=== PATIENT | male | born 1955 | race African-American/Black ===

== ENCOUNTER 2016-10-31 08:12 | Inpatient (IN) | payer MEDICARE ==
[~2016-10-31] VITALS: Ht 182.9 cm; Wt 137.9 kg
[~2016-10-31 08:12] MED LIST: ACETAMINOPHEN500 M1 PO; ALLEGRA 60 MG T60 MG PO; ATIVAN2 MG/ML IV; BENADRYL INJ50 MG/ML IV; BOUDREAUXS113 GM TP; CELEBREX200 MG PO; CLARINEX5 MG PO; CLEOCIN PREMIX600 MG IV; COLACE100 MG PO; COUMADIN5 MG PO; CYMBALTA30 MG PO; DEXTROSE 50%/WA50 ML IV; DIFLUCAN100 MG PO; DIOVAN HCT 80/11 TAB PO; DIOVAN80 MG PO; GLUCAGON1 MG/KIT IM; GLUCAGON1 MG/KIT SQ; GLUCOPHAGE1000 MG PO; GLUCOPHAGE500 MG PO; HUMALOG 30100 UNITS/; HUMALOG 30100 UNITS/ SC; HYDROCHLOROTH12.5 M1 PO; INSTA-GLUCOSE31 GM PO; LANTUS INSULIN10 ML SC; LANTUS SOL100 UNIT/1 SC; LANTUS SOL100 UNIT/1 SQ; LASIX20 MG PO; LEVAQUIN PREMI750 MG IV; MICRO-K10 MEQ PO; NARCAN INJ0.4 MG/ML IV; NEURONTIN 300300 MG PO; NEXIUM40 MG PO; NORCO 10/325 TA1 TA1 PO; NORVASC5 MG PO; ONDANSETRON4 MG/2 M3 IV; OXYCONTIN20 MG PO; OXYCONTIN30 MG PO; PERCOCET 10/3251 TA1 PO; PRILOSEC20 MG PO; PROTONIX40 MG PO; ROBAXIN-750750 MG PO; ROCEPHIN IV; SALINE FLUSH10 ML IJ; SODIUM CL 0.41000 ML IV; TUMS500 MG PO; XANAX1 MG PO; XARELTO10 MG PO
[2016-10-31 09:42] LABS: BASOPHILS 0.2 % (0.0-2.0); EOSINOPHILS 2.4 % (0-7); HEMATOCRIT 38.8 % (42.0-54.0); HEMOGLOBIN 13.8 g/dL (13.5-17.5); IMMATURE GRANULOCYTES 0.2 % (0-5); LYMPHOCYTES 19.9 % (15-50); MCH 28.4 pg (26.0-34.0); MCHC 35.6 g/dL (31.0-37.0); MCV 79.8 fL (80.0-100.0); MEAN PLATELET VOLUME 9.2 fL (7.4-10.4); MONOCYTES 8.3 % (2-11); PLATELET COUNT 276 10x3/uL (130-400); RBC 4.86 10x6/uL (4.20-6.10); RDW 13.2 % (11.5-14.5); WBC 12.3 10x3/uL (4.8-10.8)
[2016-10-31 09:53] LABS: ALBUMIN 3.2 g/dL (3.4-5.0); ANION GAP 11.5 mmol/L (8-16); BILIRUBIN - TOTAL 0.77 mg/dL (0.2-1.3); CALCIUM 9.2 mg/dL (8.5-10.1); CARBON DIOXIDE 28.7 mmol/L (21.0-32.0); CREATININE - SERUM 1.3 mg/dL (0.6-1.3); POTASSIUM - SERUM 4.2 mmol/L (3.5-5.1); PROTEIN - SERUM 8.7 g/dL (6.4-8.2)
[2016-10-31 10:19] LABS: C-REACTIVE PROTEIN 25.6 mg/dL (0.0-0.9)
[2016-10-31 10:46] LABS: ERYTHROCYTE SEDIMENTATION RATE 55 mm/hr (0-20)
[2016-10-31] MEDS ORDERED: LANTUS INSULIN10 ML SC (11:24)
[2016-10-31] MEDS ORDERED: LYRICA100 MG PO (11:24)
[2016-10-31] MEDS ORDERED: INVOKANA100 MG PO (11:24)
[2016-10-31] MEDS ORDERED: PRILOSEC10 M1 PO (11:25)
[2016-10-31] MEDS ORDERED: HYDROCODONE-APA1 TAB PO (11:26)
[2016-10-31] MEDS ORDERED: XYZAL5 MG PO (11:26)
[2016-10-31] MEDS ORDERED: MOBIC7.5 MG PO (11:26)
[2016-10-31] MEDS ORDERED: GLUCOPHAGE1000 MG PO (11:27)
[2016-10-31] MEDS ORDERED: DIOVAN HCT 80-11 TAB PO (11:27)
[2016-10-31] MEDS ORDERED: FUROSEMIDE20 MG PO (11:27)
[2016-10-31] MEDS ORDERED: CYMBALTA60 MG PO (11:28)
[2016-10-31] MEDS ORDERED: UROCIT-K10 MEQ PO (11:28)
[2016-10-31] MEDS ORDERED: ROBAXIN-750750 MG PO (11:29)
[2016-10-31 11:56] VITALS: BP 118/61; BMI 41.3
--- NOTE | 2016-10-31 12:10 | NUR ---
RECIEVED PT FROM ER WHEELCHAIR, ALERT AND ORIENTED, AT BEDSIDE, ORIENTED PT TO ROOM, VS STABLE, CALL LIGHT IN REACH, WILL CONTINUE PLAN OF CARE
--- NOTE | 2016-10-31 15:53 | NUR ---
Patient Name: ROSEMARY KEY Admission Status: ER Accout number: [id number] Admission Date: 10-31-2016 : 1955 Admission Diagnosis: Attending: ТАТЬЯНА Current LOS: 1 Anticipated DC Date: 11-05-2016 Planned Disposition: Home with Home Health Primary Insurance: [employer] CHOICE PPO MCR ADVANT Discharge Planning Comments: CM MET WITH PATIENT REGARDING D/C NEEDS AND PLANS. PATIENT STATED HE LIVES WITH HIS (SAMPSON) AND SHE WILL DRIVE HIM HOME AT DISCHARGE. PATIENT STATED HE HAS 3 STEPS W/RAILS TO ENTER HIS HOME AND NO STAIRS INSIDE. PATIENT IS INDEPENDENT AND HAS A CANE, WALKER, AND GLUCOMETER AT HOME. PATIENT STATED HE CHECKS HIS BS 2X DAILY. PATIENTS PCP IS DR. SCHOFIELD AND PHARMACY IS [facility] ON [address]. PATIENT HAS SIGNED THE CECY FORM WITH [facility] IF NEEDED. CM WILL CONTINUE TO FOLLOW PATIENT WITH D/C NEEDS AND PLANS. PCP DR. KANWAL [facility] [phone] [place] () [phone] Rope Maker: Rosalie Andrade Is the patient Alert and Oriented? Yes 0 * How many steps to enter\exit or inside your home? 3 W/RAILS 0 * PCP DR. SCHOFIELD 0 * Pharmacy [facility] [address] * Preadmission Environment Home with Family 0 * ADLs Independent 0 * Equipment Cane Glucometer Walker 0 * List name and contact numbers for known caregivers / representatives who currently or will assist patient after discharge: SAMPSON () [phone] 0 * Community resources currently utilized None 0 * Additional services required to return to the preadmission environment? Yes 0 * Can the patient safely return to the preadmission environment? Yes 0 * Has this patient been hospitalized within the prior 30 days at any hospital? No 0 Grand Total: 0
[2016-10-31 16:13] VITALS: BP 121/60
--- NOTE | 2016-10-31 18:25 | NUR ---
PT UP TO BATHROOM, DENIES NEEDS, WILL CONTINUE TO MONITOR
[2016-10-31 23:00] VITALS: BP 99/55
[2016-11-01 08:44] VITALS: BP 107/57
--- NOTE | 2016-11-01 10:40 | NUR ---
VANCOMYCIN 1GM/250ML INFUSING ON ARRIVAL TO PACU WITH 125 CC LEFT TO COUNT
[2016-11-01 11:04] VITALS: BP 119/63
--- NOTE | 2016-11-01 11:05 | NUR ---
RETURNED TO ROOM POST OP AWAKE NAD ALERT ORIENTED X 3 PAIN LEVEL 3 VS WNL
[2016-11-01 13:37] VITALS: Ht 182.9 cm; Wt 137.9 kg
--- NOTE | 2016-11-01 14:49 | NUR ---
SITTING UP IN BED WITH VISITORS IN ROOM. VERY CONCERNED ABOUT HOME MEDICATIONS. NEW ORDERS ARE IN TO GIVE THESE. DISCUSSED WITH PATIENTS NURSE AND SHE SAID SHE WAS FIXING TO GIVE THESE. DRESSING TO LEFT FOOT DRY AND INTACT.
[2016-11-01 16:50] VITALS: BP 141/67
[2016-11-01 21:00] VITALS: BP 127/57
[2016-11-02 01:00] VITALS: BP 130/66
[2016-11-02 05:00] VITALS: BP 133/68
--- NOTE | 2016-11-02 07:38 | NUR ---
PT SITTING UP ON SIDE OF THE BED DENIES NEEDS WILL CONT TO MONITOR.
[2016-11-02 08:30] VITALS: BP 107/62
--- NOTE | 2016-11-02 10:46 | OP ---
PATIENT NAME: ROSEMARY KEY MEDICAL RECORD: [id number] :55 LOCATION:[id number] ADMISSION DATE:10/31/16 SURGEON: LANDON KELLEY MD DATE OF OPERATION: 11/01/2016 Orthopedic Surgery Operative Note PREOPERATIVE DIAGNOSIS: Gangrenous osteomyelitis, right fourth toe. POSTOPERATIVE DIAGNOSIS: Gangrenous osteomyelitis, right fourth toe. PROCEDURE: Open amputation of right fourth toe. SURGEON: Landon Kelley MD ANESTHESIA: General. INTRAOPERATIVE COMPLICATIONS: None. SUMMARY OF PATHOLOGIC FINDINGS: Unfortunately, this patient had through and through infection at the base of the right fourth toe with obvious osteomyelitis. Cultures were taken at the toe and was set for permanent specimen. This was not amenable to closure as the infection went into the plantar aspect of the foot. It is going to require further surgery. OPERATIVE SUMMARY IN DETAIL: After obtaining the appropriate preoperative orthopedic surgery consent as well as anesthetic consultation, evaluation and clearance, the patient about operating room and placed on the operating table in supine position. After general laryngeal mask was administered, tourniquet was placed on the proximal aspect of the right lower extremity. It was not deployed during the case. Right lower extremity was prepped and draped in routine sterile fashion. An elliptical incision was made around the toe and was taken off proximal to the MTP joint as the patient had severe purulent osteomyelitis as well as infection into the plantar portion of the foot. This was all debrided back to adequate bleeding tissue. Cultures were taken. The wound was then irrigated and packed with half inch iodoform. Sterile dressings were applied. The patient was awakened, taken to recovery in stable condition. All final needle and sponge counts were correct. TRANSINT:[id number] Voice Confirmation ID: [id number] DOCUMENT ID: [id number] LANDON KELLEY MD at 1046 CC: [id number] DICTATION DATE: 11/01/16 1027 ACCOUNTS PAYABLE PROFESSIONAL: 11/01/16 1148 [place] [address]
[2016-11-02 12:03] VITALS: BP 109/50
--- NOTE | 2016-11-02 12:16 | NUR ---
PT SITTING UP IN BED. TALKING VERY LOUDLY ON THE PHONE. JOKING WITH NURSING STAFF. WAS HERE BUT LEFT. PT DENEIS NEEDS AT THIS TIME WILL CONT TO MONITOR.
[2016-11-02 16:13] VITALS: BP 120/67
--- NOTE | 2016-11-02 17:02 | NUR ---
PT SITTING UP ON SIDE OF BED EATING DINNER DENIES NEEDS WILL CONT TO MONITOR.
--- NOTE | 2016-11-02 18:16 | NUR ---
PT SITTING UP IN BED DENIES NEEDS
--- NOTE | 2016-11-02 19:45 | NUR ---
REC'D IN BED AWAKEN AND ALERT. RESP EVEN AND UNLABORED WITH NO DISTRESS NOTED. CAN EXPRESS NEEDS AND WANTS. DENIES ANY PAIN OR DISCOMFORT AT THIS TIME. TURN AND REPOSITION SELF AB KATERINA. REMAIN ON CONTACT ISOLATION PER ORDERS. ASSESSEMT COMPLETED. NO C/O NOTED OR VOICED. C/L IN REACH AT BEDSIDE.
[2016-11-02 21:14] VITALS: BP 155/78
[2016-11-03 00:42] VITALS: BP 116/51
--- NOTE | 2016-11-03 01:20 | NUR ---
RESTING WITH EYES CLOSED, RESP WITH EASE, NO DISTRESS NOTED, CONTACT AND FALL PRECAUTIONS IN PLACE, CL IN REACH
[2016-11-03 06:08] VITALS: BP 121/61
--- NOTE | 2016-11-03 07:00 | NUR ---
REPORT RECEIVED FROM ENTERTAINMENT USHER NURSE. CALL LIGHT IN REACH.
--- NOTE | 2016-11-03 08:20 | NUR ---
PATIENT IV FLUSHED WITH 10 ML SF. INFUSING WITH NO PROBLEMS NOTED AT THIS TIME. NO COMPLAINTS. PATIENT SITTING UP ON SIDE OF BED EATING. CALL LIGHT WITHIN REACH.
[2016-11-03 08:43] VITALS: BP 147/56
--- NOTE | 2016-11-03 09:58 | NUR ---
ASSESSMENT COMPLETED. NORCO PO WITH AM MEDS ADMINISTERED. CALL LIGHT IN REACH. WILL CONTINUE WITH PLAN OF CARE.
--- NOTE | 2016-11-03 11:53 | NUR ---
IN HALLWAYS WITH FAMILY MEMBER. WAITING ON PATIENT TO GET BACK TO HIS ROOM.
--- NOTE | 2016-11-03 12:13 | NUR ---
KATRIN CARMEN. FSBS 139 SO NO COVERAGE REQUIRED.
[2016-11-03 12:30] VITALS: BP 138/75
--- NOTE | 2016-11-03 13:28 | NUR ---
REQUESTING PAIN PILLS BUT TOO SOON. INFORMED PATIENT THAT HE HAS AN ORDER FOR A MORPHINE SOLE STITCHER HAND BUT HE REFUSES AT THIS TIME. WILL BRING PAIN MEDS WHEN DUE.
--- NOTE | 2016-11-03 14:27 | NUR ---
SPOKE WITH PORTER ABOUT PATIENT HAVING PAIN MEDS SOONER D/T PATIENT'S REQUEST.
--- NOTE | 2016-11-03 16:15 | NUR ---
RIDING IN WC IN HALLWAY. NO NEEDS VOICED AT THIS TIME.
[2016-11-03 16:43] VITALS: BP 110/60
--- NOTE | 2016-11-03 17:19 | NUR ---
SAMANTA PATEL. FSBS 193. HUMALOG 4 UNITS SUBQ TO RIGHT ARM.
--- NOTE | 2016-11-03 18:08 | NUR ---
NO CHANGES IN INITIAL ASSESSMENT. STILL REFUSES SCDs. CALL LIGHT IN REACH. WILL CONTINUE WITH PLAN OF CARE.
--- NOTE | 2016-11-03 19:45 | NUR ---
SITTING IN SIDE OF BED AWAKE AND ALERT VISITING WITH FAMILY. RESP EVEN AND UNLABORED WITH NO DISTRESS NOTED OR VOICED. CAN EXPRESS NEEDS AND WANTS. DRESSING CLEAN DRY AND INTACT TO RIGHT FOOT. ASSESSMENT COMPLETED. C/L IN REACH AT BEDSIDE.
[2016-11-03 21:35] VITALS: BP 137/65
[2016-11-04 01:00] VITALS: BP 112/46
--- NOTE | 2016-11-04 02:00 | NUR ---
PT IN BED WITH NO NEEDS. LEFT FOREARM IV PATENT AND SALINE LOC. PT REFUSES SCD'S. DRESSING TO LEFT FOOT C/D/I. ISOLATION PRECAUTIONS IN PLACE. SIDE RAILS ARE UP X 2. BED IS LOW. CALL LIGHT IN REACH.
[2016-11-04 04:00] VITALS: BP 134/71
[2016-11-04 08:29] VITALS: BP 110/58
--- NOTE | 2016-11-04 09:01 | NUR ---
ASSESSMENT COMPLETED. NORCO PO WITH AM MEDS ADMINISTERED. DR. KELLEY PULLED OFF DRSG TO RIGHT FOOT. CHANGED PER ORDER. CANNOT FIND LANTUS AT THAT TIME. REFUSES SCDs. CALL LIGHT IN REACH. WILL CONTINUE WITH PLAN OF CARE.
--- NOTE | 2016-11-04 10:28 | NUR ---
WITHOUT NEEDS AT PRESENT.CALL LIGHT IN REACH
--- NOTE | 2016-11-04 11:11 | NUR ---
LANTUS 40 UNITS AND REGULAR INSULIN SUBQ TO RIGHT ARM D/T BLOOD SUGAR OF 253. IV ZOSYN. GUANAKON PO. CALL LIGHT IN REACH.
--- NOTE | 2016-11-04 12:36 | NUR ---
REQUESTING PAIN MEDS. DEJA 2 PO. CALL LIGHT IN REACH.
--- NOTE | 2016-11-04 14:11 | NUR ---
NEW ORAL ABX ADMINISTERED. SIDE EFFECTS DISCUSSED.
--- NOTE | 2016-11-04 14:13 | NUR ---
NUTRITION MONITORING & EVAL CHART REVIEWED. PT REMAINS IN ISOLATION. 100% INTAKE DIABETIC DIET. WILL CONTINUE TO PROVIDE DIET, MONITOR PT PROGRESS. RD FOLLOWING
[2016-11-04 14:42] LABS: BASOPHILS 0.3 % (0.0-2.0); EOSINOPHILS 4.9 % (0-7); HEMATOCRIT 36.3 % (42.0-54.0); HEMOGLOBIN 12.8 g/dL (13.5-17.5); IMMATURE GRANULOCYTES 0.2 % (0-5); MCHC 35.3 g/dL (31.0-37.0); MCV 79.4 fL (80.0-100.0); MONOCYTES 5.6 % (2-11); PLATELET COUNT 305 10x3/uL (130-400); RBC 4.57 10x6/uL (4.20-6.10); RDW 13.1 % (11.5-14.5); WBC 8.7 10x3/uL (4.8-10.8)
[2016-11-04 14:51] LABS: ANION GAP 13.1 mmol/L (8-16); CALCIUM 8.4 mg/dL (8.5-10.1); CARBON DIOXIDE 25.7 mmol/L (21.0-32.0); CREATININE - SERUM 1.2 mg/dL (0.6-1.3); POTASSIUM - SERUM 4.8 mmol/L (3.5-5.1)
--- NOTE | 2016-11-04 16:20 | NUR ---
OUT IN HALLWAY WITH . NO DISTRESS NOTED.
[2016-11-04 16:57] VITALS: BP 128/65
--- NOTE | 2016-11-04 17:10 | NUR ---
8 UNITS INSULIN D/T FSBS OF 202.
--- NOTE | 2016-11-04 18:11 | NUR ---
NO CHANGES IN INITIAL ASSESSMENT. STILL RFUSES SCDs. CALL LIGHT IN REACH. WILL CONTINUE WITH PLAN OF CARE.
[2016-11-04 19:00] VITALS: BP 108/62
--- NOTE | 2016-11-04 19:55 | NUR ---
PATIENT REFUSED MEDS EXCEPT FOR ANTIBIOTICS. PATIENT STATED HE DOES NOT TAKE HIS MEDS THIS LATE AT HOME. PATIENT'S BED IN LOWEST POSITION AND CALL LIGHT WITHIN REACH.
[2016-11-05 04:00] VITALS: BP 135/75
[2016-11-05 08:05] VITALS: BP 111/59
[2016-11-05] MEDS ORDERED: KEFLEX500 MG PO (08:27)
[2016-11-05] MEDS ORDERED: CLEOCIN HCL150 MG PO (08:28)
[2016-11-05] MEDS ORDERED: DAKIN'S 0.125%480 M1 TOPICAL (08:29)
[2016-11-05] MEDS ORDERED: HYDROCODONE-APA1 TAB PO (08:30)
--- NOTE | 2016-11-05 08:58 | NUR ---
PT ASSESSEMENT COMPLETE ON WALKING ROUNDS PT ALERT ORIENTED X 3 LUNGS CLEAR BILATERALY BSA X 4 DRESSING TO RIGHT FOOT IN TACT. PT TO DISCHARGE TODAY IF OK WITH DR KELLEY. WILL AWAIT ORDERS
--- NOTE | 2016-11-05 10:50 | NUR ---
PATIENT IN CONTACT ISOLATION. ISOLATION PRECAUTIONS MAINTAINED. MARQUEZ NGUYEN IN ROOM WITH PATIENT CHANGING DRESSING ON PATIENT'S FOOT. PATIENT STATED HE IS ABOUT TO BE DISCHARGED. PATIENT SMILING, STATED HE IS EXCITED TO GET TO GO HOME. PATIENT DENIES NEEDS.
--- NOTE | 2016-11-05 10:53 | NUR ---
DRESSING CHANGED PER ORDER TO RIGHT FOOT WAKING SHOE ON AND INSTRUCTIONS GIVEN FOR DRESSING CHANGE WELL DISCAHRGE INSTRUCTIONS GIVEN PT STATED UNDERSTANDING. PIV DISCONTINUED NO DISTRESS NOTED TO TRANSPORT HOME VIA PRIVATE VEHICLE.
== END 2016-11-05 12:34 | disposition home health service (06) | DRG 256 ==
LOC: D.ER 08:12 → D.MS 10:49
PROVIDERS: Emergency Medicine; Orthopaedic Surgery; Student in an Organized Health Care Education/Training Program; ADMIT Legal Medicine
PROC: 0Y6V0Z0 Detachment at Right 4th Toe, Complete, Open Approach (ICD-10-PCS; principal; 2016-11-01 11:30)
DX: E11.52 Type 2 diabetes mellitus with diabetic peripheral angiopathy with gangrene (principal); M86.9 Osteomyelitis, unspecified; Z68.41 Body mass index [BMI] 40.0-44.9, adult; E11.69 Type 2 diabetes mellitus with other specified complication; E11.42 Type 2 diabetes mellitus with diabetic polyneuropathy; B95.62 Methicillin resistant Staphylococcus aureus infection as the cause of diseases classified elsewhere; B95.1 Streptococcus, group B, as the cause of diseases classified elsewhere; B96.4 Proteus (mirabilis) (morganii) as the cause of diseases classified elsewhere; B96.1 Klebsiella pneumoniae [K. pneumoniae] as the cause of diseases classified elsewhere; Z79.4 Long term (current) use of insulin; B19.20 Unspecified viral hepatitis C without hepatic coma; I10 Essential (primary) hypertension; E66.01 Morbid (severe) obesity due to excess calories; E78.5 Hyperlipidemia, unspecified; E03.9 Hypothyroidism, unspecified; M19.90 Unspecified osteoarthritis, unspecified site; F32.9 Major depressive disorder, single episode, unspecified; F17.200 Nicotine dependence, unspecified, uncomplicated

== ENCOUNTER → 2016-12-05 19:49 | Outpatient (CLI) | payer MEDICARE ==
[2016-11-01 13:37] VITALS: BMI 41.2
[~2016-12-05 19:49] MED LIST changes: +CLEOCIN HCL150 MG PO; +CYMBALTA60 MG PO; +DAKIN'S 0.125%480 M1 TOPICAL; +DIOVAN HCT 80-11 TAB PO; +FUROSEMIDE20 MG PO; +HYDROCODONE-APA1 TAB PO; +INVOKANA100 MG PO; +KEFLEX500 MG PO; +LYRICA100 MG PO; +MOBIC7.5 MG PO; +PRILOSEC10 M1 PO; +UROCIT-K10 MEQ PO; +XYZAL5 MG PO
== END | disposition home or self-care (01) ==
LOC: D.LABREF 19:49
DX: M86.9 Osteomyelitis, unspecified (principal); Z89.421 Acquired absence of other right toe(s)

== ENCOUNTER → 2017-03-21 09:11 | Outpatient (CLI) | payer MEDICARE ==
[2016-11-01 13:37] VITALS: BMI 41.2
[2017-03-21 09:40] LABS: BASOPHILS 0.3 % (0-2); EOSINOPHILS 4.4 % (0-7); HEMATOCRIT 41.6 % (42.0-54.0); HEMOGLOBIN 14.9 g/dL (13.5-17.5); IMMATURE GRANULOCYTES 0.1 % (0-5); LYMPHOCYTES 40.2 % (15-50); MCH 28.4 pg (26.0-34.0); MCHC 35.8 g/dL (31.0-37.0); MCV 79.2 fL (80.0-100.0); MEAN PLATELET VOLUME 9.3 fL (7.4-10.4); RBC 5.25 10x6/uL (4.20-6.10); RDW 13.8 % (11.5-14.5); WBC 7.3 10x3/uL (4.8-10.8)
[2017-03-21 09:47] LABS: PLATELET COUNT 193 10x3/uL (130-400)
[2017-03-21 11:28] LABS: ERYTHROCYTE SEDIMENTATION RATE 15 mm/hr (0-20)
== END | disposition home or self-care (01) ==
LOC: D.RAD 09:11
PROVIDERS: Orthopaedic Surgery
DX: M25.552 Pain in left hip (principal)

== ENCOUNTER → 2017-03-26 07:42 | Outpatient (CLI) | payer MEDICARE ==
[2016-11-01 13:37] VITALS: BMI 41.2
== END | disposition home or self-care (01) ==
LOC: D.NM 07:42
DX: M25.552 Pain in left hip (principal)

== ENCOUNTER → 2017-04-02 19:25 | Outpatient (CLI) | payer MEDICARE ==
[2016-11-01 13:37] VITALS: BMI 41.2
== END | disposition home or self-care (01) ==
LOC: D.LABREF 19:25
DX: Z96.642 Presence of left artificial hip joint (principal)

== ENCOUNTER 2017-04-09 10:00 | Inpatient (IN) | payer MEDICARE ==
[~2017-04-09] VITALS: Ht 185.4 cm; Wt 90.7 kg
[2017-04-09 11:57] LABS: APPEARANCE CLEAR (CLEAR); BILIRUBIN NEGATIVE (NEGATIVE); COLOR YELLOW (YELLOW); GLUCOSE 1000 mg/dL (NEGATIVE); KETONE NEGATIVE (NEGATIVE); LEUKOCYTE ESTERASE NEGATIVE (NEGATIVE); NITRITE NEGATIVE (NEGATIVE); PROTEIN NEGATIVE (NEGATIVE); UROBILINOGEN NORMAL (NORMAL)
[2017-04-09 12:21] LABS: APTT 30.9 SECONDS (22.8-39.4); INR 0.93 (0.85-1.17); PROTIME 12.3 SECONDS (11.6-15.0)
[2017-04-09 12:23] LABS: ALBUMIN 3.5 g/dL (3.4-5.0); ANION GAP 12.4 mmol/L (8-16); BILIRUBIN - TOTAL 0.3 mg/dL (0.2-1.3); CALCIUM 8.8 mg/dL (8.5-10.1); CARBON DIOXIDE 27.1 mmol/L (21.0-32.0); CREATININE - SERUM 1.2 mg/dL (0.6-1.3); POTASSIUM - SERUM 4.5 mmol/L (3.5-5.1); PROTEIN - SERUM 7.7 g/dL (6.4-8.2)
[2017-04-09 12:49] LABS: BASOPHILS 0.4 % (0-2); HEMATOCRIT 40.7 % (42.0-54.0); HEMOGLOBIN 14.3 g/dL (13.5-17.5); IMMATURE GRANULOCYTES 0.4 % (0-5); LYMPHOCYTES 47.9 % (15-50); MCH 28.3 pg (26.0-34.0); MCHC 35.1 g/dL (31.0-37.0); MCV 80.4 fL (80.0-100.0); MEAN PLATELET VOLUME 9.6 fL (7.4-10.4); MONOCYTES 7.1 % (2-11); NEUTROPHILS 39.2 % (40-80); PLATELET COUNT 237 10x3/uL (130-400); RBC 5.06 10x6/uL (4.20-6.10); RDW 13.9 % (11.5-14.5); WBC 8.1 10x3/uL (4.8-10.8)
[2017-04-09] MEDS ORDERED: XYZAL5 MG PO (14:30)
[2017-04-14] VITALS (7 sets, daily range): BP systolic 129–188; BP diastolic 66–95; BMI 39.6
[2017-04-15] VITALS (10 sets, daily range): BP systolic 139–210; BP diastolic 55–111; BMI 26.4
--- NOTE | 2017-04-15 05:25 | NUR ---
ABOUT 1/3 OF THE PINK PAD THAT IS UNDER PATIENT IS SATURATED WITH BLOOD FROM THE LEFT HIP. RE-ENFORCED THE DRESSING WITH 2 BOXES OF 4X4 GAUZE AND AN ABD PAD. CHANGED THE PAD. BROUGHT PATIENT A CUP OF ICE WATER. PATIENT STATED HE PAIN IS STILL SEVERE BUT BETTER THEN IT HAS BEEN ALL NIGHT. PATIENT DENIES NEEDS AT THIS TIME.
[2017-04-15 06:36] LABS: HEMATOCRIT 36.7 % (42.0-54.0); HEMOGLOBIN 12.9 g/dL (13.5-17.5); MCH 28.5 pg (26.0-34.0); MCHC 35.1 g/dL (31.0-37.0); MCV 81.2 fL (80.0-100.0); MEAN PLATELET VOLUME 9.4 fL (7.4-10.4); RBC 4.52 10x6/uL (4.20-6.10); WBC 11.5 10x3/uL (4.8-10.8)
--- NOTE | 2017-04-15 08:20 | NUR ---
AWAKE AND ALERT. ORIENTED X3. NO C/O AT THIS TIME. IS HAVING SOME PERIODS OF CONFUSION RE CURRENT CONDITION. LUNGS ARE CLEAR BILATERALLY, NO COUGH NOTED. SKIN IS INTACT WITHOUT REDNESS EXCEPT INCISION TO LEFT HIP WHICH HAS A DRY INTACT DRESSING IN PLACE. IV TO LEFT WRIST IS PATENT WITHOUT REDNESS AT INSERTION SITE. NEURO CHECKS WNL. DENIES NEEDS AT THIS TIME.
--- NOTE | 2017-04-15 10:00 | NUR ---
RESTING QUIETLY VOIDED 600 CC CLEAR YELLOW URINE IN URINAL. DENIES NEEDS.
--- NOTE | 2017-04-15 12:00 | NUR ---
FSBD 295. GIVEN 6 UNITS HUMALOG SUBQ PER SS. LUNCH SERVED IN ROOM. AT BEDSIDE.
--- NOTE | 2017-04-15 13:26 | NUR ---
REQUESTED AND GIVNE ONE PERCOCET PO FOR C/O LEFT HIP PAIN LEVEL 8. WILL MONITOR.
--- NOTE | 2017-04-15 17:00 | NUR ---
FSBS 195. MELANI 6 UNITS HUMALOG SUBQ PER SS. SUPPER SERVED IN ROOM.
--- NOTE | 2017-04-15 18:00 | NUR ---
DRESSING TO LEFT HIP IS SOILED WITH BLOODY DRAINAGE. DRESSING TAKEN DOWN TO ORIGIANL AND REPLACED WITH 4X4 AND ABDOMINAL PADS. INCONTINENT OF URINE. SKIN CARE PER STAFF. LINENS CHANGED. REQUESTED AND GIVNE ONE PERCOCET PO FOR C/O LEFT HIP PAIN LEVEL 9. WILL MONITOR.
--- NOTE | 2017-04-15 21:00 | NUR ---
PATIENT'S DRESSING TO LEFT HIP IS SATURATED. REMOVED THE GAUZE AND ABD PADS, COMPLETELY SATURATED. THE AQUACEL DRESSING SATURATED. REMOVING AND CLEANED WITH STERILE WOUND ELECTRICAL LINE WORKER SPRAY AND PATTED DRY WITH STERILE 4X4 GAUZE. APPLIED A NEW AQUACEL DRESSING. THE INFERIOR PORTION OF THE INCISION, THE LAST 2 GEO, ARE NOT COVERED BY THE AQUACEL DRESSING. APPLIED A MEPILEX DRESSING TO COVER THE LAST 2 GEO OF THE INCISION. INCISION IS NOW FULLY COVERED. APPLIED 2 PACKAGES OF 4X4 GAUZE AND 2 ABD PADS TO THE INCISION AND TAPED IT ALL DOWN. PATIENT LYING ON HIS RIGHT SIDE INDEPENDENTLY THROUGH THE ENTIRE DRESSING CHANGE. CHANGED PINK PAD, PATIENT ROLLED ALMOST COMPLETELY INDEPENDENTLY TO HIS FAR RIGHT SIDE, THEN TO HIS BACK I CHANGED THE PAD. PATIENT TOLERATED WELL, DID HOLLAR OUT IN PAIN WITH THE MOVEMENT OF HIS LEFT LEG. PATIENT'S SON IS AT BEDSIDE. BOTH DENY NEEDS. BROUGHT 2 ICE PACKS AND PUT THEM ON THE LEFT HIP, ON TOP OF THE DRESSING. BED IN LOWEST POSITION, CALL LIGHT IN REACH. BED RAILS UP X'S 2.
[2017-04-16] VITALS: BP 134/70
[2017-04-16 04:00] VITALS: BP 114/55
--- NOTE | 2017-04-16 06:12 | NUR ---
PATIENT RESTLESS, MOVING AROUND IN THE BED OFTEN. WILL GO TO SLEEP FOR A FEW MINUTES, THEN WAKE UP IN PAIN AND HOLLAR OUT. PATIENT MOVING AROUND IN THE BED, MOANING AND HOLLARING UPON MOVEMENT. PATIENT DENIES NEEDS. ASSISTED PATIENT GETTING REPOSITIONED. BED IN LOWEST POSITION, CALL LIGHT IN REACH. BED RAILS UP X'S 2.
[2017-04-16 06:28] LABS: HEMATOCRIT 31.5 % (42.0-54.0); MCH 28.2 pg (26.0-34.0); MCHC 34.9 g/dL (31.0-37.0); MCV 80.8 fL (80.0-100.0); MEAN PLATELET VOLUME 9.2 fL (7.4-10.4); PLATELET COUNT 181 10x3/uL (130-400); RDW 13.9 % (11.5-14.5); WBC 9.8 10x3/uL (4.8-10.8)
--- NOTE | 2017-04-16 07:30 | NUR ---
AWAKE AND ALERT. ORIENTED X3. C/O NEED TO BE OOB. WILL GET PT TO ASSIST. LUNGS ARE CLEAR BILATERALLY, NO COUGH NOTED. SKIN IS INTACT WITHOUT REDNESS EXCEPT INCISION TO LEFT HIP WHICH IS STILL OOZING BLOOD. ICE BAG APPLIED TO AREA. WILL MONITOR. IV TO LEFT WRIST IS PATENT WTIHOUT REDNESS AT INSERTION SITE. DENIES NEEDS AT THIS TIME.
[2017-04-16 07:31] LABS: ERYTHROCYTE SEDIMENTATION RATE 47 mm/hr (0-20)
[2017-04-16 08:18] VITALS: BP 124/65
--- NOTE | 2017-04-16 09:00 | NUR ---
TOOK AM MEDS WITHOUT DIFFICULTY. REFUSED OFFER OF PAIN MED. WILL MONITOR.
--- NOTE | 2017-04-16 09:30 | NUR ---
UP TO SIDE OF BED PER PT. NOT AMBULATING AT THIS TIME.
--- NOTE | 2017-04-16 12:00 | NUR ---
FSBS 148. NO COVERAGE REQUIRED.
[2017-04-16 12:39] VITALS: BP 117/64
--- NOTE | 2017-04-16 13:04 | NUR ---
C/O GENERALIZED ITCHING. GIVEN 25MG BENADRYL SLOW IVP FOR SAME. WILL MONITOR.
[2017-04-16 15:59] VITALS: BP 125/62
--- NOTE | 2017-04-16 16:03 | NUR ---
RESTING QUIETLY AT THIS TIME. DENIES NEEDS. FAMILY AT BEDSIDE.
--- NOTE | 2017-04-16 17:19 | NUR ---
FSBS 152. GIVEN 2 UNITS HUMALOG SUBQ PER SS. ALSO REQUESTED ONE PERCOCET PO FOR C/O LEFT HIP PAIN LEVEL 7. WILL MONITOR.
--- NOTE | 2017-04-16 18:20 | NUR ---
ATE MOST OF SUPPER. REPORTS PAIN IMPROVED AT THIS TIME. AT BEDSIDE. NO CHANGES NOTED. DENIES NEEDS. ICE APPLIED TO LEFT HIP.
--- NOTE | 2017-04-16 19:15 | NUR ---
PATIENT IS AWAKE, ALERT AND ORIENTED X'S 4. RESPIRATINS ARE EVEN AND UNLABORED ON ROOM AIR. PATIENT'S SON AT BEDSIDE. ASSISTED PATIENT SCRATING HIS FOOT. PATIENT DENIES FURTHER NEEDS AT THIS TIME.
[2017-04-16 20:00] VITALS: BP 114/65
--- NOTE | 2017-04-16 23:11 | NUR ---
PATIENT IS RESTING QUIETLY WITH EYES CLOSED. PATIENT WAKES UP OCCASIONALLY AND MOANS IN PAIN, THEN GOES BACK TO SLEEP. HOB 30 DEGREES.
[2017-04-17] VITALS (7 sets, daily range): BP systolic 101–124; BP diastolic 39–60
--- NOTE | 2017-04-17 04:45 | NUR ---
LEFT HIP DRESSING SATURATED WITH BLOOD. REMOVED DRESSING, CLEANED WITH WOUND HOME AGENT AND STERILE 4X4 GAUZE. PATTED DRY USING THE GAUZE. APPLIED A NEW DRESSING USING 2 MEPILEX DRESSINGS TO COVER THE ENTIRE INCISION. THEN APPLIED 2 BOXES OF 4X4 GAUZE AND 2 ABD PADS, TAPED DOWN. CHANGED GOWN AND PAD.
[2017-04-17 06:17] LABS: ANION GAP 10.7 mmol/L (8-16); CALCIUM 8.2 mg/dL (8.5-10.1); CARBON DIOXIDE 27.5 mmol/L (21.0-32.0); CREATININE - SERUM 1.1 mg/dL (0.6-1.3); POTASSIUM - SERUM 4.2 mmol/L (3.5-5.1)
[2017-04-17 07:30] LABS: BASOPHILS 0.2 % (0-2); EOSINOPHILS 4.9 % (0-7); HEMATOCRIT 29.6 % (42.0-54.0); HEMOGLOBIN 10.3 g/dL (13.5-17.5); IMMATURE GRANULOCYTES 0.4 % (0-5); LYMPHOCYTES 12.9 % (15-50); MCH 28.1 pg (26.0-34.0); MCHC 34.8 g/dL (31.0-37.0); MCV 80.9 fL (80.0-100.0); MEAN PLATELET VOLUME 9.3 fL (7.4-10.4); NEUTROPHILS 70.6 % (40-80); PLATELET COUNT 198 10x3/uL (130-400); RBC 3.66 10x6/uL (4.20-6.10); WBC 8.4 10x3/uL (4.8-10.8)
--- NOTE | 2017-04-17 07:45 | NUR ---
AWAKE AND ALERT AT THIS TIME. ASSESSMENT PERFORMED PER FLOWSHEET. GRIZZLY WORKER IN USE FOR PAIN. DRESSING TO LEFT HIP, C/D/I. BED ALARM ON AND CALL LIGHT IN REACH. WILL CONTINUE WITH PLAN OF CARE.
--- NOTE | 2017-04-18 02:19 | NUR ---
ALERT & ORIENTED. DRESSING TO LEFT HIP C/D/I. PT RELIABILITY TECHNICIAN FOR PAIN CONTROL. GAVE PERCOCET FOR BREAKTHROUGH PAIN. NO OTHER NEEDS. WILL CONTINUE OT MONITOR.
[2017-04-18 03:51] VITALS: BP 136/55
[2017-04-18 06:15] LABS: BASOPHILS 0.2 % (0-2); EOSINOPHILS 5.5 % (0-7); HEMATOCRIT 28.6 % (42.0-54.0); IMMATURE GRANULOCYTES 0.3 % (0-5); MCH 27.9 pg (26.0-34.0); MCV 79.9 fL (80.0-100.0); PLATELET COUNT 212 10x3/uL (130-400); RBC 3.58 10x6/uL (4.20-6.10); RDW 13.9 % (11.5-14.5)
[2017-04-18 06:17] LABS: ANION GAP 11.4 mmol/L (8-16); CALCIUM 7.8 mg/dL (8.5-10.1); CARBON DIOXIDE 26.8 mmol/L (21.0-32.0); CREATININE - SERUM 1.2 mg/dL (0.6-1.3); POTASSIUM - SERUM 4.2 mmol/L (3.5-5.1)
[2017-04-18 06:19] LABS: WBC 6.2 10x3/uL (4.8-10.8)
[2017-04-18 08:25] VITALS: BP 125/62
--- NOTE | 2017-04-18 09:26 | NUR ---
SCHEDULED MEDICATIONS ADMINISTERED AT THIS TIME. BS 103, PT REFUSED LANTUS. ASSESSMENT PERFORMED AT THIS TIME. BED ALARM ON. IV TO LEFT WRIST PATENT. GRAPHICS EDIT TECHNICIAN IN USE FOR PAIN. CALL LIGHT IN REACH, WILL CONTINUE WITH PLAN OF CARE.
[2017-04-18 12:21] VITALS: BP 136/62
--- NOTE | 2017-04-18 13:30 | NUR ---
22 GUAGE IV SITED TO R FOREARM. X2 ATTEMPTS. RECONNECTED TO IV TUBING. ALERTED WALESKA POWELL.
--- NOTE | 2017-04-18 14:20 | NUR ---
22G IV SITED TO PT'S RIGHT FOREARM X4 ATTEMPTS. BRISK BLOOD RETURN PRESENT. ASSISTED PT TO SIDE OF BED SO THAT HE COULD USE URINAL AT THIS TIME.
--- NOTE | 2017-04-18 16:15 | NUR ---
Patient Name: ROSEMARY KEY Admission Status: Elective Accout number: [id number] Admission Date: 04-14-2017 : 1955 Admission Diagnosis:INFECT/INFLM REACTION DUE TO INTERNAL LEFT HIP PROSTH, Attending: IBRAHIMA Current LOS: 4 Anticipated DC Date: 04-21-2017 Planned Disposition: Home Primary Insurance: [employer] CHOICE PPO MCR ADVANT Discharge Planning Comments: CM MET WITH PATIENT REGARDING D/C NEEDS AND PLANS. PATIENT STATED HE LIVES WITH HIS AND SHE WILL DRIVE HIM HOME AT DISCHARGE. PATIENT STATED THERE IS ONE STEP TO ENTER HOME AND NO STAIRS INSIDE. PATIENT STATED HE IS INDEPENDENT WITH HIS CARE AND HAS A WALKER AND GLUCOMETER (CHECKS 2X DAILY) AT HOME. PATIENTS PCP IS DR. SCHOFIELD AND PHARMACY IS [facility] ON [address] PATIENT WANTS TO THINK ABOUT WHICH HOME HEALTH. CM WILL CONTINUE TO FOLLOW PATIENT WITH D/C NEEDS AND PLANS. PCP DR. [facility]ANWAL [facility] ON [address] [phone] [place] () [phone] Agriculture Engineer: Rosalie Andrade Is the patient Alert and Oriented? Yes 0 * How many steps to enter\exit or inside your home? 1 0 * PCP DR. SCHOFIELD 0 * Pharmacy [facility] ON [address] 0 * Preadmission Environment Home with Family 0 * ADLs Independent 0 * Equipment Glucometer Walker 0 * List name and contact numbers for known caregivers / representatives who currently or will assist patient after discharge: ELKIN () [phone] * Community resources currently utilized None 0 * Additional services required to return to the preadmission environment? Yes 0 * Can the patient safely return to the preadmission environment? Yes 0 * Has this patient been hospitalized within the prior 30 days at any hospital? No 0 Grand Total: 0
--- NOTE | 2017-04-18 19:50 | NUR ---
REC'D. ASSITING WITH BED BATH DRSG LEFT HIP DRY AND INTACT AT PRESENT TIME. STATES JUST CHGED. IT ABOUT 15MIN. AGO.MINIMAL AMT, SWELLING TO THIGH BUT PALABLE. FOOT WARM GOOD PEDAL PULSE WIGGLES TOES AND DORSIFLEXES C/O SOME NUMBNESS PRIOR TO INITIAL SURGERY.(DIABETIC) WILL CONTINUE TO MONITOR FOR ANY CHGES IN NEUROVASCULAR STATUS AND FOLLOW CURRENT PLAN OF CARE.
[2017-04-18 20:00] VITALS: BP 121/65
[2017-04-19] VITALS: BP 125/60
[2017-04-19 04:00] VITALS: BP 130/72
[2017-04-19 05:27] LABS: HEMATOCRIT 27.8 % (42.0-54.0); HEMOGLOBIN 9.6 g/dL (13.5-17.5); MCH 27.8 pg (26.0-34.0); MCHC 34.5 g/dL (31.0-37.0); MCV 80.6 fL (80.0-100.0); MEAN PLATELET VOLUME 8.7 fL (7.4-10.4); RBC 3.45 10x6/uL (4.20-6.10); WBC 5.8 10x3/uL (4.8-10.8)
[2017-04-19 05:36] LABS: CALC OSMOLALITY 272 mosm/kg (275-300); CALCIUM 8.1 mg/dL (8.5-10.1); CARBON DIOXIDE 27.2 mmol/L (21.0-32.0); CHLORIDE - SERUM 102 mmol/L (98-107); CREATININE - SERUM 0.9 mg/dL (0.6-1.3); POTASSIUM - SERUM 4.4 mmol/L (3.5-5.1); SODIUM 135 mmol/L (136-145); UREA NITROGEN 18 mg/dL (7-18); eGFR NON AFRICAN AMERICAN > 90 mL/min (90-120)
[2017-04-19 05:41] LABS: GLUCOSE 118 mg/dL (74-106)
--- NOTE | 2017-04-19 07:45 | NUR ---
ASSESSMENT COMPLETE. IV TO L HAND PATENT. 1/2NS INFUSING AT 30 CC/HR VIA PUMP. CARD SERVICES SPECIALIST DILAUDID 0.2-10-4 IN USE FOR PAIN CONTROL. DENIES ANY NEEDS AT THIS TIME.
[2017-04-19 08:02] VITALS: BP 107/72
[2017-04-19 11:49] VITALS: BP 132/67
--- NOTE | 2017-04-19 12:00 | NUR ---
SITTING UP ON SIDE OF BED. DENIES ANY NEEDS AT PRESENT.
--- NOTE | 2017-04-19 14:50 | NUR ---
TRANSFERRED TO ROOM 2215 WITH BELONGINGS.
[2017-04-19 16:22] VITALS: BP 129/65
--- NOTE | 2017-04-19 17:19 | NUR ---
DENIES ANY NEEDS AT PRESENT.
[2017-04-19 20:00] VITALS: BP 129/63
--- NOTE | 2017-04-19 20:00 | NUR ---
A&O, DENIES NEEDS, BED LOWEST POSITION, CALL LIGHTIN REACH, DRESSING TO LEFT HIP CHANGED AND CLEANED, WILL CONTINUE TO MONITOR
[2017-04-20] VITALS: BP 142/68
--- NOTE | 2017-04-20 02:02 | NUR ---
ALERT/AWAKE ORIENTED X 4. SITTING ON SIDE OF BED. DENIES ANY NEEDS OR DISCOMFORTS.
[2017-04-20 04:00] VITALS: BP 136/72
[2017-04-20 05:01] LABS: HEMATOCRIT 28.1 % (42.0-54.0); HEMOGLOBIN 9.8 g/dL (13.5-17.5); MCH 28.1 pg (26.0-34.0); MCHC 34.9 g/dL (31.0-37.0); MCV 80.5 fL (80.0-100.0); MEAN PLATELET VOLUME 8.7 fL (7.4-10.4); RBC 3.49 10x6/uL (4.20-6.10); WBC 6.7 10x3/uL (4.8-10.8)
[2017-04-20 05:11] LABS: CALC OSMOLALITY 276 mosm/kg (275-300); CALCIUM 8.4 mg/dL (8.5-10.1); CARBON DIOXIDE 30.2 mmol/L (21.0-32.0); CHLORIDE - SERUM 102 mmol/L (98-107); GLUCOSE 167 mg/dL (74-106); POTASSIUM - SERUM 4.5 mmol/L (3.5-5.1); SODIUM 135 mmol/L (136-145); UREA NITROGEN 21 mg/dL (7-18); eGFR NON AFRICAN AMERICAN 81 mL/min (90-120)
[2017-04-20 07:51] VITALS: BP 153/79
--- NOTE | 2017-04-20 07:52 | NUR ---
PATIENT SITTING UP ON THE SIDE OF HIS BED. PATIENT IS AWAKE, ALERT, AND ORIENTED X4. PATIENT RATES HIS PAIN LEVEL AN "8" ON A 0-10 SCALE. PATIENT REPORTS PAIN IN HIS LEFT HIP AREA. IV SITE PATENT WITHOUT ANY S/S OF INFECTION IN PATIENT'S LEFT HAND. ADMINISTRATIVE LAW JUDGE DILAUDID IN USE FOR PATIENT'S PAIN CONTROL. PATIENT DENIES ANY NEEDS AT PRESENT TIME. CALL LIGHT IN PATIENT'S REACH. WILL MONITOR PATIENT.
[2017-04-20 15:55] VITALS: BP 117/58
--- NOTE | 2017-04-20 16:52 | NUR ---
FSBS 157. 2 UNITS OF HUMALOG SLIDING SCALE INSULIN GIVEN TO PATIENT. PATIENT VISITING WITH HIS SISTER AND DENIES NEEDS AT PRESENT TIME. CALL LIGHT IN PATIENT'S REACH. WILL MONITOR.
[2017-04-20 20:00] VITALS: BP 138/64
--- NOTE | 2017-04-20 20:00 | NUR ---
ASSESSMENT PRE FLOWSHEET. DRESSING TO LEFT HIP OLD DRY BLOOD NOTED. IV PATENT LEFT HAND OF 1/2NS AT 30CC'S/HR SITE CLEAR. REFUSES SCD'S.FAMILY IN ROOM
--- NOTE | 2017-04-20 20:26 | NUR ---
C/O PAIN INCISIONAL AREA RATES #10 ON PAIN LEVEL. PERCOCET 10 TAB ONE PO GIVEN FOR PAIN CONTROL.
--- NOTE | 2017-04-20 21:15 | NUR ---
MEDS GIVEN PER MAR.
--- NOTE | 2017-04-21 | NUR ---
EYES CLOSED RESPIRATIONS WITH EASE AND UNLABORED.
--- NOTE | 2017-04-21 02:31 | NUR ---
C/O INCISIONAL PAIN RATES PAIN LEVEL #8 PERCOCET 10 TAB ONE PO GIVEN FOR PAIN CONTROL.
[2017-04-21 04:00] VITALS: BP 134/71
[2017-04-21 06:06] LABS: HEMATOCRIT 29.5 % (42.0-54.0); HEMOGLOBIN 10.3 g/dL (13.5-17.5); MCH 28.1 pg (26.0-34.0); MCHC 34.9 g/dL (31.0-37.0); MCV 80.6 fL (80.0-100.0); MEAN PLATELET VOLUME 8.8 fL (7.4-10.4); RBC 3.66 10x6/uL (4.20-6.10); RDW 13.8 % (11.5-14.5)
[2017-04-21 06:13] LABS: WBC 9.8 10x3/uL (4.8-10.8)
[2017-04-21 06:35] LABS: CALC OSMOLALITY 276 mosm/kg (275-300); CALCIUM 8.4 mg/dL (8.5-10.1); CARBON DIOXIDE 29.1 mmol/L (21.0-32.0); CHLORIDE - SERUM 101 mmol/L (98-107); POTASSIUM - SERUM 4.2 mmol/L (3.5-5.1); SODIUM 137 mmol/L (136-145); UREA NITROGEN 22 mg/dL (7-18); eGFR NON AFRICAN AMERICAN 81 mL/min (90-120)
[2017-04-21 06:36] LABS: GLUCOSE 97 mg/dL (74-106)
--- NOTE | 2017-04-21 08:05 | NUR ---
ASSESSMENT COMPLETE. IV TO L HAND PATENT. 1/2 NS INFUSING AT 30 CC/HR VIA PUMP. DRESSING TO L HIP C/D/I. SCABBED AREAS SCATTERED OVER BODY. DENIES ANY NEEDS AT PRESENT.
[2017-04-21 08:12] VITALS: BP 141/76
--- NOTE | 2017-04-21 10:00 | NUR ---
SITTING ON SIDE OF BED. DENIES ANY NEEDS AT THIS TIME.
--- NOTE | 2017-04-21 11:00 | NUR ---
CM met with patient and patient stated that he would like to go to in patient rehab. Meghan notified
[2017-04-21 12:06] VITALS: BP 122/67
[2017-04-21 12:59] VITALS: Ht 185.4 cm; Wt 90.7 kg
--- NOTE | 2017-04-21 15:00 | NUR ---
NO CHANGES NOTED AT PRESENT.
--- NOTE | 2017-04-21 15:31 | NUR ---
Rehab Note- Acute Rehab Prescreen order received. The patient has [employer] insurance and will require a PreAuth prior to an acute rehab stay. Awaiting OT eval for PreAuth at this time. Thank you for this referral! Will follow and begin the PreAuth process at this time. Meghan Lopez RN Clinical Liaison, [facility] Rehab
[2017-04-21 16:43] VITALS: BP 141/69
--- NOTE | 2017-04-21 18:18 | NUR ---
RESTING QUIETLY AT THIS TIME.
[2017-04-21 20:00] VITALS: BP 129/57
--- NOTE | 2017-04-21 20:00 | NUR ---
ASSESSMENT PER FLOWSHEET.IV PATENT LEFT HAND SALINE LOCKED. PATIENT SITTING ON SIDE OF BED. DRESSING TO LEFT HIP C/D/I WANTING TO GET IN A W/C AND GO OUTSIDE WITH . ATTEMPT TO GET INTO W/C BUT THEN DECIDED NOT TO BECAUSEAOF THE PAIN. SET BACK DOWN ON BED SR UP X2 CALL LIGHT WITHIN REACH. REPOSITIONED IN HIS BED.
--- NOTE | 2017-04-21 21:00 | NUR ---
MEDS GIVEN PER MAR.
--- NOTE | 2017-04-22 | NUR ---
EYES CLOSED RESPIRATIONS WITH EASE AND UNLABORED.
--- NOTE | 2017-04-22 00:57 | NUR ---
C/O LEFT HIP INCISION. PERCOCET TAB ONE PO GIVEN FOR PAIN CONTROL.
--- NOTE | 2017-04-22 03:23 | NUR ---
RESTING AT THIS TIME VOIDS WELL IN URINAL IV IS SALINE LOCKED.
[2017-04-22 03:38] VITALS: BP 122/74
[2017-04-22 04:17] LABS: HEMATOCRIT 28.7 % (42.0-54.0); MCH 28.1 pg (26.0-34.0); MCHC 34.8 g/dL (31.0-37.0); MCV 80.6 fL (80.0-100.0); MEAN PLATELET VOLUME 8.5 fL (7.4-10.4); RBC 3.56 10x6/uL (4.20-6.10); RDW 13.6 % (11.5-14.5); WBC 10.6 10x3/uL (4.8-10.8)
--- NOTE | 2017-04-22 07:50 | NUR ---
ASSESSMENT PER FLOW SHEET.PT WITHOUT DISTRESS.DRESSING LEFT HIP INATCT WITH SOME DRAINAGE REDISH/BROWN NOTED.PT DENIES NEEDS,BUT WANTS PAIN MEDS WHEN TIME.MONITOR FOR NEEDS.
[2017-04-22 08:22] VITALS: BP 139/65
[2017-04-22 12:02] VITALS: BP 116/74
--- NOTE | 2017-04-22 15:45 | NUR ---
ASSISTED UP TO WHEELCHAIR AND TOOK HIM OUTSIDE.
--- NOTE | 2017-04-22 16:06 | NUR ---
Rehab Note- Faxed clinicals to [facility] for review for possible acute rehab stay. The patient was denied. A peer to peer can be set up within the 5 calendar day period from receiving a denial letter- awaiting denial leeter to be faxed at this time. Thank you for this referral! Meghan Lopez RN Clinical Liaison, [facility] Rehab
[2017-04-22 16:26] VITALS: BP 116/56
--- NOTE | 2017-04-22 16:46 | NUR ---
RECEIVED A PHONE CALL FROM NITHYA ([phone]) EXT: [phone] @ [facility] STATING THAT THE PATIENT WAS DENIED FOR IN PATIENT REHAB AT THIS TIME. DENIAL # [id number]. I CALLED PORTER BARKER APN AND SET UP A PEER TO PEER WITH A DR ALLAN ([phone]). PORTER BARKER STATED THAT SHE WOULD CALL. CM WILL CONTINUE TO ASSIST.
--- NOTE | 2017-04-22 18:56 | NUR ---
IV LEFT FOREARM HAS SOME SWELLING AND TENDERNESS.IV DCD WITH CATH INTACT. IV RESITED TO RIGHT FOREARM X1 STICK USING ASEPTIC TECH.TOLERATED WELL.
[2017-04-22 20:00] VITALS: BP 130/64
--- NOTE | 2017-04-22 20:00 | NUR ---
ASSESSMENT PER FLOWSHEET. IV SALINE LOCKED RT FOREARM . DRESSING TO LEFT HIP C/D/I.
--- NOTE | 2017-04-22 21:00 | NUR ---
MEDS GIVEN PER NOV. QWUQ=046. 6 UNITS INSULIN GIVEN
[2017-04-23] VITALS: BP 140/72
--- NOTE | 2017-04-23 | NUR ---
RESTING QUIETLY DENIES NEEDS.
--- NOTE | 2017-04-23 02:30 | NUR ---
EYES CLOSED RESPIRATIONS WITH EASE AND UNLABORED. VOIDS WELL IN URINAL.
[2017-04-23 04:00] VITALS: BP 133/66
--- NOTE | 2017-04-23 06:00 | NUR ---
GTGB=306. 2 UNITS INSULIN GIVEN PER S/S.
--- NOTE | 2017-04-23 07:25 | NUR ---
ASSESSMENT PER FLOW SHEET.PT WITHOUT DISTRESS.DRESSING LEFT HIP INTACT WITH MINIMAL DRAINAGE NOTED TO INSIDE OF DRESSING.DENIES NEEDS.CALL LIGHT IN REACH
[2017-04-23 07:55] VITALS: BP 127/59
[2017-04-23 12:00] VITALS: BP 109/55
[2017-04-23] MEDS ORDERED: ELIQUIS2.5 MG PO (15:04)
[2017-04-23] MEDS ORDERED: PERCOCET 10/3251 TA1 PO (15:05)
[2017-04-23] MEDS ORDERED: OXYCONTIN10 MG PO (15:05)
[2017-04-23] MEDS ORDERED: MIRALAX17 GM PO (15:06)
[2017-04-23] MEDS ORDERED: COLACE100 MG PO (15:06)
--- NOTE | 2017-04-23 15:09 | NUR ---
RECEIVED A PHONE CALL FROM [facility] STATING THAT THEY HAVE OVER TURNED THE PREVIOUS DENIAL FOR INPATIENT REHAB, SHE SPOKE WITH DR ALLAN. THEY APPROVED THE PATIENT TO GO TO OUR INPATIENT REHAB. YAMILKA NOTIFED AND PATIENT NOTIFED AND WAS VERY HAPPY.
[2017-04-23] MEDS ORDERED: LEVAQUIN750 MG PO (15:20)
[2017-04-23 15:53] VITALS: BP 112/65
--- NOTE | 2017-04-23 15:56 | NUR ---
RECEIVED AUTH # [id number] FOR INPATIENT REHAB [employer] ASKED TO SEND UPDATE ON Apr TO [facility] @ [phone]
--- NOTE | 2017-04-23 17:32 | NUR ---
REPORT TO REHAB,SPOKE WITH MAILE
--- NOTE | 2017-04-23 17:39 | NUR ---
OT NOTE: PT COMPLETED BED MOB WITH MIN A. PT COMPLETED ADLS WITH CGA. THANK YOU, RAJEEV LESLIE/Jong
[2017-04-23] MEDS ORDERED: FLORAJEN3 CAPS460 MG PO (20:06)
[2017-04-23] MEDS ORDERED: HUMALOG 30100 UNITS/ SC (20:09)
[2017-04-23] MEDS ORDERED: BENADRYL25 MG PO (20:10)
[2017-04-23] MEDS ORDERED: ACETAMINOPHEN325 MG PO (20:11)
== END 2017-04-23 18:30 | DRG 464 ==
LOC: D.MS 04-14 08:45 → D.SDCHOLD 04-14 08:45 → D.MS 04-14 20:47
PROVIDERS: Anesthesiology; Student in an Organized Health Care Education/Training Program; ADMIT Orthopaedic Surgery
PROC: 0SHB08Z Insertion of Spacer into Left Hip Joint, Open Approach (ICD-10-PCS; 2017-04-14)
PROC: 0SPB0JZ Removal of Synthetic Substitute from Left Hip Joint, Open Approach (ICD-10-PCS; principal; 2017-04-14 11:15)
DX: T84.52XA Infection and inflammatory reaction due to internal left hip prosthesis, initial encounter (principal); D62 Acute posthemorrhagic anemia; E11.40 Type 2 diabetes mellitus with diabetic neuropathy, unspecified; Z79.4 Long term (current) use of insulin; M19.90 Unspecified osteoarthritis, unspecified site; E78.5 Hyperlipidemia, unspecified; B19.20 Unspecified viral hepatitis C without hepatic coma; I10 Essential (primary) hypertension; F17.200 Nicotine dependence, unspecified, uncomplicated; E03.9 Hypothyroidism, unspecified; R12 Heartburn

== ENCOUNTER 2017-04-23 19:32 | Inpatient (IN) | payer MEDICARE ==
[~2017-04-23] VITALS: Ht 185.4 cm; Wt 138.3 kg
--- NOTE | ~2017-04-23 | RHP ---
PATIENT: ROSEMARY KEY MEDICAL RECORD: [id number] ACCOUNT: [id number] LOCATION:[facility] [id number] : 55 ADMISSION DATE: 04/23/17 REHABILITATION HISTORY AND PHYSICAL EXAMINATION POST ADMISSION PHYSICIAN EXAMINATION HISTORY OF PRESENT ILLNESS: A 61-year-old black male who has presently been admitted to the rehab unit for strengthening and conditioning. The patient is status post infected left hip, status post total hip arthroplasty. He had the hip spacer placed and removed. 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 His present culture shows only Enterobacter that is sensitive to Levaquin. He is presently on a 6-week course following his surgery. The patient has a comorbidity osteomyelitis that occurred in October of earlier this year that required amputation and antibiotics due to multi-bacterial infection and also MRSA. The patient has had loosening of the hardware for Cipro for 3 years, increasing pain and had decreased debility for being able to be active and going. The patient was told he had purulence that was visible at that aspect there and the patient does live at home with his . We will need to have assistance with ADLs and strengthening fullness as well as wound care, occupational, physical and infectious disease therapy to be followed on this. The patient will need a case management social worker to assist on this aspect and further involvement. PAST MEDICAL HISTORY: Significant for status post osteoarthritis and hip infection with antibiotic spacer placement. The patient is also status post prosthetic of the left hip joint. Other past medical history includes diabetes, diabetic neuropathy, chronic hepatitis C, hypertension, hypothyroidism, osteoarthritis, hyperlipidemia, depression and diabetes mellitus. The patient does have some risk of fall, shortness breath, hyperglycemia and hypoglycemia. The patient surgically has had gallbladder surgery, left hip surgery, bilateral shoulder surgery. The patient also has multiple joint pains that are present. MEDICATIONS: As listed in the MAR sheet. ALLERGIES: MORPHINE, CODEINE AND ADHESIVE TAPE. SOCIAL HISTORY: The patient does smoke. Does not drink alcohol at the present time. REVIEW OF SYSTEMS: Indicates no fever or chills. He does have wound care that has been present, some generalized muscle aches have been present and some balance difficulties. PHYSICAL EXAMINATION: VITAL SIGNS: At the time of history and physical as below. GENERAL: He is a well-developed, well-nourished, obese 61-year-old black male, in no acute distress. HEENT: Pupils equal, reactive to light. Extraocular movements are intact. Oral cavity and oropharynx otherwise clear. NECK: No cervical or pharyngeal adenopathy. No nuchal rigidity. LUNGS: Clear to auscultation bilaterally. HEART: Regular rate and rhythm with a I/ systolic ejection murmur. ABDOMEN: Obese, soft, nontender, positive bowel sounds. No hepatosplenomegaly or masses. HISTORY AND PHYSICAL [id number] ROSEMARY KEY NEUROLOGIC: He is able to move all 4 extremities and tracked appropriately. MUSCULOSKELETAL: Shows well-developed, well-nourished, obese black male. He is nonambulatory at the present time, just from waking up. He does have a clean bandage on his left hip, has got some hypertrophic areas on his knees and elbows bilaterally. He has good insurance account representative strength and sensation is intact. ASSESSMENT AND PLAN: Status post left hip surgery for removal of arthroplasty. The patient was admitted to the rehab unit for physical therapy to improve gait and transfer skills, increased mobility, given the occupational therapy to be able to help him with his ADLs including independent living with his . Case management will be assist with medication, discharge planning and placement nutrition. We will follow his nutritional needs, especially with being diabetic. Rehab nursing to assist in monitoring the patient's underlying medical conditions including constipation, bowel habits, pain management and his Accu-Cheks. The patient continues the present current medications. Fall precautions will be followed. Wound management will be obtained. We will finish his 6-week course of Levaquin and the patient will be involved with the staff meeting each week and approximately look stable be anywhere between 7-14 days. TRANSINT:[id number] Voice Confirmation ID: [id number] DOCUMENT ID: [id number] SUE notes whether there has been none or any medical/functional change since admission: - No change since prescreen. SUE attests patient continues to be appropriate for IRF: - Continues to be appropriate. MIKE HUMPHRIES MD CC: [id number] DICTATION DATE: 04/24/17 1529 SURVEY RESEARCH MANAGER: 04/24/17 1646 ADM IN [facility] [address] [place] [address]
--- NOTE | 2017-04-23 19:15 | NUR ---
IN BED, AWAKE. VISITORS AT BEDSIDE. DENIES CURRENT NEEDS.
[~2017-04-23 19:32] MED LIST changes: +ELIQUIS2.5 MG PO; +LEVAQUIN750 MG PO; +MIRALAX17 GM PO; +OXYCONTIN10 MG PO
[2017-04-23] MEDS ORDERED: FLORAJEN3 CAPS460 MG PO (20:06)
[2017-04-23] MEDS ORDERED: HUMALOG 30100 UNITS/ SC (20:09)
[2017-04-23] MEDS ORDERED: BENADRYL25 MG PO (20:10)
[2017-04-23] MEDS ORDERED: ACETAMINOPHEN325 MG PO (20:11)
--- NOTE | 2017-04-23 20:20 | NUR ---
PATIENT AWAKE BUT DROWSY. FAMILY MEMBERS DEPARTING.
[2017-04-23 21:30] VITALS: BP 105/55
--- NOTE | 2017-04-23 21:30 | NUR ---
C/O PAIN LEVEL OF 10/10 IN LEFT HIP. GAVE PATIENT HIS SCHEDULED HS MEDS EXCEPT BENADRYL FOR SLEEP AND URICIT (CURRENTLY NOT IN PYXIS--CALLED PHARMACY). ALSO GAVE PATIENT PERCOCET 10325 X2 TABS PO FOR HIS HIP PAIN. TOLD HIM I WILL RETURN FOR ADMISSION ASSESSMENT AND THE REMAINDER OF HIS MEDS AFTER PASSING MEDS TO MY REMAINING PATIENTS. SAYS HE UNDERSTANDS.
--- NOTE | 2017-04-23 23:51 | NUR ---
FSBS WAS 166. GAVE PATIENT 2 UNITS HUMALOG S/S INSULIN SC IN LUQ ABDOMEN. ALSO GAVE LANTUS INSULIN 40 UNITS SC BY SEPARATE INJECTION IN LUQ ABDOMEN. ADMISSION ASSESSMENT COMPLETE. FORMS SIGNED. CONTINUING WITH ADMISSION HISTORY.
--- NOTE | 2017-04-24 00:05 | NUR ---
ADMISSION HISTORY COMPLETE. HAD EARLIER TURNED PATIENT TO RIGHT SIDE PER HIS REQUEST, BUT HE STATES HE CANNOT TOLERATE THAT POSITION DUE TO PAIN IN HIS LEFT. A RESULT HE RETURNED HIMSELF TO HIS BACK WHERE HE IS MORE COMFORTABLE. PATIENT IS NORMALLY A SIDE SLEEPER AND STAYING ON HIS BACK IS NOT COMPLETELY COMFORTABLE NO MATTER THE HOB AND FOB ANGLES. OBTAINED AN NORDER FROM DR. PEGUERO WHILE ASSESSING THE PATIENT AT 2320 WHILE WAS HERE ON UNIT TO INCREASE PERCOCET TO 1-2 TABS BASED ON PAIN SCALE (1-5, 6-10). WILL IMPLEMENT NEW ORDER STARTING WHEN PERCOCET CAN NEXT BE GIVEN (0130).
--- NOTE | 2017-04-24 02:25 | NUR ---
PATIENT AWAKE. DENIES PAIN. SAYS HE HAS FINALLY FOUND A COMFORTABLE POSITION WITH HEAD AND LEGS ELEVATED AT THE CORRECT ANGLES.
--- NOTE | 2017-04-24 03:40 | NUR ---
C/O PAIN LEVEL OF 9/10 IN LEFT HIP AND THIGH. GVAE HIM PERCOCET X2 TABS PO PER NEW ORDER OF DR. PEGUERO.
[2017-04-24 05:43] LABS: BASOPHILS 0.3 % (0-2); EOSINOPHILS 6.7 % (0-7); HEMATOCRIT 29.1 % (42.0-54.0); HEMOGLOBIN 10.1 g/dL (13.5-17.5); IMMATURE GRANULOCYTES 1.3 % (0-5); LYMPHOCYTES 33.7 % (15-50); MCH 28.1 pg (26.0-34.0); MCHC 34.7 g/dL (31.0-37.0); MCV 80.8 fL (80.0-100.0); MEAN PLATELET VOLUME 8.6 fL (7.4-10.4); MONOCYTES 7.7 % (2-11); NEUTROPHILS 50.3 % (40-80); PLATELET COUNT 355 10x3/uL (130-400); RDW 13.7 % (11.5-14.5); WBC 11.4 10x3/uL (4.8-10.8)
[2017-04-24 05:51] LABS: ANION GAP 10.5 mmol/L (8-16); C-REACTIVE PROTEIN 4.6 mg/dL (0.0-0.9); CALCIUM 8.7 mg/dL (8.5-10.1); CARBON DIOXIDE 31.1 mmol/L (21.0-32.0); CREATININE - SERUM 1.2 mg/dL (0.6-1.3); POTASSIUM - SERUM 4.6 mmol/L (3.5-5.1)
--- NOTE | 2017-04-24 06:05 | NUR ---
GAVE PATIENT SCHEDULED PO MEDS. BLOOD SUGAR PER [facility] IS 141.
[2017-04-24 07:01] LABS: ERYTHROCYTE SEDIMENTATION RATE 78 mm/hr (0-20)
--- NOTE | 2017-04-24 07:50 | NUR ---
SITTING UP IN BED READING NEWSPAPER. ALERT AND ORIENTED X4 WITH PLEASANT AFFECT. C/O PAIN 9/10 IN LEFT HIP AND THIGH, THROBBING. ADMINISTERED 2 PERCOCET PER ORDER. OFFERS NO OTHER COMPLAINTS AT THIS TIME. WILL CONTINUE TO MONITOR
--- NOTE | 2017-04-24 08:00 | NUR ---
SITTING UP IN BED EATING BREAKFAST.CL IN REACH.
--- NOTE | 2017-04-24 09:30 | NUR ---
CHANGED DRESSING TO LEFT HIP DUE TO EXCESSIVE DRAINAGE AND DRESSING COMING OFF. CLEANED AREA WITH WOUND CARE CLEANSER AND PAT DRY WITH 4X4 GAUZE. APPLIED MEPILEX BORDER AG DRESSING TO SITE. INITAL AND DATED DRESSING. PT OFFERS NO COMPLAINTS OR EXPRESSES ANY DISCOMFORT. CALL LIGHT IN REACH. WILL CONTINUE TO MONITOR
[2017-04-24 09:44] VITALS: BP 123/64
--- NOTE | 2017-04-24 11:00 | NUR ---
IN GYM WITH PHYSICAL THERAPIST DELMY
[2017-04-24 11:09] VITALS: Ht 185.4 cm; Wt 138.3 kg
--- NOTE | 2017-04-24 13:38 | NUR ---
C/O PAIN IN LEFT HIP AND THIGH 9/10 THROBBING. ADMINISTERED PERCOCET 10MG X2 PER PT REQUEST. NO OTHER COMPLAINTS VOICED AT THIS TIME. CALL LIGHT IN REACH.
--- NOTE | 2017-04-24 14:29 | NUR ---
LYING IN BED EYES CLOSED RESTING. EASILY AROUSED WITH STIMULI. CALL LIGHT IN REACH. WILL CONTINUE TO MONITOR
--- NOTE | 2017-04-24 16:04 | NUR ---
FAXED LAB RESULTS TO DR. KHAN'S OFFICE [phone]
--- NOTE | 2017-04-24 18:06 | NUR ---
IN SHOWER OCCUPATIONAL THERAPIST IN ROOM WITH PT PERFORMING INITIAL EVAL. PT OFFERS NO COMPLAINTS.
[2017-04-24 19:49] VITALS: BP 110/52
--- NOTE | 2017-04-24 19:49 | NUR ---
PT RECEIVED SITTING UP IN BED AAOX3 WATCHING TV AT THIS TIME. REQUESTS MEDICATION FOR PAIN PT RATES 05/01. ADMINISTERED PERCOCET PO PER ORDERS FOR PAIN. ASSESSMENT COMPLETED PER FLOW SHEET AT THIS TIME. PT DENIES OTHER NEEDS. BED LOW. PHONE AND CALL LIGHT IN REACH. SRX2.
--- NOTE | 2017-04-24 21:54 | NUR ---
PM MEDS GIVEN AT THIS TIME. PT DENIES OTHER NEEDS. BED LOW. PHONE AND CALL LIGHT IN REACH. SRX2.
--- NOTE | 2017-04-24 22:23 | NUR ---
PT RESTING QUIETLY AT THIS TIME WATCHING TV. DENIES NEEDS. BED LOW. PHONE AND CALL LIGHT IN REACH. SRX2.
--- NOTE | 2017-04-25 00:10 | NUR ---
PT BASS SINGER LIGHT. REQUESTS DENTURES BE RINSED AT THIS TIME. DENIES OTHER NEEDS. BED LOW. PHONE AND CALL LIGHT IN REACH. SRX2.
--- NOTE | 2017-04-25 02:03 | NUR ---
PT SITTING UP ON SIDE OF BED AT THIS TIME. DENIES NEEDS. BED LOW. PHONE AND CALL LIGHT IN REACH. SRX2.
--- NOTE | 2017-04-25 04:11 | NUR ---
PT AWAKE RESTING QUIETLY IN BED AT THIS TIME. REQUESTS COFFEE. DENIES OTHER NEEDS. BED LOW. PHONE AND CALL LIGHT IN REACH. SRX2.
--- NOTE | 2017-04-25 05:12 | NUR ---
PT RESTING QUIETLY AT THIS TIME WITH EYES CLOSED. RESPIRATIONS EVEN, NON-LABORED. NO ACUTE DISTRESS NOTED AT THIS TIME. BED LOW. PHONE AND CALL LIGHT IN REACH. SRX2.
--- NOTE | 2017-04-25 05:48 | NUR ---
PT SITTING UP ON SIDE OF BED DRINKING COFFEE AT THIS TIME. DENIES NEEDS. BED LOW. PHONE AND CALL LIGHT IN REACH. SRX2.
--- NOTE | 2017-04-25 07:34 | NUR ---
RESTING QUIETLY IN BED. NO S/S DISTRESS. CALL LIGHT IN REACH
[2017-04-25 07:45] VITALS: BP 116/62
--- NOTE | 2017-04-25 11:50 | NUR ---
cymbalta 30mg late due to waiting on pharmacy to bring down advised Ayan at 10am that slot was empty, Ayan advised he filled. Cymbalta was not filled but pocket would open called and advised Ayan of situation and Ayan advised he would fix problem.
--- NOTE | 2017-04-25 16:00 | NUR ---
PORTER HEDRICK FOR DR. KELLEY CAME BY AND GAVE VERBAL ORDER FOR STAPLE REMOVAL ON Friday04/28/17 LONG THERE WAS NOT EXCESSIVE DRAINAGE OR SWELLING IN INCISIONAL AREA. IF ANY CONCERNS OR QUESTIONS ON INCISION TO LEFT HIP CALL DR. KELLEY OR PORTER HEDRICK. PORTER ALSO ADVISED THAT THE BULKY DRESSING WAS OK AND WE DID NOT HAVE TO PUT THE MEPILEX AG DRESSING BACK ON.
--- NOTE | 2017-04-25 16:16 | NUR ---
SITTING UP IN W/C RESTING. DENIES ANY NEEDS. CALL LIGHT IN REACH. WILL CONTINUE TO MONITOR
--- NOTE | 2017-04-25 17:23 | NUR ---
SITTING UP IN BED EATING DINNER AND WATCHING TV. NO S/SX OF DISTRESS. CALL LIGHT IN REACH. WILL CONTINUE TO MONITOR
[2017-04-25 19:30] VITALS: BP 128/57
--- NOTE | 2017-04-25 19:30 | NUR ---
ASSESSMENT PER FLOW SHEET, VS OBTAINED, DRESSING ON LEFT HIP AND UPPER LEG INTACT WITH NO DRAINAGE NOTED, PT REPORTS FLATUS, NO BM, AND USING URINAL WITH NO DIFFICULTY, PT C/O HIP AND LEG PAIN, WILL ADM PAIN MED IF DUE, PT UP TO WC WITH ASSISTANCE, PT REQUESTS TO SIT IN WC AT THIS TIME, REQUESTED AND SERVED FRESH H20, DENIES FURTHER NEEDS
--- NOTE | 2017-04-25 20:00 | NUR ---
PT OFF UNIT VIA WC WITH SPOUSE
--- NOTE | 2017-04-25 21:08 | NUR ---
ADM 2100 MEDS PO PER MD ORDERS, SEE RADHIKA BLOOD, INFORMED PT THAT I WILL BE BACK IN A FEW MINUTES TO ADM INSULIN, PT VERBALIZES UNDERSTANDING, SPOUSE AT BEDSIDE
--- NOTE | 2017-04-25 21:16 | NUR ---
THIS RN AND DISHA VÁSQUEZ, RN TO ROOM FOR VERIFICATION AND ADMINISTRATION OF INSULIN, PT VAL WELL, REFUSES SNACK, PT STATES "DON'T WORRY, I DON'T SLEEP WELL AT NIGHT, SO I WILL BE SNACKING ON WHAT I HAVE HERE", PT DENIES NEEDS, SPOUSE AT BEDSIDE, BED IN LOW POSITION, SIDE RAILS X 2, CALL LIGHT IN REACH
--- NOTE | 2017-04-25 22:15 | NUR ---
PT RESTING WITH EYES CLOSED, RESP QUIET, NO DISTRESS NOTED, LEFT UNDISTURBED AT THIS TIME
--- NOTE | 2017-04-26 00:20 | NUR ---
PT RESTING WITH EYES CLOSED, RESP QUIET, NO DISTRESS NOTED, LEFT UNDISTURBED AT THIS TIME, BED IN LOW POSITION, SIDE RAILS X 2, CALL LIGHT IN REACH
--- NOTE | 2017-04-26 01:45 | NUR ---
PT LEARNING SUPPORT TEACHER LIGHT, EMPTIED 650 MLS OF DARK YELLOW URINE FROM PREVIOUS VOID, PT THEN VOIDED 625 MLS OF DARK YELLOW URINE, PT C/O LEFT HIP/LEG PAIN, ADM PERCOCET PO PER MD ORDERS, SEE EMAR, PT DENIES FURTHER NEEDS
--- NOTE | 2017-04-26 02:35 | NUR ---
PT RESTING WITH EYES CLOSED, RESP QUIET, NO DISTRESS NOTED, LEFT UNDISTURBED AT THIS TIME
--- NOTE | 2017-04-26 04:07 | NUR ---
PT AWAKE, DRESSING NOTED TO BE A LITTLE LOOSE, SECURED WITH TAPE, PT DENIES NEEDS OR PAIN AT THIS TIME, BED IN LOW POSITION, SIDE RAILS X 2, CALL LIGHT IN REACH
--- NOTE | 2017-04-26 06:33 | NUR ---
PT RESTING WITH EYES CLOSED, AROUSES TO SOFT VERBAL STIMULATION, FSBS, ADM 0600 MEDS PER MD ORDERS, SEE EMAR, EMPTIED URINAL, PT C/O LEFT HIP AND LEG PAIN, ADM PAIN MED PER MD ORDERS, SEE EMAR, FRESH COFFEE SERVED, DENIES FURTHER NEEDS, BED IN LOW POSITION, SIDE RAILS X 2, CALL LIGHT IN REACH
--- NOTE | 2017-04-26 06:44 | NUR ---
SHIFT REPORT TO DAY SHIFT
--- NOTE | 2017-04-26 07:40 | NUR ---
SITTING UP ON SIDE OF BED DRINKING COFFEE. OFFERS NO COMPLAINTS. CALL LIGHT IN REACH. WILL CONTINUE TO MONITOR.
[2017-04-26 08:00] VITALS: BP 103/63
--- NOTE | 2017-04-26 11:30 | NUR ---
OFF FLOOR OUTSIDE WITH .
--- NOTE | 2017-04-26 12:15 | NUR ---
BACK ON FLOOR ACCOMPAINED BY FROM OUTSIDE.
--- NOTE | 2017-04-26 15:00 | NUR ---
SITTING UP IN WC VISITING WITH FAMILY. OFFERS NO COMPLAINTS. CALL LIGHT IN REACH
--- NOTE | 2017-04-26 18:18 | NUR ---
RESTING QUIETLY IN BED. NO S/S DISTRESS. CALL LIGHT IN REACH.
--- NOTE | 2017-04-26 22:45 | NUR ---
assisted pt with tv remote which wasn't working to turn off the tv. pt conversive, respirations regular and unlabored, no s/s of acute distress.
--- NOTE | 2017-04-26 23:44 | NUR ---
SIT UP IN BED AND WATCH TV.
[2017-04-27 01:56] VITALS: BP 116/70
--- NOTE | 2017-04-27 06:57 | NUR ---
RESTING QUIETLY IN BED. NO S/S DISTRESS. CALL LIGHT IN REACH
--- NOTE | 2017-04-27 07:40 | NUR ---
SITTING UP ON SIDE OF BED. OFFERS NO COMPLAINTS. CALL LIGHT IN REACH. WILL CONTINUE TO MONITOR
[2017-04-27 08:00] VITALS: BP 144/77
--- NOTE | 2017-04-27 12:00 | NUR ---
SITTING UP IN WC VISITING WITH . OFFERS NO COMPLAINTS. CALL LIGHT IN REACH. WILL CONTINUE TO MONITOR
--- NOTE | 2017-04-27 17:45 | NUR ---
OFF FLOOR WITH OUTSIDE IN FRONT TO GET FRESH AIR.
--- NOTE | 2017-04-27 18:20 | NUR ---
PT AND BACK ON FLOOR FROM OUTSIDE
--- NOTE | 2017-04-27 19:00 | NUR ---
IN BED, AWAKE. DENIES NEEDS.
--- NOTE | 2017-04-27 19:45 | NUR ---
REST IN BED AND WATCH TV.
[2017-04-27 23:10] VITALS: BP 124/69
--- NOTE | 2017-04-28 00:34 | NUR ---
REST IN BED, EYE CLOSE, CALL LIGHT WITHIN REACH.
[2017-04-28 05:32] LABS: BASOPHILS 0.3 % (0-2); EOSINOPHILS 7.3 % (0-7); HEMATOCRIT 28.1 % (42.0-54.0); HEMOGLOBIN 9.8 g/dL (13.5-17.5); IMMATURE GRANULOCYTES 0.9 % (0-5); LYMPHOCYTES 31.7 % (15-50); MCH 28.1 pg (26.0-34.0); MCHC 34.9 g/dL (31.0-37.0); MCV 80.5 fL (80.0-100.0); MEAN PLATELET VOLUME 8.8 fL (7.4-10.4); MONOCYTES 7.7 % (2-11); NEUTROPHILS 52.1 % (40-80); PLATELET COUNT 355 10x3/uL (130-400); RBC 3.49 10x6/uL (4.20-6.10); RDW 13.9 % (11.5-14.5); WBC 8.6 10x3/uL (4.8-10.8)
[2017-04-28 05:48] LABS: ANION GAP 11.2 mmol/L (8-16); CALCIUM 8.4 mg/dL (8.5-10.1); CARBON DIOXIDE 29.3 mmol/L (21.0-32.0); CREATININE - SERUM 1.1 mg/dL (0.6-1.3); POTASSIUM - SERUM 4.5 mmol/L (3.5-5.1)
--- NOTE | 2017-04-28 07:16 | NUR ---
RESTING QUIETLY IN BED. NO S/S DISTRESS. CALL LIGHT IN REACH
[2017-04-28 08:44] VITALS: BP 121/76
--- NOTE | 2017-04-28 09:40 | NUR ---
PT AM MEDS ADMINISTERED. PT DENIES NEEDS. WCTM.
--- NOTE | 2017-04-28 11:04 | NUR ---
PT IN THERAPY, TOLERATING WELL. WCTM.
--- NOTE | 2017-04-28 15:09 | NUR ---
PT IN THERAPY, DENIES NEEDS. WCTM.
--- NOTE | 2017-04-29 00:24 | NUR ---
IN ROOM TALK TO PT.
--- NOTE | 2017-04-29 00:40 | NUR ---
IN BED, RESTING QUIETLY.
[2017-04-29 01:23] VITALS: BP 134/62
--- NOTE | 2017-04-29 03:01 | NUR ---
REST IN BED, EYE CLOSE, CALL LIGHT WITHIN REACH.
[2017-04-29 08:00] VITALS: BP 108/62
--- NOTE | 2017-04-29 09:00 | NUR ---
PT AM MEDS ADMINISTERED. PT DENIES NEEDS. WCTM.
--- NOTE | 2017-04-29 13:35 | NUR ---
PT REQ AND REC'D PRN PAIN MEDICATION. WCTM.
--- NOTE | 2017-04-29 15:27 | NUR ---
NUTRITION MONITORING & EVAL CHART REVIEWED. PT WITH GOOD PO INTAKE ADA DIET. RECENT BM RECORDED. WILL CONTINUE TO PROVIDE DIET, MONITOR PO INTAKE. RD FOLLOWING
--- NOTE | 2017-04-29 16:30 | NUR ---
PT FSBS 168. PT GIVEN 2 UNITS SS INSULIN. WCTM.
[2017-04-29 19:30] VITALS: BP 101/56
--- NOTE | 2017-04-29 19:45 | NUR ---
IN BED, HOB UP 45 DEGREES. C/O PAIN LEVEL OF 8/10 IN LEFT HIP, AND RIGHT SHOULDER (SORENESS DUE TO USE OF R/W). GAVE HIM PERCOCET 10 X2 TABS PO.
--- NOTE | 2017-04-29 21:25 | NUR ---
ASSESSMENT AND HS MEDS COMPLETE. DENIES NEEDS. EMPTIED 500ML FROM BEDSIDE URINAL. FSBS 162. GAVE PATIENT 2 UNITS HUMALOG S/S INSULIN SC IN LEFT UPPER ARM. GAVE SCHEDULED LANTUS 40 UNITS SC IN LUQ ABDOMEN. DENIES PAIN OR OTHER DISTRESS.
--- NOTE | 2017-04-29 22:15 | NUR ---
IN BED AWAKE. DENIES NEEDS.
--- NOTE | 2017-04-30 00:25 | NUR ---
IN BED, EYES CLOSED. RESTING QUIETLY. EMPTIED 425ML FROM HIS BEDSIDE URINAL.
--- NOTE | 2017-04-30 02:00 | NUR ---
PATIENT AWAKE. GAVE HIM FRESH BOTTLE OF WATER. EMPTIED 450 ML FROM HIS BEDSIDE URINAL.
--- NOTE | 2017-04-30 04:45 | NUR ---
IN BED, SNORING SOFTLY. EMPTIED 650 ML FROM BEDSIDE URINAL.
[2017-04-30 05:56] LABS: BASOPHILS 0.2 % (0-2); EOSINOPHILS 8.2 % (0-7); HEMATOCRIT 28.7 % (42.0-54.0); IMMATURE GRANULOCYTES 0.8 % (0-5); LYMPHOCYTES 36.2 % (15-50); MCHC 34.8 g/dL (31.0-37.0); MCV 80.4 fL (80.0-100.0); MEAN PLATELET VOLUME 8.7 fL (7.4-10.4); MONOCYTES 8.6 % (2-11); PLATELET COUNT 335 10x3/uL (130-400); RBC 3.57 10x6/uL (4.20-6.10); RDW 13.8 % (11.5-14.5); WBC 8.4 10x3/uL (4.8-10.8)
[2017-04-30 06:14] LABS: ANION GAP 10.2 mmol/L (8-16); CALCIUM 8.5 mg/dL (8.5-10.1); CREATININE - SERUM 1.2 mg/dL (0.6-1.3); POTASSIUM - SERUM 4.2 mmol/L (3.5-5.1)
--- NOTE | 2017-04-30 06:30 | NUR ---
BLOOD SUGAR PER LAB BMP IS 116. GAVE PATIENT SCHEDULED MEDS WELL PERCOCET 10/325 X2 TABS PO FOR PAIN LEVEL OF 8/10 IN LEFT HIP AND THIGH.
--- NOTE | 2017-04-30 07:55 | NUR ---
PT UP EATING BREAKFAST, DENIES NEEDS. WCTM.
[2017-04-30 08:13] VITALS: BP 110/62
--- NOTE | 2017-04-30 09:21 | NUR ---
PT AM MEDS ADMINISTERED. PT RESTING IN BED AND DENIES NEEDS. WCTM.
--- NOTE | 2017-04-30 18:00 | NUR ---
PT GEO DC'D. PRN PAIN MED GIVEN PRIOR TO REQUESTED BY PT. PT TOLERATED WELL. STERI STRIPS APPLIED. WCTM.
--- NOTE | 2017-04-30 19:00 | NUR ---
PATIENT IN BED, AWAKE. DENIES CURRENT NEEDS.
[2017-04-30 21:15] VITALS: BP 113/62
--- NOTE | 2017-04-30 21:15 | NUR ---
ASSESSMENT AND HS MEDS COMPLETE. GAVE PATIENT ORAL MEDS. WILL RETURN TO TAKE FSBS WHEN GLUCOMETER IS AVAILABLE. ADVISED PATIENT OF SAME.
--- NOTE | 2017-04-30 22:35 | NUR ---
FSBS 176. GAVE PATIENT 2 UNITS SLIDING SCALE HUMALOG INSULIN SC IN LEFT UPPER ARM. GAVE HIM SCHEDULED DOSE OF LANTUS 40 UNITS SC IN LUQ ABDOMEN.
--- NOTE | 2017-05-01 00:05 | NUR ---
RESTING QUIETLY IN BED, EYES CLOSED, HOB UP 45 DEGREES. APPEARS COMFORTABLE.
--- NOTE | 2017-05-01 02:00 | NUR ---
RESTING QUIETLY, EYES CLOSED. HOB NOW UP ONLY 10 DEGREES. NO DISTRESS EVIDENT.
--- NOTE | 2017-05-01 04:50 | NUR ---
C/O PAIN LEVEL OF 8/10 IN LEFT LEG. GAVE PATIENT PERCOCET 10/325 X2 TABS PO ALONG WITH PROTONIX 40MG PO. WILL AWAIT RESULTS OF BMP GLUCOSE LEVEL BEFORE GIVEING INVOKANA, AND SLIDING SCALE INSULIN IF INDICATED.
[2017-05-01 05:00] LABS: BASOPHILS 0.4 % (0-2); EOSINOPHILS 9.5 % (0-7); IMMATURE GRANULOCYTES 0.6 % (0-5); LYMPHOCYTES 34.6 % (15-50); MCH 27.9 pg (26.0-34.0); MCHC 34.5 g/dL (31.0-37.0); MEAN PLATELET VOLUME 8.6 fL (7.4-10.4); NEUTROPHILS 46.9 % (40-80); PLATELET COUNT 328 10x3/uL (130-400); RBC 3.58 10x6/uL (4.20-6.10); RDW 13.9 % (11.5-14.5)
[2017-05-01 05:12] LABS: ANION GAP 9.2 mmol/L (8-16); C-REACTIVE PROTEIN 2.4 mg/dL (0.0-0.9); CALCIUM 8.3 mg/dL (8.5-10.1); CARBON DIOXIDE 30.9 mmol/L (21.0-32.0); CREATININE - SERUM 1.1 mg/dL (0.6-1.3); POTASSIUM - SERUM 4.1 mmol/L (3.5-5.1)
[2017-05-01 06:06] LABS: ERYTHROCYTE SEDIMENTATION RATE 65 mm/hr (0-20)
--- NOTE | 2017-05-01 06:35 | NUR ---
GAVE PATIENT SCHEDULED INVOKANA PO. EMPTIED 500ML CLEAR LIGHT YELLOW URINE FORM BEDSIDE URINAL.
--- NOTE | 2017-05-01 07:20 | NUR ---
OFF FLOOR GOING OUTSIDE TO SMOKE VIA WHEELCHAIR
--- NOTE | 2017-05-01 07:34 | NUR ---
RESTING QUIETLY IN BED. NO S/S DISTRESS OR NEEDS. CALL LIGHT IN REACH
--- NOTE | 2017-05-01 08:14 | NUR ---
PT BACK ON FLOOR FROM OUTSIDE. OFFERS NO COMPLAINTS. SITTING UP IN WC EATING BREAKFAST. NO S/SX OF DISTRESS. CALL LIGHT IN REACH
[2017-05-01 08:16] VITALS: BP 120/68
--- NOTE | 2017-05-01 12:00 | NUR ---
PT IN GYM WITH OCCUPATIONAL THERAPY.
--- NOTE | 2017-05-01 12:13 | NUR ---
CLINICALS FAXED TO SOBIA MCCANN AT , AUTH # [id number], ID # [id number] WITH [employer]. WITH TENATIVE DISCHARGE DATE BEING 05/06/17. CONFORMATION RECIEVED FOR FAX. WILL CONTINUE TO FOLLOW WITH PATIENT.
--- NOTE | 2017-05-01 12:38 | NUR ---
PT OFF FLOOR VIA WC WITH TO GO OUTSIDE TO SMOKE.
--- NOTE | 2017-05-01 15:36 | NUR ---
IN THERAPY GYM WITH PHYSICAL THERAPY. DENIES ANY NEEDS AT THIS TIME.
--- NOTE | 2017-05-01 17:14 | NUR ---
SITTING UP IN WHEELCHAIR EATING DINNER. OFFERS NO COMPLAINTS. CALL LIGHT IN REACH. WILL CONTINUE TO MONITOR
[2017-05-01 19:30] VITALS: BP 118/57
--- NOTE | 2017-05-01 19:30 | NUR ---
PM ROUNDS MADE, PT SITTING UP IN WC, VS OBTAINED, PT RATES INC PAIN 03/31, REQUESTS PAIN MED WHEN DUE, INFORMED PT THAT I WILL BE BACK SHORTLY TO DO ASSESSMENT, PT VERBALIZES UNDERSTANDING, STATES "I'M GOING TO GO OUTSIDE WITH MY FOR A FEW MINUTES"
--- NOTE | 2017-05-01 20:15 | NUR ---
PT BACK IN ROOM, HAS PT UP IN SHOWER AT THIS TIME, REQUESTED AND PROVIDED LINENS FOR BED
--- NOTE | 2017-05-01 20:35 | NUR ---
PT'S AT LATHING SUPERVISOR, INFORMED ME THAT PT'S STERI STRIPS ARE COMING OFF AND INC IS BLEEDING, THIS RN AND TULIO POOLE, RN TO ROOM FOR EVALUATION, SCANT AMOUNT OF BLEEDING NOTED, LOOSE STERI STRIPS REMOVED, NEW STERI STRIPS AND ISLAND DRESSING PLACED, INFORMED PT THAT I WILL BE BACK SHORTLY TO ADM MEDS, PT VERBALIZES UNDERSTANDING
--- NOTE | 2017-05-01 21:03 | NUR ---
ADM 2100 MEDS PER MD ORDERS, SEE EMAR, FSBS, PT REQUESTED AND SERVED BOTTLED WATER, INFORMED PT THAT I WILL BE BACK SHORTLY TO ADM INSULIN, PT VERBALIZES UNDERSTANDING
--- NOTE | 2017-05-01 22:00 | NUR ---
ADM INSULIN PER MD ORDERS, SEE EMAR, VERIFIED PER THIS RN AND TULIO POOLE, RN, PT REQUESTED AND SERVED GIANA BERMUDEZ PT DENIES FURTHER NEEDS
--- NOTE | 2017-05-02 00:30 | NUR ---
PT RESTING WITH EYES CLOSED, RESP QUIET, NO DISTRESS NOTED, LEFT UNDISTURBED AT THIS TIME
--- NOTE | 2017-05-02 02:02 | NUR ---
PT RESTING WITH EYES CLOSED, RESP QUIET, NO DISTRESS NOTED, LEFT UNDISTURBED AT THIS TIME
--- NOTE | 2017-05-02 04:18 | NUR ---
PT MATTING PRESS TENDER LIGHT, PT REQUESTED URINAL TO BE EMPTIED BECAUSE HE NEEDED TO USE IT AGAIN, PT FINISHED VOIDING, EMPTIED URINAL AGAIN, SEE FLOW SHEET, ADM PAIN MED PER MD ORDERS, SEE EMAR, DIRTY LINENS REMOVED FROM BR AND ROOM, PT DENIES FURTHER NEEDS AT THIS TIME
--- NOTE | 2017-05-02 05:30 | NUR ---
PT MONITOR WORKER LIGHT, REQUESTED AND SERVED COFFEE, DENIES FURTHER NEEDS AT THIS TIME
--- NOTE | 2017-05-02 06:39 | NUR ---
PT OUT FRONT, TULIO POOLE RN OBTAINED FSBS OUT THERE
--- NOTE | 2017-05-02 07:00 | NUR ---
SHIFT REPORT TO DAY SHIFT
--- NOTE | 2017-05-02 07:12 | NUR ---
RESTING QUIETLY IN BED. EYES CLOSED. NO S/S DISTRESS OR NEEDS. CALL LIGHT IN REACH.
--- NOTE | 2017-05-02 07:38 | NUR ---
SITTING UP IN WC. OFFERS NO COMPLAINTS. CALL LIGHT IN REACH.
[2017-05-02 08:02] VITALS: BP 116/62
[2017-05-02 08:04] LABS: BASOPHILS 0.4 % (0-2); HEMATOCRIT 29.5 % (42.0-54.0); HEMOGLOBIN 10.1 g/dL (13.5-17.5); IMMATURE GRANULOCYTES 0.4 % (0-5); LYMPHOCYTES 35.5 % (15-50); MCH 27.6 pg (26.0-34.0); MCHC 34.2 g/dL (31.0-37.0); MCV 80.6 fL (80.0-100.0); MEAN PLATELET VOLUME 8.5 fL (7.4-10.4); MONOCYTES 8.2 % (2-11); NEUTROPHILS 46.5 % (40-80); PLATELET COUNT 320 10x3/uL (130-400); RBC 3.66 10x6/uL (4.20-6.10); RDW 13.9 % (11.5-14.5); WBC 7.5 10x3/uL (4.8-10.8)
[2017-05-02 08:48] LABS: CALCIUM 8.5 mg/dL (8.5-10.1); CARBON DIOXIDE 30.2 mmol/L (21.0-32.0); CREATININE - SERUM 1.2 mg/dL (0.6-1.3); POTASSIUM - SERUM 4.2 mmol/L (3.5-5.1)
[2017-05-02 09:13] LABS: ERYTHROCYTE SEDIMENTATION RATE 59 mm/hr (0-20)
--- NOTE | 2017-05-02 12:05 | NUR ---
IN THERAPY GYM WITH OCCUPATIONAL THERAPY
--- NOTE | 2017-05-02 14:40 | NUR ---
sitting in wc watching tv. offers no complaints. call light in reach. will continue to monitor.
--- NOTE | 2017-05-02 17:38 | NUR ---
SITTING UP IN WHEELCHAIR EATING DINNER. OFFERS NO COMPLAINTS. NO S/SX OF DISTRESS. CALL LIGHT IN REACH. WILL CONTINUE TO MONITOR
--- NOTE | 2017-05-02 19:10 | NUR ---
PT SITTING UP IN WC, INFORMED PT THAT I WILL BE BACK LATER TO DO ASSESSMENT, PT VERBALIZES UNDERSTANDING, DENIES NEEDS AT THIS TIME
--- NOTE | 2017-05-02 20:00 | NUR ---
PT OUT OF ROOM AT THIS TIME WITH
--- NOTE | 2017-05-02 21:29 | NUR ---
OBTAINED FSBS AT THIS TIME
[2017-05-02 21:37] VITALS: BP 108/64
--- NOTE | 2017-05-02 21:37 | NUR ---
ADM 2100 MEDS PER MD ORDERS, SEE EMAR WITH 2 BOTTLES OF WATER
--- NOTE | 2017-05-02 21:44 | NUR ---
ADM INSULIN AT THIS TIME, SEE EMAR, ASSESSMENT PER FLOW SHEET, VS OBTAINED, DRESSING ON LEFT HIP AND THIGH INTACT, WILL REMOVE LATER PER PT'S REQUEST, PT REQUESTED AND SERVED GIANA BERMUDEZ, PT DENIES FURTHER NEEDS
--- NOTE | 2017-05-02 22:30 | NUR ---
PT WATCHING TV, DENIES NEEDS AT THIS TIME
--- NOTE | 2017-05-03 00:21 | NUR ---
PT MANUFACTURING STOREPERSON LIGHT, EMPTIED 650 MLS OF CLEAR YELLOW URINE FROM URINAL, ISLAND DRESSING REMOVED, DRIED DRAINAGE NOTED, LEFT OFF TO AIR, PT REQUESTED THAT I HAND HIM HIS CORN CHIPS, PT DENIES FURTHER NEEDS
--- NOTE | 2017-05-03 06:12 | NUR ---
PT AWAKE, SITTING ON SIDE OF BED, OBTAINED FSBS, BS 124, NO INSULIN PER SLIDING SCALE, ADM 0600 MED AND PAIN MED PER MD ORDERS, SEE EMAR FSBS, ADM 0600 MED AND PAIN MED PER MD ORDERS, SEE EMAR, EMPTIED URINAL, PT DENIES FURTHER NEEDS
--- NOTE | 2017-05-03 06:35 | NUR ---
PT OFF UNIT VIA
--- NOTE | 2017-05-03 06:41 | NUR ---
SHIFT REPORT TO DAY SHIFT
--- NOTE | 2017-05-03 07:09 | NUR ---
SITTING UP IN WC BRUSHING DENTURES. OFFERS NO COMPLAINTS. WILL CONTINUE TO MONITOR
[2017-05-03 08:00] VITALS: BP 136/82
--- NOTE | 2017-05-03 08:49 | NUR ---
administered morning meds without difficulty. c/o left hip incisional pain. offers no other complaints. call light in reach. will continue to monitor
--- NOTE | 2017-05-03 12:19 | NUR ---
SITTING UP IN BED EATING LUNCH. OFFERS NO COMPLAINTS. CALL LIGHT IN REACH. WILL CONTINUE TO MONITOR
--- NOTE | 2017-05-03 14:22 | NUR ---
OFF FLOOR OUT FRONT GETTING FRESH AIR.
--- NOTE | 2017-05-03 15:00 | NUR ---
RESTING QUIETLY IN BED.CL IN REACH.
--- NOTE | 2017-05-03 18:45 | NUR ---
LYING IN BED RESTING. OFFERS NO COMPLAINTS. CALL LIGHT IN REACH. WILL CONTINUE TO MONITOR
--- NOTE | 2017-05-03 19:15 | NUR ---
PT. SITTING UP IN W/C VISITING WITH HIS . NO VOICED NEEDS AT THIS TIME AND HIS CALL LIGHT IS WITHIN REACH.
--- NOTE | 2017-05-03 21:27 | NUR ---
PT IS RESTING IN BED WATCHING TV. ALERT AND ORIENTED X 4. NO ACUTE DISTRESS NOTED. TOLERATED PM MEDS WITHOUT DIFFICULTY. PT DENIES ANY NEEDS. HE REFUSED HIS HS SNACK, DUE TO HAVING A SANDWICH TO EAT INSTEAD OF HIS MILK AND ANDREW CRACKERS. SR'S ARE UP X 2 IN BED. CALL LIGHT AND BEDSIDE TABLE ARE WITHIN EASY REACH.
[2017-05-03 21:55] VITALS: BP 141/83
--- NOTE | 2017-05-04 00:27 | NUR ---
RESTING IN BED WITH EYES OPEN. USING URINAL PRN.
--- NOTE | 2017-05-04 03:02 | NUR ---
RESTING IN BED WITH EYES CLOSED.
[2017-05-04 07:30] VITALS: BP 110/63
--- NOTE | 2017-05-04 07:35 | NUR ---
SITTING UP IN WHEELCHAIR AT SINK BRUSHING TEETH. OFFERS NO COMPLAINTS. NO S/SX OF DISTRESS. CALL LIGHT IN REACH
--- NOTE | 2017-05-04 14:00 | NUR ---
SITTING UP IN BED RESTING. OFFERS NO COMPLAINTS. CALL LIGHT IN REACH. WILL CONTINUE TO MONITOR
--- NOTE | 2017-05-04 16:17 | NUR ---
LYING IN BED RESTING. OFFERS NO COMPLAINTS. CALL LIGHT IN REACH. WILL CONTINUE TO MONITOR
--- NOTE | 2017-05-04 16:30 | NUR ---
RESTING QUIETLY.CL IN REACH.
--- NOTE | 2017-05-04 18:08 | NUR ---
SITTING UP IN BED WATCHING TV. OFFERS NO COMPLAINTS. CALL LIGHT IN REACH. WILL CONTINUE TO MONTIOR
--- NOTE | 2017-05-04 19:15 | NUR ---
PT. SITTING ON THE SIDE OF HIS BED AND WATCHING TV. NO VOICED NEEDS AND HIS CALL LIGHT IS WITHIN REACH.
--- NOTE | 2017-05-04 22:33 | NUR ---
PT IS RESTING IN BED TALKING ON THE PHONE. ALERT AND ORIENTED X 4. DENIES ACUTE DISCOMFORT AT THIS TIME. NO NEEDS VOICED. VSS. FSBS WNL. SR'S ARE UP X 2 IN BED. CALL LIGHT AND BEDSIDE TABLE ARE WITHIN EASY REACH.
--- NOTE | 2017-05-05 00:21 | NUR ---
RESTING IN BED WITH EYES CLOSED.
--- NOTE | 2017-05-05 03:00 | NUR ---
RESTING IN BED WITH EYES CLOSED. USING URINAL PRN.
[2017-05-05 05:49] LABS: BASOPHILS 0.4 % (0-2); EOSINOPHILS 8.1 % (0-7); HEMATOCRIT 30.2 % (42.0-54.0); HEMOGLOBIN 10.4 g/dL (13.5-17.5); IMMATURE GRANULOCYTES 0.3 % (0-5); LYMPHOCYTES 45.9 % (15-50); MCH 27.5 pg (26.0-34.0); MCHC 34.4 g/dL (31.0-37.0); MCV 79.9 fL (80.0-100.0); MEAN PLATELET VOLUME 8.7 fL (7.4-10.4); MONOCYTES 7.4 % (2-11); NEUTROPHILS 37.9 % (40-80); PLATELET COUNT 285 10x3/uL (130-400); RBC 3.78 10x6/uL (4.20-6.10); RDW 13.9 % (11.5-14.5); WBC 7.5 10x3/uL (4.8-10.8)
[2017-05-05 06:04] LABS: ANION GAP 10.2 mmol/L (8-16); CALCIUM 8.8 mg/dL (8.5-10.1); CARBON DIOXIDE 30.9 mmol/L (21.0-32.0); CREATININE - SERUM 1.1 mg/dL (0.6-1.3); POTASSIUM - SERUM 4.1 mmol/L (3.5-5.1)
--- NOTE | 2017-05-05 06:08 | NUR ---
PT RESTING IN BED DRINKING A CUP OF COFFEE. NO COMPLAINT VOICED.
--- NOTE | 2017-05-05 08:27 | NUR ---
PT RESTING IN BED WITH EYES OPEN CALL LIGHT IN REACH NO PROBLEMS WILL MONITER
[2017-05-05] MEDS ORDERED: PERCOCET 10/3251 TA1 PO (08:38)
[2017-05-05] MEDS ORDERED: OXYCONTIN10 MG PO (08:38)
[2017-05-05 09:30] VITALS: BP 121/63
--- NOTE | 2017-05-05 15:44 | NUR ---
PT GIVEN PERCOCET 2 10MG TAB FOR 8 PAIN TO LEFT HIP WILL MONITER
--- NOTE | 2017-05-05 17:55 | NUR ---
EATING SUPPER IN ROOM. DENIES NEEDS OR C/O. CALL LIGHT IN REACH
--- NOTE | 2017-05-05 19:30 | NUR ---
PM ROUNDS MADE, PT OUT OF ROOM AT THIS TIME
--- NOTE | 2017-05-05 20:15 | NUR ---
PT UP IN SHOWER AT THIS TIME, IS IN ROOM
[2017-05-05 21:51] VITALS: BP 110/57
--- NOTE | 2017-05-05 21:51 | NUR ---
PT AWAKE, FSBS, OBTAINED VS, ASSESSMENT PER FLOW SHEET, ADM 2100 MEDS PER MD ORDERS, SEE EMAR, PT REQUESTED AND SERVED BOTTLED WATER AND ICE CREAM, PT DENIES FURTHER NEEDS
--- NOTE | 2017-05-05 22:03 | NUR ---
ADM INSULIN PER MD ORDERS, SEE EMAR, VERIFIED PER THIS RN AND DISHA VÁSQUEZ, RN, CHARGE NURSE
--- NOTE | 2017-05-05 22:30 | NUR ---
PT RESTING WITH EYES CLOSED, RESP QUIET, NO DISTRESS NOTED, LEFT UNDISTURBED AT THIS TIME
--- NOTE | 2017-05-06 00:20 | NUR ---
PT RESTING WITH EYES CLOSED, RESP QUIET, NO DISTRESS NOTED, LEFT UNDISTURBED AT THIS TIME
--- NOTE | 2017-05-06 01:04 | NUR ---
PT COPING MACHINE OPERATOR LIGHT, EMPTIED URINAL REQUESTED, PT DENIES FURTHER NEEDS OR PAIN AT THIS TIME
--- NOTE | 2017-05-06 03:35 | NUR ---
PT RESTING WITH EYES CLOSED, RESP QUIET, NO DISTRESS NOTED, LEFT UNDISTURBED AT THIS TIME
--- NOTE | 2017-05-06 07:00 | NUR ---
SHIFT REPORT TO DAY SHIFT
--- NOTE | 2017-05-06 07:44 | NUR ---
PT RESTING IN BED WITH EYES OPEN CALL LIGHT IN REACH WILL MONITER
--- NOTE | 2017-05-06 10:53 | NUR ---
PATIENT DISCHARGING HOME WITH FAMILY TODAY. [facility] WILL FOLLOW WITH PATIENT AT HOME FOR THERAPY NEEDS. [facility] WILL DELIVER A WHEELCHAIR AND BSC. DR. SCHOFIELD 05/14/17 @ 9:45, DR. KELLEY 05/20/17 @ 8:30, DR. KHAN 05/21/17 @ 1:20. ORDERS SENT TO HOME HEALTH BY FAY WITH [facility]. PATIENT CHOICE FORM FOR HOME HEALTH AND [facility] FORM SIGNED, EXPLAINED AND FILED IN CHART.
--- NOTE | 2017-05-06 13:30 | NUR ---
PT DISCHARGED TO HOME VIA WHEELCHAIR WITH DISCHARGE SUMMARY AND MEDS REVIEWED WITH PT ALL MEDS CALLED TO [facility] PT HAD NO QUESTIONS
== END 2017-05-06 15:03 | disposition home health service (06) | DRG 561 ==
LOC: D.REHAB 19:32
PROVIDERS: Family Medicine; ADMIT Emergency Medicine
DX: Z47.1 Aftercare following joint replacement surgery (principal); Z96.642 Presence of left artificial hip joint; E11.9 Type 2 diabetes mellitus without complications; B18.2 Chronic viral hepatitis C; I10 Essential (primary) hypertension; E03.9 Hypothyroidism, unspecified; M19.90 Unspecified osteoarthritis, unspecified site; F17.200 Nicotine dependence, unspecified, uncomplicated; R06.02 Shortness of breath; R53.81 Other malaise

== ENCOUNTER → 2017-05-21 15:49 | Outpatient (CLI) | payer MEDICARE ==
[2017-04-24 11:09] VITALS: BMI 26.2
[~2017-05-21 15:49] MED LIST changes: +ACETAMINOPHEN325 MG PO; +BENADRYL25 MG PO; +FLORAJEN3 CAPS460 MG PO
[2017-05-21 16:07] LABS: BASOPHILS 0.3 % (0-2); EOSINOPHILS 7.4 % (0-7); HEMATOCRIT 31.9 % (42.0-54.0); HEMOGLOBIN 11.1 g/dL (13.5-17.5); IMMATURE GRANULOCYTES 0.2 % (0-5); LYMPHOCYTES 43.4 % (15-50); MCH 27.4 pg (26.0-34.0); MCHC 34.8 g/dL (31.0-37.0); MCV 78.8 fL (80.0-100.0); MEAN PLATELET VOLUME 9.1 fL (7.4-10.4); MONOCYTES 5.6 % (2-11); NEUTROPHILS 43.1 % (40-80); PLATELET COUNT 247 10x3/uL (130-400); RBC 4.05 10x6/uL (4.20-6.10); RDW 13.6 % (11.5-14.5); WBC 6.6 10x3/uL (4.8-10.8)
[2017-05-21 16:17] LABS: ANION GAP 11.9 mmol/L (8-16); C-REACTIVE PROTEIN 0.6 mg/dL (0.0-0.9); CALCIUM 8.6 mg/dL (8.5-10.1); CARBON DIOXIDE 27.3 mmol/L (21.0-32.0); CREATININE - SERUM 1.1 mg/dL (0.6-1.3); POTASSIUM - SERUM 4.2 mmol/L (3.5-5.1)
[2017-05-21 17:16] LABS: ERYTHROCYTE SEDIMENTATION RATE 43 mm/hr (0-20)
== END | disposition home or self-care (01) ==
LOC: D.US 15:49
PROVIDERS: Student in an Organized Health Care Education/Training Program
DX: T84.51XA Infection and inflammatory reaction due to internal right hip prosthesis, initial encounter (principal); Z51.81 Encounter for therapeutic drug level monitoring; Z79.2 Long term (current) use of antibiotics

== ENCOUNTER 2017-06-06 12:00 | Inpatient (IN) | payer MEDICARE ==
[2017-06-05 11:35] LABS: BASOPHILS 0.2 % (0-2); EOSINOPHILS 4.8 % (0-7); HEMATOCRIT 35.7 % (42.0-54.0); IMMATURE GRANULOCYTES 0.1 % (0-5); LYMPHOCYTES 42.2 % (15-50); MCH 26.2 pg (26.0-34.0); MCHC 33.6 g/dL (31.0-37.0); MCV 77.9 fL (80.0-100.0); MONOCYTES 4.9 % (2-11); NEUTROPHILS 47.8 % (40-80); PLATELET COUNT 263 10x3/uL (130-400); RBC 4.58 10x6/uL (4.20-6.10); RDW 13.8 % (11.5-14.5); WBC 8.1 10x3/uL (4.8-10.8)
[2017-06-05 11:44] LABS: ANION GAP 9.5 mmol/L (8-16); C-REACTIVE PROTEIN 1.2 mg/dL (0.0-0.9); CALCIUM 8.7 mg/dL (8.5-10.1); CARBON DIOXIDE 29.1 mmol/L (21.0-32.0); CREATININE - SERUM 1.1 mg/dL (0.6-1.3); POTASSIUM - SERUM 4.6 mmol/L (3.5-5.1)
[2017-06-05 11:51] LABS: APPEARANCE CLEAR (CLEAR); BILIRUBIN NEGATIVE (NEGATIVE); COLOR YELLOW (YELLOW); GLUCOSE 500 mg/dL (NEGATIVE); KETONE NEGATIVE (NEGATIVE); LEUKOCYTE ESTERASE NEGATIVE (NEGATIVE); NITRITE NEGATIVE (NEGATIVE); PROTEIN NEGATIVE (NEGATIVE); UROBILINOGEN NORMAL (NORMAL)
[2017-06-05 12:56] LABS: ERYTHROCYTE SEDIMENTATION RATE 30 mm/hr (0-20)
[~2017-06-06] VITALS: Ht 185.4 cm; Wt 136.5 kg
--- NOTE | ~2017-06-06 | OP ---
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 PROCEDURE: Removal of cement spacer and revision left total hip arthroplasty. SURGEON: Landon Kelley MD. ANESTHESIA: General. INTRAOPERATIVE COMPLICATIONS: None. SUMMARY OF PATHOLOGIC FINDINGS: The wound bed looked pristine. OPERATIVE SUMMARY IN DETAIL: After obtaining the appropriate preoperative orthopedic surgery consent as well as anesthetic consultation, evaluation and clearance, the patient was brought to the operating room and placed on the operating table in supine position. After adequate general laryngeal mask airway was administered, the patient was placed in a right lateral decubitus position. Right lower extremity was prepped and draped in routine sterile fashion. Previously utilized incision was utilized again, taken along the IT band which was split in line with the fibers of IT band to reveal gluteus medius and minimus attachment to the greater trochanter. This was reflected anteriorly. Previously placed spacer was removed as was the ole from the shaft of the femur. The acetabulum was exposed. All scar tissue was removed. Serial and sequential reaming was done to a 65 and a size 66 multi-hole Tritanium cup was put into place using screws in the posterior superior aspect for excellent compression. The +6 polyethylene spacer was put into place with a good tight snap fit. Attention was then turned to the proximal femur. Serial and sequential reaming were done for a Rest-Mod stem which was put into place. Proximal reaming was done for a size 21 standard proximal body. After trialing 21 standard proximal body, it was put into place to the appropriate version and the -5 ceramic head was tamped into place with the Chan taper and the hip was reduced, taken through range of motion and found to be stable in all planes. Copious pulsatile lavage irrigation was followed by closure of the wound with residual capsule followed by reapproximation of the gluteus medius and minimus back to the greater trochanter using transosseous sutures of #5 Ethibond. This was then followed by #5 Ethibond reapproximation of the IT band, with #1 Vicryl, 2-0 Vicryl and skin noe for final closure. Sterile dressings were applied. The patient was awakened and taken to the recovery room in stable condition. All final needle and sponge counts were correct. TRANSINT:[id number] Voice Confirmation ID: [id number] DOCUMENT ID: [id number] OPERATIVE REPORT [id number] ROSEMARY KEY MD, LANDON REIS CC: [id number] DICTATION DATE: 06/14/17953 POT ROOM TAPPER: 06/14/17 1132 DIS IN 06/13/17 [id number] [place] [address]
[2017-06-09 14:18] VITALS: BP 120/64; BMI 39.8
--- NOTE | 2017-06-09 20:00 | NUR ---
REC'D TO ROOM 2212 PER BED FROM PACU POST OP REVISION OF LEFT HIP PER SERVICES DR. KELLEY. DRESSING TO LEFT HIP C/D/I.
--- NOTE | 2017-06-09 20:37 | NUR ---
PATIENT COMPLAINED OF ITCHING ON BOTH FEET. HE STATED HE COULD NOT TOLERATE THIS. CONSULTED ANESTHESIA. DR RASHID AT BEDSIDE. DR RASHID ORDERED 25MG BENADRYL IV X1 DOSE. AFTER 20 MINUTES HAD PASSED HE STILL CONTINUED TO COMPLAIN OF ITCHING. PLACED SOME COLD WET WASH CLOTHS ON BOTH OF HIS FEET WITH NO RELIEF. CONSULTED DR RASHID AND AT THIS TIME DR. RASHID ORDERED HYDROXYZINE 50MG IM TO BE GIVEN X1 DOSE IN PACU. CALLED PHARMACY AND SEND THE ORDER. THIS WAS BROUGHT TO PACU BY KEN BROCK TECH. WILL CONTINUE TO MONITOR.
[2017-06-10 04:00] VITALS: BP 118/60
[2017-06-10 07:04] LABS: HEMATOCRIT 32.7 % (42.0-54.0); HEMOGLOBIN 10.8 g/dL (13.5-17.5); MCH 26.1 pg (26.0-34.0); RBC 4.14 10x6/uL (4.20-6.10); RDW 14.1 % (11.5-14.5); WBC 5.6 10x3/uL (4.8-10.8)
--- NOTE | 2017-06-10 07:30 | NUR ---
AWAKE AND ALERT. ORIENTED X3. NO C/O AT THIS TIME. LUNGS ARE CLEAR BILATERALLY,NO COUGH NOTED. SKIN IS INTACT WITHOUT REDNESS EXCEPT INCISION TO LEFT HIP WHICH HAS A DRY INTACT DRESSING IN PLACE. IV TO RIGHT FOREARM PATNET WITHOUT REDNESS AT INSERTION SITE. DENIES NEEDS.
[2017-06-10 08:31] VITALS: BP 127/66
[2017-06-10 08:43] VITALS: BP 124/64; BMI 39.8
--- NOTE | 2017-06-10 10:00 | NUR ---
UP IN CHIAR AT BEDSIDE PER PT. DENIES NEEDS.
--- NOTE | 2017-06-10 10:22 | NUR ---
REHAB PRESCREENING Rehab referral received and chart reviewed. This patient is well known to rehab. He does have [employer] insurance and will require a pre-authorization. He will need both PT and OT evaluations in place prior to submission for pre-auth. Thank you for this referral! Roseann Tesfaye, FINANCE TEACHER Rehab Tester Equipment
--- NOTE | 2017-06-10 12:00 | NUR ---
FSBS 158. GIVEN 2 UNITS HUMALOG SUB Q PER SS.
--- NOTE | 2017-06-10 12:15 | NUR ---
REQUESTED AND GIVEN 15MG TORADOL SLOW IVP FOR C/O PAIN LEVEL 7. WILL MONITOR.
--- NOTE | 2017-06-10 13:00 | NUR ---
IV TO RIGHT FOREARM LEAKING. D/C WITH CATHETER INTACT. RESITED TO LEFT FOREARM AFTER ONE ATTEMPT WITH 22G.
[2017-06-10 13:03] VITALS: BP 109/55
--- NOTE | 2017-06-10 15:25 | NUR ---
REQUESTED AND GIVEN ONE PERCOCET PO FOR C/O LEFT HIP PAIN LEVEL 10. WILL MONITOR.
[2017-06-10 16:26] VITALS: BP 128/54
--- NOTE | 2017-06-10 17:00 | NUR ---
FSBS 113. NO COVERAGE NEEDED. JULIETA SERVED IN ROOM.
--- NOTE | 2017-06-10 18:16 | NUR ---
NO CHANGES NOTED. DENIES NEEDS.
[2017-06-10 19:00] VITALS: BP 123/60
--- NOTE | 2017-06-10 19:38 | NUR ---
OT NOTE: PT REQUIRES SBA/CGA FOR SITTING BALANCE AT EOB. PT REQUIRES MIN/MOD A WITH BED MOB. PT REQUIRES VERBAL CUES FOR INCREASED SAFETY AWARENESS. THANK YOU, RAJEEV LESLIE/Jong
--- NOTE | 2017-06-10 20:23 | NUR ---
AWAKE AND ALERT. ORIENTED X3. NO C/O AT THIS TIME. LUNGS ARE CLEAR BILATERALLY, NO COUGH NOTED. SKIN IS INTACT WITHOUT REDNESS EXCEPT INCISION TO LEFT HIP, WHICH HAS A DRY INTACT DRESSING IN PLACE. SL TO LEFT FOREARM IS PATENT WITHOUT REDNESS AT INSERTION SITE. DENIES NEEDS.
--- NOTE | 2017-06-10 22:04 | NUR ---
FSBS 165. GIVEN 2 UNITS HUMALOG SUBQ PER SS.
[2017-06-11] VITALS: BP 116/47
--- NOTE | 2017-06-11 00:41 | NUR ---
PT RESTING QUIETLY WITH NO DISTRESS NOTED AROUSED TO VERBAL SITIMULI CALL LIGHT INREACH SIDE RAILS UP X 2
[2017-06-11 04:00] VITALS: BP 159/57
--- NOTE | 2017-06-11 05:02 | NUR ---
KATIE MAT ALARM APPLIED TO PT HE IS AT RISK FOR FALLS AND EXISTING BED ALARM DOES NOT FUNCTION PROPERLY.
--- NOTE | 2017-06-11 05:05 | NUR ---
PROVIDED PT WITH INCENTIVE SPIROMETER AT THIS TIME TEMPERATURE IS 100.1. NO INCENTIVE SPIROMETER AT BEDSIDE. INSTRUCTED PT ON USE AND HE DEMONSTRATED PROPER USAGE.
[2017-06-11 06:24] LABS: HEMOGLOBIN 8.9 g/dL (13.5-17.5); MCH 26.3 pg (26.0-34.0); MCHC 34.6 g/dL (31.0-37.0); MEAN PLATELET VOLUME 8.7 fL (7.4-10.4); RBC 3.38 10x6/uL (4.20-6.10); RDW 14.2 % (11.5-14.5)
[2017-06-11 06:36] LABS: HEMATOCRIT 25.7 % (42.0-54.0); WBC 7.2 10x3/uL (4.8-10.8)
--- NOTE | 2017-06-11 07:30 | NUR ---
PATIENT RECEIVED ALERT IN HIGH MCCAIN POSITION. NO SIGNS OF DISTRESS NOTED. C/O PAIN 05/01. SIDE RAILS UP X2. BED IN LOW POSITION. CALL LIGHT IN REACH.
--- NOTE | 2017-06-11 08:00 | NUR ---
ALERT IN BED. NO SIGNS OF DISTRESS NOTED. SCHEDULED MEDICATION ADMINISTERED. DENIES NEEDS. SIDE RAILS UP X2. BED IN LOW POSITION. CALL LIGHT IN REACH.
[2017-06-11 08:26] VITALS: BP 118/62
--- NOTE | 2017-06-11 11:05 | NUR ---
ALERT IN BED. ACCU CHECK 79. PROVIDED WITH JUICE AND CRACKERS. C/O PAIN 05/01. PERCOCET PER PRN ORDER. NO FURTHER NEEDS VOICED. SIDE RAILS UP X2. BED IN LOW POSITION. CALL LIGHT IN REACH.
[2017-06-11 13:08] VITALS: BP 115/53
--- NOTE | 2017-06-11 13:30 | NUR ---
PATIENT UP AT BEDSIDE WITH PT. NO SIGNS OF DISTRESS NOTED.
--- NOTE | 2017-06-11 13:51 | NUR ---
Patient Name: ROSEMARY KEY Admission Status: Elective Accout number: [id number] Admission Date: 06-09-2017 : 1955 Admission Diagnosis:AFTERCARE FOLLOWING EXPLANTATION OF HIP JOINT PROSTHESI Attending: LANDON KELLEY Current LOS: 2 Anticipated DC Date: Planned Disposition: Inpatient Rehab Primary Insurance: [employer] CHOICE [facility] Discharge Planning Comments: CM met with patient to assess discharge planning needs. Patient plans to discharge to our in patient rehab at [facility], he has been there before and would like to do his rehab there. Patient has a walker, wheelchair, cane, bedside commode at home. He has a ramp to enter his home and states that he is independent with his care. CM will continue to follow and assist with discharge planning needs. PCP: Jakob [facility] [address] [place] () [phone] Wallpaper Installer: Katherine Garcia * Is the patient Alert and Oriented? Yes 0 * How many steps to enter\exit or inside your home? ramp 0 * PCP Jakob 0 * Pharmacy [facility] 0 * Preadmission Environment Home with Family 0 * ADLs Independent 0 * Equipment Bedside Commode Cane Rolling Walker Walker Wheelchair 0 * List name and contact numbers for known caregivers / representatives who currently or will assist patient after discharge: Katherine () [phone] 0 * Community resources currently utilized None 0 * Additional services required to return to the preadmission environment? Yes 0 * Can the patient safely return to the preadmission environment? Yes 0 * Has this patient been hospitalized within the prior 30 days at any hospital? No 0 Grand Total: 0
[2017-06-11 15:11] VITALS: Ht 185.4 cm; Wt 136.5 kg
--- NOTE | 2017-06-11 16:19 | NUR ---
Rehab Note- Have started the process with the PreAuth for an acute rehab stay with [facility]. Will continue to follow. Thank you for this referral! Meghan Lopez RN Clinical Liaison, [facility] Rehab
--- NOTE | 2017-06-11 16:38 | NUR ---
ACCU CHECK 177. INSULIN PER SLIDING SCALE. SCHEDULED MEDICATION ADMINISTERED. BED IN LOW POSITION. SIDE RAILS UP X2. CALL LIGHT IN REACH. WILL CONTINUE TO MONITOR.
[2017-06-11 17:40] VITALS: BP 113/56
[2017-06-11 19:00] VITALS: BP 140/58
[2017-06-12 04:00] VITALS: BP 136/60
--- NOTE | 2017-06-12 07:40 | NUR ---
AWAKE AND ALERT SITTING UP AT THIS SIDE OF THE BED. COMPLAINS OF TENDER MUCOUS MEMBRANES. RELAYED INFORMATION TO DR KELLEY AND NINI BUENROSTRO. KATIE MAT ALARM ON AND IN USE AT THIS TIME. CALL CELIA ZAMORA, WILL CONTINUE WITH PLAN OF CARE.
[2017-06-12 08:22] LABS: HEMOGLOBIN 9.3 g/dL (13.5-17.5)
--- NOTE | 2017-06-12 09:11 | NUR ---
SCHEDULED MEDICATIONS ADMINISTERED AT THIS TIME. SITTING UP AT BEDSIDE. CALL LIGHT IN REACH AND BED ALARM ON. WILL CONTINUE WITH PLAN OF CARE.
[2017-06-12 09:46] VITALS: BP 103/54
--- NOTE | 2017-06-12 10:35 | NUR ---
PRN PERCOCET ADMINISTERED FOR PAIN 7/10 AT THIS TIME. PROVIDED PT WITH PUDDING TO EAT AT THIS TIME. CALL LIGHT IN REACH, WILL CONTINUE WITH PLAN OF CARE.
--- NOTE | 2017-06-12 11:30 | NUR ---
UP IN WHEELCHAIR WITH SPOUSE. WILL MONITOR PT WHEN HE RETURNS TO ROOM 2212.
--- NOTE | 2017-06-12 12:11 | NUR ---
BACK TO ROOM AT THIS TIME. ASSISTED BACK INTO BED AND BED ALARM ON.
--- NOTE | 2017-06-12 14:57 | NUR ---
IV D/C TO LEFT FOREARM WITH CATH TIP INTACT PER PT'S REQUEST.
--- NOTE | 2017-06-12 16:38 | NUR ---
PRN PERCOCET ADMINISTERED AT THIS TIME FOR PAIN.
[2017-06-12 16:42] VITALS: BP 100/54
--- NOTE | 2017-06-12 16:51 | NUR ---
Rehab Note- Received call and fax from [facility] that an acute rehab stay was denied for the patient. Copy of denial letter given to ELISA Wiggins with a copy for the patient. A peer to peer can be set up within 5 days of the denial letter by calling Osiris Castillo at [phone] [phone]. Thank you for this referral! Meghan Lopez RN Clinical Liaison, [facility] Rehab
[2017-06-12 20:20] VITALS: BP 109/76
[2017-06-13 00:40] VITALS: BP 114/54
[2017-06-13 04:56] VITALS: BP 102/53
--- NOTE | 2017-06-13 07:25 | NUR ---
AWAKE AND ALERT SITTING UP AT THE BEDSIDE. KATIE MAT ALARM ON. PROVIDED PT WITH COFFEE. CALL LIGHT IN REACH, WILL CONTINUE WITH PLAN OF CARE.
--- NOTE | 2017-06-13 09:04 | NUR ---
SCHEDULED MEDICATIONS ADMINISTERED AT THIS TIME. IN BED WITH KATIE MAT ALARM ON AND IN USE. CALL LIGHT IN REACH, DENIES FURTHER NEEDS AT THIS TIME. WILL CONTINUE WITH PLAN OF CARE.
[2017-06-13] MEDS ORDERED: NYSTATIN ORAL SU5 ML PO (09:20)
[2017-06-13] MEDS ORDERED: ROXICODONE15 MG PO (09:21)
[2017-06-13 09:39] VITALS: BP 133/88
--- NOTE | 2017-06-13 10:32 | NUR ---
Patient being discharged home today with family to drive home with home health [facility] signed with [facility] for nursing and PT. Family with drive patient home and referral sent to [facility].
--- NOTE | 2017-06-13 11:09 | NUR ---
DISCHARGE PAPERWORK REVIEWED WITH PT. DENIES QUESTIONS OR CONCERNS. WILL D/C HOME WITH FAMILY MEMBER.
== END 2017-06-13 11:12 | disposition home health service (06) | DRG 467 ==
LOC: D.SDCHOLD 12:25 → D.MS 06-09 07:02 → D.SDCHOLD 06-09 12:30 → D.MS 06-09 20:11
PROVIDERS: Anesthesiology; ADMIT Orthopaedic Surgery
PROC: 0SRB04Z Replacement of Left Hip Joint with Ceramic on Polyethylene Synthetic Substitute, Open Approach (ICD-10-PCS; principal; 2017-06-09 13:45)
PROC: 0SPB08Z Removal of Spacer from Left Hip Joint, Open Approach (ICD-10-PCS; 2017-06-09 13:45)
DX: Z47.32 Aftercare following explantation of hip joint prosthesis (principal); D62 Acute posthemorrhagic anemia; E11.40 Type 2 diabetes mellitus with diabetic neuropathy, unspecified; I10 Essential (primary) hypertension; F17.200 Nicotine dependence, unspecified, uncomplicated; B18.2 Chronic viral hepatitis C; E78.5 Hyperlipidemia, unspecified; M19.90 Unspecified osteoarthritis, unspecified site; F32.9 Major depressive disorder, single episode, unspecified

== ENCOUNTER 2017-06-23 14:29 | Inpatient (IN) | payer MEDICARE ==
[~2017-06-23 14:29] MED LIST changes: +NYSTATIN ORAL SU5 ML PO; +ROXICODONE15 MG PO
--- NOTE | 2017-06-23 15:25 | NUR ---
RECEIVED TO ROOM 2222 FROM ADMISSIONS VIA . ORIENTED TO ROOM AND CALL LIGHT SYSTEM. CALL LIGHT IN REACH. WILL CONITNUE WITH PLAN OF CARE.
[2017-06-23 15:29] LABS: BASOPHILS 0.1 % (0-2); EOSINOPHILS 4.8 % (0-7); HEMATOCRIT 30.8 % (42.0-54.0); HEMOGLOBIN 10.4 g/dL (13.5-17.5); IMMATURE GRANULOCYTES 0.4 % (0-5); LYMPHOCYTES 40.5 % (15-50); MCH 25.2 pg (26.0-34.0); MCHC 33.8 g/dL (31.0-37.0); MCV 74.6 fL (80.0-100.0); MEAN PLATELET VOLUME 8.4 fL (7.4-10.4); MONOCYTES 5.7 % (2-11); NEUTROPHILS 48.5 % (40-80); RBC 4.13 10x6/uL (4.20-6.10); RDW 14.3 % (11.5-14.5); WBC 8.1 10x3/uL (4.8-10.8)
[2017-06-23 15:37] LABS: APTT 33.2 SECONDS (22.8-39.4); INR 1.05 (0.85-1.17); PROTIME 13.5 SECONDS (11.6-15.0)
[2017-06-23 15:38] LABS: PLATELET COUNT 372 10x3/uL (130-400)
[2017-06-23 15:43] VITALS: BP 119/63; BMI 40.8
[2017-06-23 15:43] LABS: ALBUMIN 3.2 g/dL (3.4-5.0); ALKALINE PHOSPHATASE 85 U/L (46-116); ALT (SGPT) 13 U/L (10-68); BILIRUBIN - TOTAL 0.21 mg/dL (0.2-1.3); CALC OSMOLALITY 273 mosm/kg (275-300); CALCIUM 9.1 mg/dL (8.5-10.1); CARBON DIOXIDE 26.5 mmol/L (21.0-32.0); CHLORIDE - SERUM 102 mmol/L (98-107); GLUCOSE 121 mg/dL (74-106); POTASSIUM - SERUM 4.2 mmol/L (3.5-5.1); SODIUM 136 mmol/L (136-145); UREA NITROGEN 15 mg/dL (7-18); eGFR NON AFRICAN AMERICAN 81 mL/min (90-120)
[2017-06-23 15:56] VITALS: BP 104/66
--- NOTE | 2017-06-23 18:41 | NUR ---
DINNER TRAY ORDERED. NO CHANGES IN INITIAL ASSESSMENT. CALL LIGHT IN REACH. WILL CONTINUE WITH PLAN OF CARE.
[2017-06-23 22:27] VITALS: BP 131/66
--- NOTE | 2017-06-23 23:36 | NUR ---
PATIENT IS AWAKE, ALERT AND ORIENTED X'S 4. PATIENT IS SMILING, CONVERSATIONAL, TALKING ABOUT HIS HIP BEING DISLOCATED. PATIENT DENIES NEEDS. BED IN LOWEST POSITION, CALL LIGHT IN REACH. BED RIALS UP X'S 2.
[2017-06-24] VITALS: BP 115/61
--- NOTE | 2017-06-24 07:30 | NUR ---
RECIEVED PT DURING WALKING ROUNDS. PT RESTING IN BED WITH COMPLAINTS OF PAIN OF A 5 ON A SCALE OF 1-10. DIGITAL SALES DIRECTOR IN USE. ASSESSMENT DONE PER FLOWSHEET. BED IN LOW POSITION AND CALL LIGHT WITHIN REACH. WILL CONTINUE TO MONITOR.
[2017-06-24 08:05] VITALS: BP 106/60
--- NOTE | 2017-06-24 08:10 | NUR ---
DRESSING CHANGED TO LEFT HIP DUE TO DRESSING LEAKING. PT SITTING UP IN BED. WILL CONTINUE TO MONITOR.
--- NOTE | 2017-06-24 12:25 | NUR ---
RECEIVED PATIENT FROM WALESKA MYERS. DENIES NEEDS AT THIS TIME. CALL LIGHT IN REACH.
[2017-06-24 12:28] VITALS: BP 114/60
[2017-06-24 14:09] VITALS: BMI 40.7
--- NOTE | 2017-06-24 14:20 | NUR ---
DENIES NEEDS AT THIS TIME. CALL LIGHT IN REACH.
[2017-06-24 15:46] VITALS: BP 105/53
--- NOTE | 2017-06-24 16:55 | NUR ---
REQUESTING TUMS AND PAIN MEDS AT THIS TIME. CALL LIGHT IN REACH.
--- NOTE | 2017-06-24 17:11 | NUR ---
PERCOCET AND TUMS PO WITH METFORMIN PO. BLOOD SUGAR 94.
--- NOTE | 2017-06-24 19:33 | NUR ---
BENADRYL 25 MG PO PER C/O ITCHING. NO OTHER CHANGES IN INITIAL ASSESSMENT. CALL LIGHT IN REACH. WILL CONTINUE WITH PLAN OF CARE. STILL REFUSES SCDs.
[2017-06-24 20:00] VITALS: BP 120/67
--- NOTE | 2017-06-24 20:00 | NUR ---
ASSESSMENT PER FLOWSHEET. IV PATENT RT FOREARM OF 1/2NS INFUSING AT 50CC'S/HR SITE CLEAR HEAVY TRUCK DRIVER OF DILAUDID IN USE WITH SETTINGS AT 0.2MG Q10MIN W/4MG Q4H L/O. SR UP X2 CALL LIGHT WITHIN REACH.
--- NOTE | 2017-06-24 21:30 | NUR ---
MEDS GIVEN PER MAR. MASYQ=[id number] NO COVERAGE NEEDED.
--- NOTE | 2017-06-24 22:00 | NUR ---
AWAKE ALERT WATCHING TV
--- NOTE | 2017-06-25 00:35 | NUR ---
C/O BREAKTHROUGH PAIN HIP AREA. RATES PAIN LEVEL #6 PERCOCET 10 TAB ONE PO GIVEN FOR PAIN CONTROL.
--- NOTE | 2017-06-25 02:21 | NUR ---
EYES CLOSED RESPIRATIONS WITH EASE AND UNLABORED.
[2017-06-25 04:00] VITALS: BP 112/61
--- NOTE | 2017-06-25 04:00 | NUR ---
EYES CLOSED RESPIRATIONS WITH EASE AND UNLABORED.
--- NOTE | 2017-06-25 06:00 | NUR ---
MEDS GIVEN PER MAR. KAGD=[id number] NO COVERAGE NEEDED. MEDS GIVEN PER MAR.
--- NOTE | 2017-06-25 07:30 | NUR ---
RECIEVED PT DURING WALKING ROUNDS. PT RESTING IN BED WITH COMPLAINTS OF PAIN OF A 6 ON A SCALE OF 1-10. BROADCAST TECHNICIAN IN USE. ASSESSMENT DONE PER FLOWSHEET. BED IN LOW POSITION AND CALL LIGHT WITHIN REACH. WILL CONTINUE TO MONITOR.
[2017-06-25 07:50] VITALS: BP 118/70
--- NOTE | 2017-06-25 09:04 | NUR ---
Patient Name: ROSEMARY KEY Admission Status: Urgent Accout number: [id number] Admission Date: 06-23-2017 : 1955 Admission Diagnosis: Attending: LANDON KELLEY Current LOS: 2 Anticipated DC Date: 06-30-2017 Planned Disposition: Home with Home Health Primary Insurance: [employer] CHOICE PPO [facility] Discharge Planning Comments: CM MET WITH PATIENT REGARDING D/C NEEDS AND PLANS. PATIENT STATED HE LIVES WITH HIS (SAMPSON) AND SHE OR FAMILY WILL DRIVE HIM HOME AT DISCHARGE. PATIENT STATED HE HAS 1 STEP W/O RAILS TO ENTER HOME AND NO STAIRS INSIDE. PATIENT IS PARTIAL DEPENDENT OF HIS CARE. PATIENTS HELPS WITH BATH AND DRESSING AT TIMES. PATIENT HAS A WALKER, WHEELCHAIR, CANE, GLUCOMETER, AND BS COMMODE AT HOME. PATIENT CHECKS HIS SUGAR 2X DAILY. PATIENTS PCP IS DR. SCHOFIELD AND [facility]ARMAC[facility] [address] [facility]. PATIENT IS CURRENT WITH [facility]. CM WILL CONTINUE TO FOLLOW PATIENT WITH D/C NEEDS AND PLANS. [facility]CP DR[facility]WAL [facility] [address] [phone] [place] [phone] [email or web address] [facility] [phone] Per Diem: Rosalie Andrade Is the patient Alert and Oriented? Yes 0 * How many steps to enter\exit or inside your home? 1 0 * PCP DR. SCHOFIELD 0 * Pharmacy [facility] [address] * Preadmission Environment Home with Family 0 * ADLs Partial Dependent 0 * Partial ADLs (Assistance needed) Ambulation Bathing Dressing 0 * Equipment Bedside Commode Cane Walker Wheelchair 0 * List name and contact numbers for known caregivers / representatives who currently or will assist patient after discharge: SAMPSON () [phone] 0 * Community resources currently utilized Home Health 0 * Please name any agencies selected above. [facility] 0 * Additional services required to return to the preadmission environment? Yes 0 * Can the patient safely return to the preadmission environment? Yes 0 * Has this patient been hospitalized within the prior 30 days at any hospital? Yes 0 Grand Total: 0
[2017-06-25 12:11] VITALS: BP 123/80
--- NOTE | 2017-06-25 12:20 | NUR ---
URINE SPECIMEN SENT TO LAB PER ORDER AT THIS TIME. PT RESTING IN BED WITH NO COMPLAINTS OF PAIN OR DISCOMFORT. BED IN LOW POSITION AND CALL LIGHT WITHIN REACH. WILL CONTINUE TO MONITOR.
[2017-06-25 12:57] LABS: APPEARANCE CLEAR (CLEAR); BILIRUBIN NEGATIVE (NEGATIVE); COLOR YELLOW (YELLOW); GLUCOSE 1000 mg/dL (NEGATIVE); KETONE NEGATIVE (NEGATIVE); NITRITE NEGATIVE (NEGATIVE); PROTEIN NEGATIVE (NEGATIVE); SPECIFIC GRAVITY 1.015 (1.005-1.020); UROBILINOGEN NORMAL (NORMAL)
[2017-06-25 15:48] VITALS: BP 107/66
[2017-06-25 20:00] VITALS: BP 105/54
--- NOTE | 2017-06-25 20:00 | NUR ---
ASSESSMENT PER FLOWSHEET. IV PATENT RT ARM OF 1/2NS AT 50CC'S/HR SITE CLEAR STATION GATEMAN OF DILAUDID IN USE FOR PAIN CONTROL. SETTINGS AT 0.2MG Q10 MIN W/4MG Q4HR L/O. GOOD PAIN CONTROL NOTED DRSG TO LEFT HIP C/D/I WITH STERI STRIPS IN PLACE. SR UP X2 CALL LIGHT WITHINREACH.
--- NOTE | 2017-06-25 21:15 | NUR ---
MEDS GIVEN PER MAR. AADQ=[id number] NO COVERAGE NEEDED.
[2017-06-26] VITALS (12 sets, daily range): BP systolic 116–141; BP diastolic 55–85
--- NOTE | 2017-06-26 | NUR ---
NPO FOR SURGERY IN AM.
--- NOTE | 2017-06-26 02:00 | NUR ---
EYES CLOSED RESPIRATIONS WITH EASE AND UNLABORED.
--- NOTE | 2017-06-26 04:45 | NUR ---
LAB DRAWN AWAKE PERMITS FOR SURGERY SIGNED/WITNESSED AND ON CHART.
[2017-06-26 05:16] LABS: BASOPHILS 0.4 % (0-2); EOSINOPHILS 6.6 % (0-7); HEMATOCRIT 28.5 % (42.0-54.0); HEMOGLOBIN 9.5 g/dL (13.5-17.5); LYMPHOCYTES 44.6 % (15-50); MCH 24.7 pg (26.0-34.0); MCHC 33.3 g/dL (31.0-37.0); MCV 74.2 fL (80.0-100.0); MEAN PLATELET VOLUME 8.5 fL (7.4-10.4); NEUTROPHILS 42.4 % (40-80); PLATELET COUNT 359 10x3/uL (130-400); RBC 3.84 10x6/uL (4.20-6.10); RDW 14.5 % (11.5-14.5); WBC 4.8 10x3/uL (4.8-10.8)
[2017-06-26 05:31] LABS: INR 0.96 (0.85-1.17); PROTIME 12.6 SECONDS (11.6-15.0)
[2017-06-26 05:38] LABS: ALKALINE PHOSPHATASE 72 U/L (46-116); ALT (SGPT) 14 U/L (10-68); CALC OSMOLALITY 282 mosm/kg (275-300); CALCIUM 8.7 mg/dL (8.5-10.1); CHLORIDE - SERUM 107 mmol/L (98-107); CREATININE - SERUM 0.9 mg/dL (0.6-1.3); SODIUM 143 mmol/L (136-145); UREA NITROGEN 12 mg/dL (7-18); eGFR NON AFRICAN AMERICAN > 90 mL/min (90-120)
[2017-06-26 05:42] LABS: GLUCOSE 61 mg/dL (74-106)
--- NOTE | 2017-06-26 05:43 | NUR ---
RESTING QUIETLY NO CHANGES IN ASSESSMENT.
--- NOTE | 2017-06-26 07:09 | NUR ---
REPORT RECEIVED FROM DIE PRESSER NURSE. CALL LIGHT IN REACH.
--- NOTE | 2017-06-26 09:25 | NUR ---
ASSESSMENT COMPLETED. BP MEDS AND CYMBALTA WITH SIP OF WATER. REFUSES SCDs. CALL LIGHT IN REACH. WILL CONTINUE WITH PLAN OF CARE.
--- NOTE | 2017-06-26 11:30 | NUR ---
PATIENT IN LOW MCCAIN POSITION RESTING WITH EYES CLOSED. RESPIRATIONS EVEN AND UNLABORED. SIDE RAILS UP X2. BED IN LOW POSITION. CALL LIGHT IN REACH.
--- NOTE | 2017-06-26 12:31 | NUR ---
PREOP MEDS ADMINISTERD. BLOOD SUGAR 65. 1/2AMP OF D50 IV.
--- NOTE | 2017-06-26 13:35 | NUR ---
TAKEN TO OR HOLDING AREA AT THIS TIME.
--- NOTE | 2017-06-26 14:56 | NUR ---
STILL IN OR AT THIS TIME
--- NOTE | 2017-06-26 15:57 | NUR ---
IV TUBING CHANGED PER HOSPITAL POLICY.
--- NOTE | 2017-06-26 16:43 | NUR ---
PATIENT STATES THAT HIS FEET ITCH. NO RASH NOTED. CONSULTED ANESTHESIA. VERBAL ORDERS RECEIVED FOR BENADRYL 25MG TO BE GIVEN X1 IN PACU.
--- NOTE | 2017-06-26 17:05 | NUR ---
RECEIVED TO ROOM FROM RECOVERY ROOM VIA BED. HIDE GRADER BACK IN USE. VOIDED 300 CC URINE. AT BEDSIDE. CALL LIGHT IN REACH.
--- NOTE | 2017-06-26 17:34 | NUR ---
TORADOL 30 MG SIVP. METFORMIN 500 MG PO. EATING SUPPER AT THIS TIME. CALL LIGHT IN REACH.
--- NOTE | 2017-06-26 18:25 | NUR ---
STATES PAIN HAS INCREASED TO A 10. PERCOCET PO. NO OTHER CHANGES IN INITIAL ASSESSMENT. CALL LIGHT IN REACH. IN ROOM. STILL REFUSES SCDs. WILL CONTINUE WITH PLAN OF CARE.
--- NOTE | 2017-06-26 20:00 | NUR ---
ASSESSMENT PER FLOWSHEET. SR UP X2 CALL LIGHT WITHIN REACH. WOUND VAC TO LEFT HIP INCISION PATENT C/D/I. IV PATENT RT FOREARM OF 1/2NS AT 50CC'S/HR SITE CLEAR AERIAL APPLICATOR PILOT OF DILAUDID IN USE WITH SETTINGS AT 0.2MG Q10MIN W/4MG Q4HR L/O. SCD TO RT LE.
--- NOTE | 2017-06-26 21:15 | NUR ---
COZX=160 HUMALOG INSULIN 2 UNITS GIVEN SUBC PER S/S.
--- NOTE | 2017-06-26 23:00 | NUR ---
EATING SANDWICH TRAY AND DRINKING APPLE JUICE.
--- NOTE | 2017-06-27 00:04 | NUR ---
C/O BACK PAIN REPOSITIONED IN BED. PERCOCET TAB ONE PO GIVEN FOR RELIEF OF BACK PAIN. INCISION IS NOT HURTING BUT HIS CHRONIC BACK ACHE IS HURTING.
[2017-06-27 01:23] VITALS: BP 123/60
--- NOTE | 2017-06-27 04:03 | NUR ---
C/O PAIN IN LOWER BACK TORADOL 30MG IVP GIVEN FOR PAIN CONTROL. C/O BEING COLD BLANKETS APPLIED TO PATIENT.
[2017-06-27 06:05] LABS: HEMATOCRIT 28.3 % (42.0-54.0); HEMOGLOBIN 9.4 g/dL (13.5-17.5); MCH 24.5 pg (26.0-34.0); MCHC 33.2 g/dL (31.0-37.0); MCV 73.7 fL (80.0-100.0); MEAN PLATELET VOLUME 8.7 fL (7.4-10.4); RBC 3.84 10x6/uL (4.20-6.10); RDW 14.6 % (11.5-14.5); WBC 5.1 10x3/uL (4.8-10.8)
[2017-06-27 06:42] VITALS: BP 111/58
--- NOTE | 2017-06-27 08:18 | NUR ---
AWAKE AND ALERT. ORIENTED X3. LUNGS ARE CLEAR BILATERALLY, NO COUGH NOTED. SKIN IS INTACT WITHOUT REDNESS EXCEPT INCISION TO LEFT HIP WHICH HAS A WOUND VAC IN PLACE WITH SEROUS SANGUINESS DRAINAGE NOTED. IV TO RIGHT FOREARM IS PATNET IWTHOUT REDNESS AT INSERTION SITE. DENIES NEEDS.
[2017-06-27 08:20] VITALS: BP 93/60
--- NOTE | 2017-06-27 10:15 | OP ---
PATIENT NAME: ROSEMARY KEY MEDICAL RECORD: [id number] :55 LOCATION:[facility] ADMISSION DATE:06/23/17 SURGEON: LANDON KELLEY MD DATE OF OPERATION: 06/26/2017 PREOPERATIVE DIAGNOSIS: Left hip dislocation. POSTOPERATIVE DIAGNOSIS: Left hip dislocation. PROCEDURE: Revision left total hip arthroplasty. SURGEON: Landon Kelley MD ANESTHESIA: General. INTRAOPERATIVE COMPLICATIONS: None. SUMMARY OF PATHOLOGIC FINDINGS: Whether from moving, spinning, or from placement, the patient's hip was in too much anteversion and required rotation of approximately 15 degrees of retroversion to be stabilized. This required disarticulating the religion modular system and revising the proximal aspect. ESTIMATED BLOOD LOSS: 300 cc. OPERATIVE SUMMARY IN DETAIL: After obtaining the appropriate preoperative orthopedic surgery consent as well as anesthetic consultation, evaluation and clearance, the patient was brought to the operating room and placed on the operating table in supine position. After general laryngeal mask was administered, the patient was placed in right lateral decubitus position. All pressure points were well padded to include down leg peroneal pad as well as axillary roll. The patient was held firmly to the operating table using the vacuum pack suction system. Left lower extremity and hip were then prepped and draped in routine sterile fashion. Previously utilized incision was taken down to the level of the IT band, which was then further taken down. The gluteus minimus and medius were identified. These were reflected. The hip prosthesis with it was identified. It was dislocated at this time. It was relocated, taken through range of motion and found to dislocate while taking the femur and external rotation at approximately 25 degrees. The proximal body of the religion modular system was removed and trial was undertaken with multiple degrees of version. It was found that the best version was slightly retroverted, although the cup is not inverted. Once it was determined, the appropriate degree of version, a new 25 mm proximal body stem was tamped into place on the Chan taper, tightened, and then a standard 36 head was put into place. The hip was reduced. It was taken through range of motion several times and found to be stable. I will, however, put him in an abduction pillow fracture precaution. At this point, the wound was copiously irrigated. The gluteus medius and minimus were reapproximated back to the greater trochanter. The IT band was closed. All of this was done with #5 Ethibond followed by a deep fat layer closure with #2 Ethibond followed by #1 Vicryl, 2-0 Vicryl and skin noe. Please note intraoperative radiographs were taken and showed good position and placement of components without dislocation. The patient was awakened, taken to recovery room in stable condition. All final needle and sponge counts were correct. TRANSINT:[id number] Voice Confirmation ID: [id number] DOCUMENT ID: [id number] OPERATIVE REPORT [id number] ROSEMARY KEY MD, LANDON REIS at 1015 CC: [id number] DICTATION DATE: 06/26/17 155 GROUP SOCIAL WORKER: 06/26/17 2159 ADM IN [facility] [address] [place] [address]
--- NOTE | 2017-06-27 12:00 | NUR ---
FSBS 103. NO COVERAGE REQUIRED. LUNCH SERVED IN ROOM BUT REFUSED TO EAT AT THIS TIME.
--- NOTE | 2017-06-27 12:00 | NUR ---
TEMP UP TO 102.9. GIVEN 650MG TYLENOL PO FOR SAME. WILL MONITOR.
[2017-06-27 12:12] VITALS: BP 123/65
--- NOTE | 2017-06-27 12:15 | NUR ---
TEMP 101.2. DR KELLEY AND PROTER HERE. NEW ORERS RECEIVED.
--- NOTE | 2017-06-27 13:04 | NUR ---
TEMP 102.8 ORAL. PORTER BARKER NOTIFIED OF SAME. NO NEW ORDERS AT THIS TIME. WILL CONTINUE TO MONITOR.
[2017-06-27 16:01] VITALS: BP 118/58
--- NOTE | 2017-06-27 17:00 | NUR ---
FSBS 69. C/O NOT FEELING HIMSELF. GIVEN JUICE AND PB WITH CRACKERS. ENCOURAGED TO EAT. WILL MONITOR..
--- NOTE | 2017-06-27 18:00 | NUR ---
ATE ABOUT HALF OF SUPPER REPORTS FEELING MUCH BETTER NOW. METFORMIN HELD FOR LOW BLOOD SUGAR.
--- NOTE | 2017-06-27 19:00 | NUR ---
REPORT RECEIVED AND CARE OF PT ASSUMED. PT LYING IN SEMI MCCAIN'S POSITION WITH EYES CLSOED. ABD BRACE IN PLACE ON LEFT HIP. IV IN RIGHT FA PATENT WITH 1/2 NS INFUSING AT 30 ML / HR. TRASH COLLECTOR / DILAUDID IN USE FOR PAIN CONTROL. WILL MONITOR CLOSLEY FOR NEEDS.
--- NOTE | 2017-06-27 19:20 | NUR ---
FAMILY MEMBERS HERE WITH FAST FOOD FOR PT...AWAKENED HIM AND HE IS NOW SITTING UP ON THE SIDE OF THE BED EATING.
[2017-06-27 20:00] VITALS: BP 116/55; BP 135/82
--- NOTE | 2017-06-27 20:50 | NUR ---
HS MEDICATIONS GIVEN. FSBS 168 THIS CHECK REQUIRING COVERAGE WITH 2 UNITS OF INSULIN PER SLIDING SCALE. PERCOCET PO GIVEN PER REQUEST FOR PAIN. WILL CONTINUE TO MONITOR FOR NEEDS.
[2017-06-28] VITALS: BP 106/53
--- NOTE | 2017-06-28 00:29 | NUR ---
PT RESTING IN SEMI MCCAIN'S POSITION, PROPPED ONTO LEFT SIDE WITH PILLOWS. EUYES CLOSED AND UNLABORED BREATING. WILL CONTINUE TO MONITOR FOR NEEDS.
[2017-06-28 04:00] VITALS: BP 106/46
[2017-06-28 06:14] LABS: HEMATOCRIT 24.3 % (42.0-54.0); HEMOGLOBIN 8.2 g/dL (13.5-17.5); MCH 24.6 pg (26.0-34.0); MCHC 33.7 g/dL (31.0-37.0); MEAN PLATELET VOLUME 8.4 fL (7.4-10.4); RBC 3.33 10x6/uL (4.20-6.10); RDW 14.9 % (11.5-14.5)
[2017-06-28 06:19] LABS: WBC 6.6 10x3/uL (4.8-10.8)
[2017-06-28 07:02] VITALS: BP 114/58
--- NOTE | 2017-06-28 07:15 | NUR ---
REPORT RECEIVED FROM REGISTRATION OFFICER NURSE. CALL LIGHT IN REACH.
--- NOTE | 2017-06-28 08:20 | NUR ---
SITTING ON SIDE OF BED AT THIS TIME. NO DISTRESS NOTED. CALL LIGHT IN REACH.
--- NOTE | 2017-06-28 10:51 | NUR ---
ASSESSMENT COMPLETED. PERCOCET PO WITH AM MEDS ADMINISTERED. REFUSES SCDs. IV TO RIGHT FOREARM DC'D WITH TIP INTACT D/T SWELLING, PAIN, AND KNOT. AT BEDSIDE. CALL LIGHT IN REACH. WILL CONTINUE WITH PLAN OF CARE.
[2017-06-28 11:07] VITALS: BP 165/92
--- NOTE | 2017-06-28 12:07 | NUR ---
HUMALOG 2 UNITS SUBQ FOR BS OF 197 PER MARQUEZ PAPPAS.
--- NOTE | 2017-06-28 13:02 | NUR ---
HUMALOG 2 UNITS SUBQ FOR BS OF 197 PER WALESKA PAPPAS.
--- NOTE | 2017-06-28 13:40 | NUR ---
PATIENT SITTING UP IN BED EATING SHERBERT AT THIS TIME. NO COMPLAINTS OR SIGNS OF DISTRESS. CALL LIGHT WITHIN REACH.
--- NOTE | 2017-06-28 15:00 | NUR ---
FAMILY AT BEDSIDE. DENIES NEEDS. CALL LIGHT IN REACH.
[2017-06-28 16:15] VITALS: BP 126/80
--- NOTE | 2017-06-28 16:15 | NUR ---
PRBC INITIATED @ 125 CC/HR VIA PUMP. VSS. CALL LIGHT IN REACH. PERCOCET PO.
[2017-06-28 20:00] VITALS: BP 108/71; BP 117/51
[2017-06-29] VITALS: BP 116/64
[2017-06-29 04:00] VITALS: BP 121/64
[2017-06-29 06:45] LABS: HEMATOCRIT 28.1 % (42.0-54.0); HEMOGLOBIN 9.5 g/dL (13.5-17.5); MCH 25.1 pg (26.0-34.0); MCHC 33.8 g/dL (31.0-37.0); MCV 74.3 fL (80.0-100.0); MEAN PLATELET VOLUME 8.5 fL (7.4-10.4); RBC 3.78 10x6/uL (4.20-6.10); WBC 5.9 10x3/uL (4.8-10.8)
[2017-06-29 07:08] LABS: CALC OSMOLALITY 274 mosm/kg (275-300); CALCIUM 8.6 mg/dL (8.5-10.1); CHLORIDE - SERUM 104 mmol/L (98-107); CREATININE - SERUM 0.9 mg/dL (0.6-1.3); POTASSIUM - SERUM 3.7 mmol/L (3.5-5.1); SODIUM 139 mmol/L (136-145); UREA NITROGEN 10 mg/dL (7-18); eGFR NON AFRICAN AMERICAN > 90 mL/min (90-120)
[2017-06-29 07:12] LABS: GLUCOSE 64 mg/dL (74-106)
--- NOTE | 2017-06-29 07:15 | NUR ---
REPORT RECEIVED FROM SENIOR STAFF CONSULTANT NURSE. CALL LIGHT IN REACH.
--- NOTE | 2017-06-29 09:20 | NUR ---
ASSESSMENT COMPLETED. CALL LIGHT IN REACH. REFUSES SCDs. WILL CONTINUE WITH PLAN OF CARE.
[2017-06-29 09:48] VITALS: BP 120/64
--- NOTE | 2017-06-29 11:27 | NUR ---
PERCOCET PO WITH AM MES ADMINISTERED. FSBS 88. NO COVERAGE REQUIRED. CALL LIGHT IN REACH.
--- NOTE | 2017-06-29 11:37 | NUR ---
REHAB PRESCREENING Rehab referral received and chart reviewed. Mr. Partida is well known to our rehab as he was a patient there mid April. He has [employer] as his insurance provider which requires pre-authorization. OT Evaluation has been ordered. Rehab will begin authorization process as soon as OT Evaluation is completed. Thank you for this referral! Roseann Tesfaye, CYLINDER INSPECTOR AND TESTER Rehab Cementer Machine Applicator
[2017-06-29 12:05] VITALS: BP 140/68
--- NOTE | 2017-06-29 13:10 | NUR ---
NO NEEDS VOICED AT THIS TIME. CALL LIGHT IN REACH.
--- NOTE | 2017-06-29 13:20 | NUR ---
NO NEEDS VOICED AT THIS TIME. IN ROOM. CALL LIGHT IN REACH.
--- NOTE | 2017-06-29 14:21 | NUR ---
NYSTATIN PO. CALL LIGHT IN REACH.
--- NOTE | 2017-06-29 14:50 | NUR ---
WATCHING TV AT THIS TIME. NO NEEDS VOICED. CALL LIGHT IN REACH.
--- NOTE | 2017-06-29 15:50 | NUR ---
DENIES NEEDS. CALL LIGHT IN REACH.
--- NOTE | 2017-06-29 17:28 | NUR ---
METFORMIN, NYSTATIN, AND PERCOCET PO. IV TUBING CHANGED PER HOSPITAL POLICY, BLOOD SUGAR 122.
--- NOTE | 2017-06-29 18:45 | NUR ---
NO CHANGES IN INITIAL ASSESSMENT. CALL LIGHT IN REACH. WILL CONTINUE WITH PLAN OF CARE.
[2017-06-29 20:00] VITALS: BP 113/45
--- NOTE | 2017-06-29 21:00 | NUR ---
ROTOR BALANCER REPORTED BP113/45. PATIENT STATED HE WAS SITTING ON THE BEDSIDE. RETOOKED AT 2045 BP132/64 WHILE LAYING DOWN.
[2017-06-30] VITALS: BP 138/63
--- NOTE | 2017-06-30 02:56 | NUR ---
PATIENT WOKE UP CONFUSED AND DISORIENTATED. PIV WAS SEEN LAYING ON THE FLOOR. 22G CATH WAS INTACT ON INSPECTION. NEW 22G PIV PLACED IN LEFT FOREARM. IV FLUIDS RESTARTED. NO NEEDS NOTED AT REORIENTATED.
[2017-06-30 04:00] VITALS: BP 136/59
--- NOTE | 2017-06-30 04:34 | NUR ---
RN NOTE: PT RESTING QUIETLY IN SEMI MCCAIN'S POSITION WITH EYES CLOSED. IV PATENT. BRACE IN PLACE. CALL LIGHT WITHIN [facility].
--- NOTE | 2017-06-30 06:20 | NUR ---
240mL OJ GIVEN FOR FSBG AT 62
[2017-06-30 06:41] LABS: HEMATOCRIT 27.3 % (42.0-54.0); HEMOGLOBIN 9.2 g/dL (13.5-17.5); MCH 24.8 pg (26.0-34.0); MCHC 33.7 g/dL (31.0-37.0); MCV 73.6 fL (80.0-100.0); MEAN PLATELET VOLUME 8.7 fL (7.4-10.4); RBC 3.71 10x6/uL (4.20-6.10); RDW 15.2 % (11.5-14.5); WBC 5.1 10x3/uL (4.8-10.8)
[2017-06-30 06:56] LABS: CALC OSMOLALITY 274 mosm/kg (275-300); CALCIUM 8.3 mg/dL (8.5-10.1); CARBON DIOXIDE 27.2 mmol/L (21.0-32.0); CHLORIDE - SERUM 102 mmol/L (98-107); GLUCOSE 70 mg/dL (74-106); POTASSIUM - SERUM 3.8 mmol/L (3.5-5.1); SODIUM 139 mmol/L (136-145); UREA NITROGEN 11 mg/dL (7-18); eGFR NON AFRICAN AMERICAN 81 mL/min (90-120)
[2017-06-30 08:21] VITALS: BP 108/53
--- NOTE | 2017-06-30 08:52 | NUR ---
SCHEDULED MEDICATIONS ADMINISTERED AT THIS TIME. TAKEN WITHOUT DIFFICULTY. PT REFUSES LANTUS. DENIES NEEDS AT THIS TIME. CALL LIGHT IN REACH, WILL CONTINUE WITH PLAN OF CARE.
--- NOTE | 2017-06-30 10:55 | NUR ---
ASSISTED TO WHEELCHAIR SO THAT CAN PUSH PATIENT AROUND TO GET SOME FRESH AIR.
--- NOTE | 2017-06-30 12:25 | NUR ---
RE-CONNECTED TO SHIFT COMMANDER AT THIS TIME. PAIN 03/31. PT'S ASSISTED HIM WITH A BED BATH.
--- NOTE | 2017-06-30 17:35 | NUR ---
OT NOTE: PT COMPLETED BUE AROM AXS FOR INCREASED AX TOLERANCE. PT COMPLETED BED MOB AND SIT TO STANDS WITH CGA. THANK YOU, RAJEEV LESLIE/Jong
[2017-06-30 20:00] VITALS: BP 102/60
--- NOTE | 2017-06-30 20:00 | NUR ---
ASSESSMENT PER FLOWSHEET. IV PATENT LEFT FOREARM OF 1/2NS AT 30CC'S/HR SITE CLEAR SUGAR SAMPLER OF DILAUDID IN USE WITH SETTINGS AT 0.2MG Q10MIN W/4MG Q4HR L/O. WOUND VAC PATENT TO LEFT HIP. HIP BRACE IN PLACE.
--- NOTE | 2017-06-30 21:15 | NUR ---
UP TO BSC WITH HIP. HAD LARGE SOFT FORMED BROWN STOOL. CLEANDED AND ASSISTED BACK TO BED SR UPX2 CALL LIGHT WITHIN REACH.
--- NOTE | 2017-06-30 21:51 | NUR ---
C/O INCISIONAL PAIN PERCOCET TAB ONE PO GIVEN FOR PAIN CONTROL.UIFU=872 NO COVERAGE NEEDED LANTUS ALSO HELD.
--- NOTE | 2017-07-01 00:42 | NUR ---
EYES CLOSED RESPIRATIONS WITH EASE AND UNLABORED.
--- NOTE | 2017-07-01 03:00 | NUR ---
EYES CLOSED RESPIRATIONS WITH EASE AND UNLABORED.
[2017-07-01 04:00] VITALS: BP 110/66
--- NOTE | 2017-07-01 04:55 | NUR ---
VOIDS IN URINAL. DENIES NEEDS.
[2017-07-01 05:40] LABS: HEMATOCRIT 26.9 % (42.0-54.0); HEMOGLOBIN 9.1 g/dL (13.5-17.5); MCH 25.1 pg (26.0-34.0); MCHC 33.8 g/dL (31.0-37.0); MCV 74.1 fL (80.0-100.0); MEAN PLATELET VOLUME 8.4 fL (7.4-10.4); RBC 3.63 10x6/uL (4.20-6.10); RDW 15.3 % (11.5-14.5); WBC 5.1 10x3/uL (4.8-10.8)
--- NOTE | 2017-07-01 07:15 | NUR ---
REPORT RECEIVED FROM NONPROFIT FINANCIAL CONTROLLER NURSE. CALL LIGHT IN REACH.
[2017-07-01 08:30] VITALS: BP 148/69
--- NOTE | 2017-07-01 09:05 | NUR ---
ASSESSMENT. TO BSC AND BACK TO BED. LARGE BM NOTED. CALL LIGHT IN REACH. WILL CONTINUE WITH PLAN OF CARE.
--- NOTE | 2017-07-01 10:00 | NUR ---
PATIENT SITTING UP ON SIDE OF BED ALERT. NO SIGNS OF DISTRESS NOTED. BED IN LOW POSITION. CALL LIGHT IN REACH.
--- NOTE | 2017-07-01 10:21 | NUR ---
AM MEDS ADMINISTERED. PERCOCET PO. CALL LIGHT IN REACH. STILL REFUSES SCDs. CALL LIGHT IN REACH. WILL CONTINUE WITH PLAN OF CARE.
--- NOTE | 2017-07-01 12:12 | NUR ---
RIDING IN WC WITH . NOW BACK IN ROOM. FSBS 177 BUT REFUSES INSULIN. NYSTATIN PO. NO OTHER NEEDS VOICED AT THIS TIME. CALL LIGHT IN REACH.
--- NOTE | 2017-07-01 14:14 | NUR ---
OT NOTE: PT REPORTED FEELING BETTER TODAY. PT ABLE TO USE RW TO GET TO BS COMMODE. PT REPORTS THAT HE WOULD STILL LIKE TO GO TO IN PATIENT REHAB TO RECEIVE MUCH THERAPY POSSIBLE IN ATTEMPTS TO PREVENT ANY DAMAGE TO NEW HIP PROSTHESIS. I AGREE WITH PT. HE IS ABLE TO USE WALKER WITHIN ROOM FOR VERY SHORT DISTANCES, BUT STILL HAS DIFFICULTY MANEUVERING AROUND ROOM. ALSO REQUIRES EXT ASSIST FOR LE DRESSING AND GEN WEAKNESS IN UEs AND LE'S.
--- NOTE | 2017-07-01 14:24 | NUR ---
NO NEEDS VOICED AT THIS TIME. CALL LIGHT IN REACH.
[2017-07-01 15:07] VITALS: BP 102/52
--- NOTE | 2017-07-01 15:50 | NUR ---
AT BEDSIDE. DENIES NEEDS AT THIS TIME. CALL LIGHT IN REACH.
--- NOTE | 2017-07-01 17:23 | NUR ---
PERCOCET AND METFORMIN PO. FSBS 140. NO COVERAGE REQUIRED. CALL LIGHT IN REACH.
--- NOTE | 2017-07-01 17:27 | NUR ---
OT NOTE: PT COMPLETED DYNAMIC SITTING BALANCE WITH SBA. PT COMPLETED SIT TO STAND WITH CGA. PT COMPLETED TRICEP EXS FOR INCREASED I WITH SIT TO STANDS. THANK YOU, RAJEEV LESLIE/Jong
--- NOTE | 2017-07-01 18:05 | NUR ---
NO CHANGES IN INITIAL ASSESSMENT COMPLETED. STILL REFUSES SCDs. CALL LIGHT IN REACH. WILL CONTINUE WITH PLAN OF CARE.
[2017-07-01 20:00] VITALS: BP 122/63
[2017-07-02 04:00] VITALS: BP 112/60
--- NOTE | 2017-07-02 07:15 | NUR ---
REPORT RECEIVED FROM WHOLESALE AND RETAIL MERCHANT NURSE. CALL LIGHT IN REACH.
[2017-07-02 08:11] VITALS: BP 105/56
--- NOTE | 2017-07-02 09:20 | NUR ---
ASSESSMENT COMPLETED. REFUSES SCDs. CALL LIGHT IN REACH. WILL CONTINUE WITH PLAN OF CARE.
--- NOTE | 2017-07-02 09:34 | NUR ---
CM REASSESSMENT NOTE; IP REHAB WAITING ON INSURANCE FOR APPROVAL SINCE FRIDAY
--- NOTE | 2017-07-02 09:58 | NUR ---
PATIENT SITTING UP ON SIDE OF BED ALERT. NO SIGNS OF DISTRESS NOTED. BED IN LOW POSITION. CALL LIGHT IN REACH.
--- NOTE | 2017-07-02 11:11 | NUR ---
PERCOCET PO WITH AM MEDS ADMINISTERED. CALL LIGHT IN REACH.
--- NOTE | 2017-07-02 12:29 | NUR ---
FSBS 145 SO NO COVERAGE REQUIRED.
--- NOTE | 2017-07-02 12:32 | NUR ---
NUTRITION F/U CHART REVIEWED. PT TOLERATING REG DIET WITH 100% INTAKE RECENT MEALS. CONTINUES TO BE ASSESSED AT LOW NUTRITIONAL RISK. RD FOLLOWING
[2017-07-02 12:35] VITALS: BP 109/62
--- NOTE | 2017-07-02 14:20 | NUR ---
IN CHAIR AT THIS TIME. CALL LIGHT IN REACH.
--- NOTE | 2017-07-02 15:44 | NUR ---
CM REASSESSMENT NOTE: PATIENT WAS DENIED IP REHAB AND POTRER TERRAZAS WITH DR. KELLEY WAS NOTIFIED AND WAS ASKED TO CALL FOR A PEER TO PEER WITH [facility] FOR PATIENT. PATIENT CALLED [facility] HIMSELF AND THEY STATED FOR HIS DOCTOR TO CALL WITH PEER TO PEER.
--- NOTE | 2017-07-02 16:35 | NUR ---
BLOOD SUGAR 72. PERCOCET AND METFORMIN PO. MAT TESTER DC'D. IV SL'D.
--- NOTE | 2017-07-02 16:44 | NUR ---
CM REASSESSMENT NOTE: CM REC. CALL FROM PORTER TERRAZAS AND SHE WILL DO THE PEER TO PEER FOR PATIENT.
[2017-07-02 17:27] VITALS: BP 158/62
--- NOTE | 2017-07-02 18:50 | NUR ---
NO CHANGES IN INITIAL ASSESSMENT. CALL LIGHT IN REACH. WILL CONTINUE WITH PLAN OF CARE.
--- NOTE | 2017-07-02 20:00 | NUR ---
ASSESSMENT PER FLOWSHEET. WOUND VAC TO LEFT HIP PATENT AND INTACT. IV PATENT LEFT ARM SALINE LOCKED. LEFT HIP BRACE ON. TRANSFERED OUT OF BED INTO W/C. TOOK HIM OUTSIDE.
--- NOTE | 2017-07-02 22:00 | NUR ---
RETURNS TO ROOM BACK IN BED VOIDED IN URINAL. REQUESTING PAIN PILL. PERCOCET 10 TAB ONE PO GIVEN FOR PAIN CONTROL.
--- NOTE | 2017-07-02 22:00 | NUR ---
SNNJ=[id number]. NO COVERAGE NEEDED. PT DOES WANT HIS LANTUS ROUTINE DOSE GIVEN.
--- NOTE | 2017-07-02 23:41 | NUR ---
REQUESTING PILL FOR ITCHING. BENADRYL 25MG PO GIVEN FOR ITCHING.
[2017-07-03] VITALS: BP 106/60; BP 111/62
--- NOTE | 2017-07-03 01:00 | NUR ---
EYES CLOSED RESPIRATIONS WITH EASE.
[2017-07-03 04:00] VITALS: BP 111/62
--- NOTE | 2017-07-03 04:30 | NUR ---
AWAKE SITTING ON SIDE OF BED VOIDS WELL.
--- NOTE | 2017-07-03 06:00 | NUR ---
DRINKING COFFEE MEDS GIVEN PER NOV QBUL=[id number]. NO COVERAGE
--- NOTE | 2017-07-03 07:15 | NUR ---
REPORT RECEIVED. CALL LIGHT IN REACH.
--- NOTE | 2017-07-03 08:21 | NUR ---
ASSESSMENT COMPLETED. PERCOCET PO WITH AM MEDS ADMINISTERED. REFUSES INVOKANA. REFUSES SCDs. EATING BREAKFAST. CALL LIGHT IN REACH. WILL CONTINUE WITH PLAN OF CARE.
[2017-07-03] MEDS ORDERED: ELIQUIS2.5 MG PO (08:23)
[2017-07-03] MEDS ORDERED: PERCOCET 10/3251 TA1 PO (08:24)
[2017-07-03 08:55] VITALS: BP 142/84
[2017-07-03 09:01] VITALS: BP 103/50
--- NOTE | 2017-07-03 10:20 | NUR ---
RESTING WITH EYES CLOSED. RESP EVEN AND UNLABORED. CALL LIGHT IN REACH.
[2017-07-03 11:29] VITALS: BP 110/56
--- NOTE | 2017-07-03 12:55 | NUR ---
NYSTATIN. HAS ALREADY EATEN SO WILL DO BS NEXT TIME.
--- NOTE | 2017-07-03 13:50 | NUR ---
DENIES NEEDS AT THIS TIME. CALL LIGHT IN REACH
--- NOTE | 2017-07-03 14:21 | NUR ---
CM REASSESSMENT NOTE: PATIENT IS DISCHARGING HOME TODAY. PATIENT CURRENT WITH [employer]. PATIENTS IS DRIVING HIM HOME AND HE HAS NO OTHER NEEDS FOR DISCHARGE. IMM SERVED
--- NOTE | 2017-07-03 14:35 | NUR ---
Rehab Note- The patient was denied an acute inpatient rehab stay from [facility]. The patient called [facility] for an appeal for a peer to peer and the peer to peer was also denied because the patient's needs can be met at a lower level of care at a SNF facility. Will notify ELISA Wiggins. Thank you for this referral! Meghan Lopez RN Clinical Liaison, [facility] Rehab
--- NOTE | 2017-07-03 15:50 | NUR ---
IV DC'D WITH TIP INTACT.
--- NOTE | 2017-07-03 16:15 | NUR ---
WILL DC HOME TODAY. DENIES ANY NEEDS AT THIS TIME.
--- NOTE | 2017-07-03 16:29 | NUR ---
DC INSTRUCTIONS EXPLAINED TO PATIENT AND . RXs FR ELIQUIS AND PERCOCET GIVEN TO PATIENT. DC'D TO VEHICLE VIA WC WITH .
== END 2017-07-03 16:29 | disposition home health service (06) | DRG 467 ==
LOC: D.MS 14:29
PROVIDERS: ADMIT Orthopaedic Surgery
PROC: 0SPS0JZ Removal of Synthetic Substitute from Left Hip Joint, Femoral Surface, Open Approach (ICD-10-PCS; 2017-06-26)
PROC: 0SRS0JZ Replacement of Left Hip Joint, Femoral Surface with Synthetic Substitute, Open Approach (ICD-10-PCS; principal; 2017-06-26 13:00)
DX: T84.021A Dislocation of internal left hip prosthesis, initial encounter (principal); D62 Acute posthemorrhagic anemia; E11.40 Type 2 diabetes mellitus with diabetic neuropathy, unspecified; B19.20 Unspecified viral hepatitis C without hepatic coma; E03.9 Hypothyroidism, unspecified; E78.5 Hyperlipidemia, unspecified; K59.00 Constipation, unspecified

== ENCOUNTER 2017-08-22 08:56 | Inpatient (IN) | payer MEDICARE ==
[~2017-08-22] VITALS: Ht 185.4 cm; Wt 135.9 kg
[2017-08-22 09:38] LABS: HEMATOCRIT 31.5 % (42.0-54.0); HEMOGLOBIN 10.1 g/dL (13.5-17.5); LYMPHOCYTES 40.8 % (15-50); MCH 21.8 pg (26.0-34.0); MCHC 32.1 g/dL (31.0-37.0); MEAN PLATELET VOLUME 7.8 fL (7.4-10.4); NEUTROPHILS 49.5 % (40-80); PLATELET COUNT 314 10x3/uL (130-400); RBC 4.63 10x6/uL (4.20-6.10); RDW 17.4 % (11.5-14.5); WBC 5.5 10x3/uL (4.8-10.8)
[2017-08-22 09:46] LABS: INR 1.05 (0.85-1.17); PROTIME 13.3 SECONDS (11.6-15.0)
[2017-08-22 09:47] LABS: APTT 33.6 SECONDS (22.8-39.4)
[2017-08-22 10:00] LABS: ALBUMIN 3.1 g/dL (3.4-5.0); ALKALINE PHOSPHATASE 84 U/L (46-116); ALT (SGPT) 8 U/L (10-68); BILIRUBIN - TOTAL 0.28 mg/dL (0.2-1.3); CALC OSMOLALITY 279 mosm/kg (275-300); CALCIUM 8.7 mg/dL (8.5-10.1); CARBON DIOXIDE 25.7 mmol/L (21.0-32.0); CHLORIDE - SERUM 106 mmol/L (98-107); CREATININE - SERUM 0.9 mg/dL (0.6-1.3); GLUCOSE 95 mg/dL (74-106); PROTEIN - SERUM 7.8 g/dL (6.4-8.2); SODIUM 140 mmol/L (136-145); UREA NITROGEN 15 mg/dL (7-18); eGFR NON AFRICAN AMERICAN > 90 mL/min (90-120)
--- NOTE | 2017-08-22 17:15 | NUR ---
TO ROOM 2223 FROM ER VIA WHEELCHAIR,PT WITHOUT DISTRESS.ORIENTATION TO ROOM.CALL LIGHT IN REACH
--- NOTE | 2017-08-22 18:30 | NUR ---
ASSESSMENT PER FLOW SHEET.PT WITHOUT DISTRESS.CALL LIGHT IN REACH
[2017-08-22] MEDS ORDERED: ELIQUIS2.5 MG PO (18:36)
[2017-08-22] MEDS ORDERED: MOBIC7.5 MG PO (18:37)
[2017-08-22] MEDS ORDERED: PERCOCET 10/3251 TA1 PO (18:39)
[2017-08-22 18:50] VITALS: BP 117/59; BMI 39.5
--- NOTE | 2017-08-22 19:49 | NUR ---
PATIENT STATED HIS EYES, ROOF OF HIS MOUTH AND TONGUE ARE BURNING, HE STATED IT STARTED RIGHT AFTER THE VANCOMYCIN STARTING. VANCOMYCIN TURNED OFF. CALLED , HE SAID TO GIVE BENADRYL AND D/C THE VANCOMYCIN.
[2017-08-22 21:28] VITALS: BP 136/85
[2017-08-22 21:35] VITALS: BP 119/76
[2017-08-22 23:15] VITALS: BP 121/67
[2017-08-23] VITALS (8 sets, daily range): BP systolic 109–159; BP diastolic 42–79
[2017-08-23 05:32] LABS: HEMATOCRIT 28.8 % (42.0-54.0); HEMOGLOBIN 9.5 g/dL (13.5-17.5); MCH 22.2 pg (26.0-34.0); MCV 67.4 fL (80.0-100.0); MEAN PLATELET VOLUME 8.9 fL (7.4-10.4); PLATELET COUNT 276 10x3/uL (130-400); RBC 4.27 10x6/uL (4.20-6.10); RDW 16.8 % (11.5-14.5); WBC 5.9 10x3/uL (4.8-10.8)
[2017-08-23 05:49] LABS: ALBUMIN 2.8 g/dL (3.4-5.0); ALKALINE PHOSPHATASE 92 U/L (46-116); ALT (SGPT) 9 U/L (10-68); BILIRUBIN - TOTAL 0.19 mg/dL (0.2-1.3); C-REACTIVE PROTEIN 1.7 mg/dL (0.0-0.9); CALC OSMOLALITY 288 mosm/kg (275-300); CALCIUM 8.4 mg/dL (8.5-10.1); CARBON DIOXIDE 27.2 mmol/L (21.0-32.0); CHLORIDE - SERUM 106 mmol/L (98-107); POTASSIUM - SERUM 3.6 mmol/L (3.5-5.1); PROTEIN - SERUM 7.1 g/dL (6.4-8.2); SODIUM 141 mmol/L (136-145); UREA NITROGEN 17 mg/dL (7-18); eGFR NON AFRICAN AMERICAN 81 mL/min (90-120)
[2017-08-23 05:50] LABS: EOSINOPHILS 7 % (0-7); LYMPHOCYTES 26 % (15-50); MONOCYTES 6 % (2-11); NEUTROPHILS 61 % (40-80); PLATELET ESTIMATE NORMAL
[2017-08-23 05:56] LABS: GLUCOSE 207 mg/dL (74-106)
[2017-08-23 06:41] LABS: ERYTHROCYTE SEDIMENTATION RATE 38 mm/hr (0-20)
--- NOTE | 2017-08-23 10:35 | NUR ---
RESTING QUIETLY IN BED. COMPANY AT BEDSIDE. DENIES ANY NEEDS AT THIS TIME.
--- NOTE | 2017-08-23 11:16 | NUR ---
REC'D LYING IN BED ALERT AND ORIENTED X4. DENIED PAIN AT THIS TIME. IS COMPLAINING OF ITCHING. WILL ADMIN MEDS PRESCRIBED. DENIED FURTHER NEEDS AT THIS TIME. INSTRUCTED TO ALL IF NEEDED ANYTHING, VERBALIZED UNDERSTANDING. BED LOW, LOCKED CALL LIGHT IN REACH. WILL CONT TO MONITOR.
[2017-08-24 01:42] VITALS: BP 128/68
--- NOTE | 2017-08-24 04:29 | NUR ---
NO CHANGES WITH PATIENT SINCE ASSESSMENT. 2 PAIN MEDICATIONS GIVEN DURING SHIFT. DRESSING CHANGED AROUND 9PM PER REQUEST. HE REPORTED THAT IT HASN'T BEEN CHANGED IN A FEW DAYS. STERILE 4x4 AND ABD PAD USED FOR BANDAGE. YELLOW DRAINAGE NOTED WITH MODERATE AMOUNT OF DRAINAGE.
--- NOTE | 2017-08-24 04:45 | NUR ---
PT RESTING QUIETLY, EYES CLOSED. RESP EVEN, UNLABORED. NO DISTRESS NOTED. CONTINUE WET AND DRY SUGAR BIN OPERATOR'S PLAN OF CARE.
[2017-08-24 05:22] VITALS: BP 109/67
--- NOTE | 2017-08-24 07:48 | NUR ---
REC'D LYING IN BED. ALERT AND ORIENTED X4. DENIED PAIN AT THIS TIME. DENIED NEEDS AT THIS TIME. INSTRUCTED TO CALL IF NEEDED ANYTHING, VERBLAIZED UNDERSTANDING. NO DISTRESS NOTED. BED LOW, LOCKED, CALL LIGHT IN REACH. WILL CONT TO MONITOR.
[2017-08-24 09:03] VITALS: BP 120/72
[2017-08-24 21:07] VITALS: BP 122/66
[2017-08-24 23:49] VITALS: BP 113/59
--- NOTE | 2017-08-25 03:56 | NUR ---
PATIENT RESTING IN BED WITH EYES CLOSED AND NO VISIBLE SIGNS OF DISTRESS. BED IN LOWEST POSITION AND CALL LIGHT WITHIN REACH.
[2017-08-25 03:59] VITALS: BP 110/50
--- NOTE | 2017-08-25 07:40 | NUR ---
PT HERE FOR LEFT HIP SEROMA IV TO LEFT HAND PATENT AND INTACT AT THIS TIME SRX2 BED AT LOWEST SETTING CALL LIGHT WITHIN REACH WILL CONTINUE TO MONITOR
--- NOTE | 2017-08-25 07:45 | NUR ---
PT SITTING UP ON SIDE FO BED YELLING AT STAFF STATS IM LEAVING THIS PLACE IF SOMEONE DONT TELL ME WITH IN AN HOUR WHEN IM GOING TO SURGERY. SPOKE WITH BLAS CLEMONS APN SHE STATES THAT SHE WOULD COME SPEAK WITH PT DRESIING INTACT TO LEFT HIP
[2017-08-25 08:02] VITALS: BP 113/46
--- NOTE | 2017-08-25 10:15 | NUR ---
Patient Name: ROSEMARY KEY Admission Status: ER Accout number: [id number] Admission Date: 08-22-2017 : 1955 Admission Diagnosis: Attending: MIKE SOSA Current LOS: 3 Anticipated DC Date: 08-30-2017 Planned Disposition: Home Primary Insurance: [employer] CHOICE PPO MCR ADVANT Discharge Planning Comments: CM MET WITH PATIENT REGARDING D/C NEEDS AND PLANS. PATIENT STATED HE LIVES WITH HIS (SAMPSON) AND SHE WILL DRIVE HIM HOME AT DISCHARGE. PATIENT STATED THERE ARE NO STEPS OR STAIRS AT HIS HOME. PATIENT IS INDEPENDENT WITH HIS CARE AND HAS A WALKER, CANE, WHEELCHAIR, SHOWER CHAIR, AND GLUCOMETER AT HOME. PATIENTS PCP IS DR. SCHOFIELD AND PHARMACY IS [facility] ON [address] PATIENT IS REFUSING HOME HEALTH AT THIS TIME. CM WILL CONTINUE TO FOLLOW PATIENT WITH D/C NEEDS AND PLANS. PCP DR. [facility]ANWAL [facility] [address] [phone] SAMPSON () [phone] Head Of Visual Merchandising: Rosalie Andrade Is the patient Alert and Oriented? Yes 0 * How many steps to enter\exit or inside your home? 0 0 * PCP DR. SCHOFIELD 0 * Pharmacy [facility] ON [address] 0 * Preadmission Environment Home with Family 0 * ADLs Independent 0 * Equipment Cane Glucometer Shower Chair Walker Wheelchair 0 * List name and contact numbers for known caregivers / representatives who currently or will assist patient after discharge: SAMPSON () [phone] * Community resources currently utilized None 0 * Additional services required to return to the preadmission environment? Yes 0 * Can the patient safely return to the preadmission environment? Yes 0 * Has this patient been hospitalized within the prior 30 days at any hospital? No 0 Grand Total: 0
[2017-08-25 12:20] VITALS: BP 117/45
--- NOTE | 2017-08-25 14:00 | NUR ---
PT TO OR AT THIS TIME PER TRANSPORT TEAM
--- NOTE | 2017-08-25 18:00 | NUR ---
PT CAME INTO RECOVERY VOICING THE NEED TO "i NEED TO POOP". I VOICED THAT WE COULD PUT THE PATIENT ON A BEDPAN BECASUE WE DO NOT HAVE A BATHROOM IN RECOVERY. PT VOICED"NO I CAN HOLD IT TILL I GET TO MY ROOM.
--- NOTE | 2017-08-25 18:30 | NUR ---
PT RETURNED TO ROOM FROM RECOVERY ROOM AWAKE AND ALERT WOUND VAC TO LEFT HIP VS WNL
[2017-08-25 20:00] VITALS: BP 129/71
--- NOTE | 2017-08-25 20:01 | NUR ---
PT LYING IN BED AWAKE, ALERT, ASKING FOR FOOD. PT STATES HE WANTS 3 CHOCOLATE PUDDINGS AND 2 APPLE JUICE. WE ARE OUT OF CHOCOLATE PUDDING AT THIS TIME. PT DID ACCEPT VANILLA PUDDING X 3, A TURKEY SANDWICH WITH GRAPES AND 2 APPLE JUICES. PT DENIES ANY OTHER NEEDS. WILL CONTINUE TO MONITOR CLOSELY. BED LOW, CALL LIGHT IN REACH, SIDE RAILS X 2, HOB 35-40 DEGREES.
--- NOTE | 2017-08-26 00:14 | NUR ---
PT HAS CALLED SEVERAL TIMES ASKING ME TO CALL DR. KELLEY FOR AN ORDER FOR A HEAD OF STOCK PUMP, STATING HIS PAIN IS POORLY CONTROLLED WITH PO PERCOCET. PT IS ALSO ASKING IF HE CAN AMBULATE AND WANTING TO GO OUTSIDE TO SMOKE. PT HAS BEEN NOTIFIED THAT HE CANNOT LEAVE THE FLOOR AT THIS TIME R/T THE NEWLY PLACED WOUND VAC TO HIS LEFT HIP. PT DENIES ANY OTHER NEEDS. PT STATES HE WILL ALSO WAIT UNTIL THE PHYSICIANS ROUND IN THE A.M. TO ASK ABOUT THE HEAD OF STOCK PUMP.
--- NOTE | 2017-08-26 03:49 | NUR ---
PT CALLING AGAIN FOR PAIN MEDICATION, STATES THE PRN OXYCODONE IS NOT HELPING WITH HIS PAIN. I EXPLAINED THAT IT WAS EARLY, BUT THAT I WOULD BRING IT TO HIM @ THE NEXT EARLIEST TIME OF 04:15. PT IS ALSO COUGHING, STATES HIS CHEST IS BURNING, BUT THE COUGH IS UNPRODUCTIVE. PT IS ASKING FOR COUGH MEDICINE. I EXPLAINED TO PT THAT I NEED TO CALL THE PHYSICIAN FOR AN ORDER, IN WHICH PT STATES NOT TO CALL, THAT HE WILL TALK WITH THEM WHEN THEY ROUND. PT IS ASKING WHEN HE WILL BE DISCHARGED. I EXPLAINED THERE ARE NO DEFINITE ORDERS YET. I DID GET PT COFFEE, IN HOPES THE HEAT WILL HELP WITH THE COUGH AND CHEST DISCOMFORT. NO OTHER NEEDS. CONTINUE TO MONITOR CLOSELY.
[2017-08-26 04:00] VITALS: BP 132/66
--- NOTE | 2017-08-26 08:35 | NUR ---
PT IS SITTING ON SIDE OF BED, STATED UP ALL NIGHT DUE TO PAIN. WANTED TO HAVE PAIN MEDICATION INCREASED, ADVISED PT TO SPEAK WITH DR WHEN THEY MAKE THEIR ROUNDS. PT WANTED TO GO OUTSIDE, ADVISED PT TO WAIT UNTIL AFTER BREAKFAST AND MEDS TO MAKE SURE HE FEELS ALRIGHT, BED IN LOW POSITION, CL IN REACH
[2017-08-26 08:41] VITALS: BP 121/61
[2017-08-26 09:16] LABS: BASOPHILS 0.3 % (0-2); EOSINOPHILS 5.7 % (0-7); HEMATOCRIT 30.4 % (42.0-54.0); HEMOGLOBIN 9.7 g/dL (13.5-17.5); IMMATURE GRANULOCYTES 0.2 % (0-5); LYMPHOCYTES 41.3 % (15-50); MCH 21.7 pg (26.0-34.0); MCHC 31.9 g/dL (31.0-37.0); MCV 68.2 fL (80.0-100.0); MEAN PLATELET VOLUME 8.5 fL (7.4-10.4); MONOCYTES 7.2 % (2-11); NEUTROPHILS 45.3 % (40-80); PLATELET COUNT 265 10x3/uL (130-400); RBC 4.46 10x6/uL (4.20-6.10); RDW 16.9 % (11.5-14.5)
[2017-08-26 09:35] LABS: CALC OSMOLALITY 275 mosm/kg (275-300); CALCIUM 8.2 mg/dL (8.5-10.1); CHLORIDE - SERUM 105 mmol/L (98-107); CREATININE - SERUM 0.9 mg/dL (0.6-1.3); SODIUM 138 mmol/L (136-145); UREA NITROGEN 9 mg/dL (7-18); eGFR NON AFRICAN AMERICAN > 90 mL/min (90-120)
[2017-08-26 09:52] LABS: GLUCOSE 108 mg/dL (74-106)
--- NOTE | 2017-08-26 10:29 | NUR ---
TO VISIT.PT WITHOUT DISTRESS.
[2017-08-26 11:55] VITALS: BP 113/67
[2017-08-26 15:34] VITALS: BP 132/69
[2017-08-26 19:43] VITALS: Ht 185.4 cm; Wt 135.9 kg
[2017-08-26 20:00] VITALS: BP 131/69
--- NOTE | 2017-08-26 20:00 | NUR ---
ASSESSMENT PER FLOWSHEET. IV SALINE LOCK TO LEFT FOREARM. WOUND VAC TO LEFT HIP INCISION INTACT WITH GOOD SUCTION. DENIES NEEDS. SR UP X2 CALL LIGHT WITHIN REACH.
--- NOTE | 2017-08-26 21:00 | NUR ---
MEDS GIVEN PER MAR.
--- NOTE | 2017-08-26 22:00 | NUR ---
OUT OF BED INTO W/C AND PT WENT OUTSIDE.
--- NOTE | 2017-08-26 23:00 | NUR ---
RETURNS TO ROOM TO BED VOIDS WELL IN URINAL.
[2017-08-27] VITALS: BP 144/77
--- NOTE | 2017-08-27 | NUR ---
RESTING QUIETLY IN BED DENIES NEEDS.
--- NOTE | 2017-08-27 01:56 | NUR ---
C/O BREAKTHROUGH PAIN IN LEFT HIP INCISION/WOUND VAC SITE. PERCOCET 10 TAB ONE PO GIVEN FOR PAIN CONTROL.
[2017-08-27 04:00] VITALS: BP 131/74
--- NOTE | 2017-08-27 04:30 | NUR ---
EYES CLOSED RESPIRATIONS WITH EASE AND UNLAOBRED.
--- NOTE | 2017-08-27 05:45 | NUR ---
OUT OF BED INTO W/C MEDS GIVEN PER NOV. PATIENT FIXING HIS COFFEE AND HEADED OUTSIDE PER W/C.
--- NOTE | 2017-08-27 07:24 | NUR ---
PT LYING IN BED, STATED WOKE UP AT 5 AND HAS BEEN UP SINCE, TAPE AROUND WOUND VAC IS IRRITATING SKIN, REQUESTED BENEDRYL THIS MORNING WITH MORNING MEDS. BED IN LOW POSITION, CALL LIGHT IN REACH, PT STATED NO BM IN 3 DAYS. HYPOACTIVE BOWEL SOUNDS, ABD SOFT, NOT TENDER. CONTINUE WITH PLAN OF CARE
[2017-08-27 07:31] LABS: ALBUMIN 2.8 g/dL (3.4-5.0); ALKALINE PHOSPHATASE 87 U/L (46-116); ALT (SGPT) 9 U/L (10-68); CALC OSMOLALITY 279 mosm/kg (275-300); CALCIUM 8.3 mg/dL (8.5-10.1); CARBON DIOXIDE 27.6 mmol/L (21.0-32.0); CHLORIDE - SERUM 106 mmol/L (98-107); CREATININE - SERUM 0.9 mg/dL (0.6-1.3); GLUCOSE 97 mg/dL (74-106); POTASSIUM - SERUM 4.1 mmol/L (3.5-5.1); PROTEIN - SERUM 6.6 g/dL (6.4-8.2); SODIUM 141 mmol/L (136-145); UREA NITROGEN 9 mg/dL (7-18); eGFR NON AFRICAN AMERICAN > 90 mL/min (90-120)
--- NOTE | 2017-08-27 09:01 | NUR ---
PATIENT IN BED WITH NO COMPLAINTS AT THIS TIME. IV INTACT. CALL LIGHT WITHIN REACH.
[2017-08-27 09:31] VITALS: BP 119/63
[2017-08-27 11:33] VITALS: BP 136/64
--- NOTE | 2017-08-27 13:28 | NUR ---
CM REASSESSMENT NOTE: CM ORDERED A WOUND VAC FROM [facility]- [facility], [facility] DOES NOT ACCEPT [employer]. [place] WITH [facility] IS HANDLING THE ORDER FOR THE WOUND VAC. PATIENT SIGNED THE CECY FORM WITH [employer] [facility].
--- NOTE | 2017-08-27 16:27 | NUR ---
Wound vac dressing change to surgical incision on left hip. Wound measures 7cm x 2.5cm x 3cm x 3.5cm tunnel at 12 oclock. The wound bed is red with granulation noted. Small Serosanguinous drainage noted with no odor. Wound is very tender to touch. No muscle, tendon or bone noted. 2 pieces of black foam used for dressing. Settings: -125mmhg low continuous. Pt tolerated well.
[2017-08-27 16:34] VITALS: BP 109/56
[2017-08-27 20:00] VITALS: BP 143/81
--- NOTE | 2017-08-27 20:00 | NUR ---
ASSESSMENT PER FLOWSHEET. SALINE LOCK PATENT LEFT FOREARM. WOUND VAC IN PLACE LEFT HIP. PT SITTING ON SIDE OF BED SR UP X2 CALL LIGHT WITHIN REACH. USES URINAL TO VOID INTO.
--- NOTE | 2017-08-27 21:15 | NUR ---
MEDS GIVEN PER NOV. XIDO=[id number]. LANTUS DOSE GIVEN SUBC TO RT DELTOID.
--- NOTE | 2017-08-27 23:51 | NUR ---
RESTING QUIETLY DENIES NEEDS
[2017-08-28] VITALS: BP 126/87
--- NOTE | 2017-08-28 03:21 | NUR ---
AWAKE C/O PAIN LEFT HIP WOUND VAC SITE. RATES PAIN LEVEL #6. PERCOCET 10 TAB ONE PO GIVEN FOR PAIN CONTROL.
[2017-08-28 04:00] VITALS: BP 140/90
[2017-08-28 07:58] VITALS: BP 124/71
--- NOTE | 2017-08-28 08:36 | NUR ---
SCHEDULED MEDICATIONS ADMINISTERED AT THIS TIME WITHOUT DIFFICULTIES. DENIES NEEDS AT THIS TIME. CALL LIGHT IN REACH, WILL CONTINUE WITH PLAN OF CARE.
--- NOTE | 2017-08-28 11:00 | NUR ---
PRN NORCO ADMINISTERED AT THIS TIME FOR PAIN.
[2017-08-28 12:11] VITALS: BP 122/70
[2017-08-28 15:42] VITALS: BP 128/67
--- NOTE | 2017-08-28 19:00 | NUR ---
REPORT RECEIVED AND CARE OF PT ASSUMED. PT LYING IN SUPINE POSITION WATCHING TV. IV IN LEFT FA SALINE LOCKED. WOUND VAC ON LEFT HIP WELL COMPRESSED WITH NO LEAKAGE ALARMS. WILL MONITOR CLOSELY FOR NEEDS.
--- NOTE | 2017-08-28 20:25 | NUR ---
HS SNACK OF CHOCOLATE PUDDING X2, ANDREW CRACKERS, AND CHOCOLATE MILK PER REQUEST. WILL CONTINUE TO MONITOR FOR NEEDS.
--- NOTE | 2017-08-28 20:30 | NUR ---
HS MEDICATIONS GIVEN. FSBS 184 THIS CHECK. GAVE SCHEDULED LANTUS 40 UNITS PER ORDER. WILL CONTINUE TO MONTIOR FOR NEEDS.
[2017-08-28 21:49] VITALS: BP 143/80
[2017-08-29 01:03] VITALS: BP 150/61
--- NOTE | 2017-08-29 01:56 | NUR ---
GAVE PT PERCOCET 10 FOR PAIN AT LEVEL 7/10 PER REQUEST. WILL MONITOR FOR EFFECTIVENESS.
[2017-08-29 05:24] VITALS: BP 134/75
[2017-08-29 05:42] LABS: BASOPHILS 0.2 % (0-2); EOSINOPHILS 6.2 % (0-7); HEMATOCRIT 29.9 % (42.0-54.0); HEMOGLOBIN 9.6 g/dL (13.5-17.5); MCH 21.9 pg (26.0-34.0); MCHC 32.1 g/dL (31.0-37.0); MCV 68.3 fL (80.0-100.0); MEAN PLATELET VOLUME 8.7 fL (7.4-10.4); MONOCYTES 7.3 % (2-11); NEUTROPHILS 42.3 % (40-80); PLATELET COUNT 290 10x3/uL (130-400); RBC 4.38 10x6/uL (4.20-6.10); RDW 16.9 % (11.5-14.5); WBC 5.8 10x3/uL (4.8-10.8)
[2017-08-29 06:07] LABS: C-REACTIVE PROTEIN 2.2 mg/dL (0.0-0.9); CALC OSMOLALITY 280 mosm/kg (275-300); CALCIUM 8.5 mg/dL (8.5-10.1); CARBON DIOXIDE 29.7 mmol/L (21.0-32.0); CHLORIDE - SERUM 105 mmol/L (98-107); CREATININE - SERUM 0.9 mg/dL (0.6-1.3); GLUCOSE 82 mg/dL (74-106); POTASSIUM - SERUM 3.8 mmol/L (3.5-5.1); SODIUM 142 mmol/L (136-145); UREA NITROGEN 9 mg/dL (7-18); eGFR NON AFRICAN AMERICAN > 90 mL/min (90-120)
[2017-08-29 06:57] LABS: ERYTHROCYTE SEDIMENTATION RATE 43 mm/hr (0-20)
--- NOTE | 2017-08-29 08:00 | NUR ---
ASSESSMENT PER FLOW SHEET.PT WITHOUT DISTRESS. STATES WILL GET TO GO HOME TODAY.UP AT BEDSIDE.MONITOR
[2017-08-29 08:26] VITALS: BP 128/70
[2017-08-29] MEDS ORDERED: VIBRAMYCIN 100100 MG PO (09:15)
[2017-08-29] MEDS ORDERED: PERCOCET 10/3251 TA1 PO (09:19)
[2017-08-29] MEDS ORDERED: HYSINGLA ER20 MG PO (09:19)
--- NOTE | 2017-08-29 09:52 | NUR ---
CM REASSESSMENT NOTE: PATIENT IS DISCHARGING HOME TODAY WITH [facility]/FAMILY OR FRIEND DRIVING PATIENT HOME. IMM SERVED TODAY
--- NOTE | 2017-08-29 11:15 | NUR ---
PT OUT IN WHEELCHAIR,GOING OUT WITH FAMILY
--- NOTE | 2017-08-29 11:58 | NUR ---
BACK ON UNIT AND TO ROOM.
--- NOTE | 2017-08-29 13:58 | NUR ---
PAGE TO [facility]ARA WITH WOUND CARE FOR WOUND VAC CHANGE BEFORE DC HOME.
--- NOTE | 2017-08-29 14:45 | NUR ---
WOUND VAC DRESSING CHANGE USING BUSINESS SYSTEMS CONSULTANT.PT TOLERATED WELL.
--- NOTE | 2017-08-29 15:30 | NUR ---
IV DCD WITH CATH TIP INTACT.DISCHARGE INSTRUCTIONS,STATES UNDERSTANDING.
--- NOTE | 2017-08-29 15:34 | NUR ---
LEFT UNIT VIA WHEELCHAIR,FAMILY AT SIDE.
[2017-08-30 17:09] LABS: AEROBE ID Final report (())
--- NOTE | 2017-10-16 19:08 | OP ---
PATIENT NAME: ROSEMARY KEY MEDICAL RECORD: [id number] :55 LOCATION:D.MS [id number] ADMISSION DATE:08/22/17 SURGEON: LANDON KELLEY MD DATE OF OPERATION: 08/25/2017 PREOPERATIVE DIAGNOSIS: Wound to the left hip status post complex revision total hip arthroplasty. PREOPERATIVE DIAGNOSIS: Wound to the left hip status post complex revision total hip arthroplasty. PROCEDURES: 1. Excisional debridement of the wound to include skin, subcutaneous tissue, and portions of fat, fascia, muscle and bone. 2. Placement of a wound VAC. SURGEON: Landon Kelley MD ANESTHESIA: General. INTRAOPERATIVE COMPLICATIONS: None. SUMMARY OF PATHOLOGIC FINDINGS: The patient had an extensile wound that required excisional debridement. Measurements recorded intraoperatively approximately 17 x 8 x 6 with no undermining. The infection did not appear to involve the joint capsule and the area down to bone was minimal at best. This was curettaged and found to be relatively in good condition with bleeding periosteum. OPERATIVE SUMMARY IN DETAIL: After obtaining the appropriate preoperative orthopedic surgery consent as well as anesthetic consultation, evaluation and clearance, the patient was brought to the operating room and placed on the operating room table in the supine position. After adequate general laryngeal mask was administered, the patient was placed in a right lateral decubitus position. All pressure points were well padded to include down leg peroneal pad as well as axillary roll. The patient was held firmly to the operating table using the vacuum pack suction system along with the strap and belt system. The hip was prepped and draped in a routine sterile fashion. Excisional debridement was carried out along the bulbous area. Cultures were taken. The wound was also curettaged to the depths. Gentle probing did reveal that there was an area that did appear to go the lateral aspect of the femur, but with intense examination, there was no tracking to the hip joint itself. Having completed the curettage to bleeding soft tissues that is after excising portions of fat, fascia, muscle and bone, further pulsatile lavage irrigation was followed by complete drying and placement of a wound VAC system. Good seal was achieved at 125 mmHg on medium intensity. At this point, the patient was awakened and taken to the recovery room in stable condition. All final needle and sponge counts were correct. TRANSINT:[id number] Voice Confirmation ID: [id number] DOCUMENT ID: [id number] OPERATIVE REPORT [id number] ROSEMARY KEY MD, LANDON REIS at 1908 CC: [id number] DICTATION DATE: 10/16/17 1326 ORDER PROCESSING MANAGER: 10/16/17 1410 DIS IN 08/29/17 [place] [id number] [place] [id number]
== END 2017-08-29 15:34 | disposition home health service (06) | DRG 920 ==
LOC: D.ER 08:56 → D.MS 16:14 → D.SDCHOLD 08-25 15:56 → D.MS 08-25 16:04
PROVIDERS: Emergency Medicine; Orthopaedic Surgery; ADMIT Orthopaedic Surgery
PROC: 0Y9D0ZZ Drainage of Left Upper Leg, Open Approach (ICD-10-PCS; principal; 2017-08-22)
PROC: 0JCM0ZZ Extirpation of Matter from Left Upper Leg Subcutaneous Tissue and Fascia, Open Approach (ICD-10-PCS; 2017-08-25 15:30)
DX: L76.34 Postprocedural seroma of skin and subcutaneous tissue following other procedure (principal); M96.840 Postprocedural hematoma of a musculoskeletal structure following a musculoskeletal system procedure; Y83.8 Other surgical procedures as the cause of abnormal reaction of the patient, or of later complication, without mention of misadventure at the time of the procedure; Y82.8 Other medical devices associated with adverse incidents; E11.40 Type 2 diabetes mellitus with diabetic neuropathy, unspecified; B19.20 Unspecified viral hepatitis C without hepatic coma; E78.5 Hyperlipidemia, unspecified; E64.9 Sequelae of unspecified nutritional deficiency; M19.90 Unspecified osteoarthritis, unspecified site

== ENCOUNTER 2017-10-09 04:15 | Emergency (ER) | payer MEDICARE ==
[2017-08-26 19:43] VITALS: BMI 39.5
[~2017-10-09 04:15] MED LIST changes: +HYSINGLA ER20 MG PO; +VIBRAMYCIN 100100 MG PO
[2017-10-09 04:57] LABS: BASOPHILS 0.2 % (0-2); EOSINOPHILS 4.8 % (0-7); HEMATOCRIT 30.8 % (42.0-54.0); LYMPHOCYTES 35.2 % (15-50); MCH 21.6 pg (26.0-34.0); MCHC 32.5 g/dL (31.0-37.0); MCV 66.5 fL (80.0-100.0); MEAN PLATELET VOLUME 8.4 fL (7.4-10.4); MONOCYTES 10.1 % (2-11); NEUTROPHILS 49.7 % (40-80); PLATELET COUNT 306 10x3/uL (130-400); RBC 4.63 10x6/uL (4.20-6.10); RDW 17.4 % (11.5-14.5); WBC 4.8 10x3/uL (4.8-10.8)
[2017-10-09 05:14] LABS: ALBUMIN 3.3 g/dL (3.4-5.0); ALKALINE PHOSPHATASE 77 U/L (46-116); ALT (SGPT) 12 U/L (10-68); BILIRUBIN - TOTAL 0.21 mg/dL (0.2-1.3); CALC OSMOLALITY 275 mosm/kg (275-300); CARBON DIOXIDE 24.8 mmol/L (21.0-32.0); CHLORIDE - SERUM 101 mmol/L (98-107); POTASSIUM - SERUM 4.3 mmol/L (3.5-5.1); PROTEIN - SERUM 8.1 g/dL (6.4-8.2); SODIUM 136 mmol/L (136-145); UREA NITROGEN 16 mg/dL (7-18); eGFR NON AFRICAN AMERICAN 81 mL/min (90-120)
[2017-10-09 05:31] LABS: GLUCOSE 154 mg/dL (74-106)
== END 2017-10-09 07:50 | disposition left against medical advice (07) ==
LOC: D.ER 04:15
PROVIDERS: Family Medicine
DX: M79.604 Pain in right leg (principal)

== ENCOUNTER → 2017-10-13 10:06 | Outpatient (CLI) | payer MEDICARE ==
[2017-08-26 19:43] VITALS: BMI 39.5
[~2017-10-13 10:06] MED LIST changes: +BACTRIM 400-801 TAB PO; +DOXYCYCLINE HY100 M2 PO
== END | disposition home or self-care (01) ==
LOC: D.MRI 10:06
DX: R20.9 Unspecified disturbances of skin sensation (principal)

== ENCOUNTER → 2017-10-27 15:25 | Outpatient (CLI) | payer MEDICARE ==
[2017-10-24 14:02] LABS: BASOPHILS 0.3 % (0-2); EOSINOPHILS 3.7 % (0-7); HEMATOCRIT 31.1 % (42.0-54.0); HEMOGLOBIN 10.2 g/dL (13.5-17.5); IMMATURE GRANULOCYTES 0.3 % (0-5); LYMPHOCYTES 39.8 % (15-50); MCH 21.8 pg (26.0-34.0); MCHC 32.8 g/dL (31.0-37.0); MCV 66.6 fL (80.0-100.0); MEAN PLATELET VOLUME 8.3 fL (7.4-10.4); MONOCYTES 7.7 % (2-11); NEUTROPHILS 48.2 % (40-80); PLATELET COUNT 311 10x3/uL (130-400); RBC 4.67 10x6/uL (4.20-6.10); WBC 5.9 10x3/uL (4.8-10.8)
[2017-10-24 14:30] LABS: ANION GAP 13.8 mmol/L (8-16); CALCIUM 8.5 mg/dL (8.5-10.1); CARBON DIOXIDE 25.5 mmol/L (21.0-32.0); CREATININE - SERUM 1.1 mg/dL (0.6-1.3); POTASSIUM - SERUM 4.3 mmol/L (3.5-5.1)
[~2017-10-27] VITALS: Ht 185.4 cm; Wt 135.6 kg
[2017-10-27 11:16] VITALS: BP 132/72; Ht 185.4 cm; Wt 135.6 kg
== END | disposition home or self-care (01) ==
LOC: D.PAN 13:00 → EDSTATUS 13:00 → D.OPS 13:00
PROVIDERS: Anesthesiology
DX: T84.031A Mechanical loosening of internal left hip prosthetic joint, initial encounter (principal); S71.002A Unspecified open wound, left hip, initial encounter; M25.552 Pain in left hip; Z01.810 Encounter for preprocedural cardiovascular examination; Z01.811 Encounter for preprocedural respiratory examination; Z01.812 Encounter for preprocedural laboratory examination; Z53.9 Procedure and treatment not carried out, unspecified reason

== ENCOUNTER 2017-10-30 05:04 | Day surgery (SDC) | payer MEDICARE ==
[~2017-10-30] VITALS: Ht 185.4 cm; Wt 136.4 kg
--- NOTE | ~2017-10-30 | OP ---
PATIENT NAME: ROSEMARY KEY MEDICAL RECORD: [id number] :55 LOCATION:D.OPS ADMISSION DATE: SURGEON: LANDON KELLEY MD DATE OF OPERATION: 10/30/2017 PREOPERATIVE DIAGNOSES: Nonhealing wound of the left hip status post revision, left total hip arthroplasty. PREOPERATIVE DIAGNOSES: Nonhealing wound of the left hip status post revision, left total hip arthroplasty. PROCEDURES: 1. I&D of the nonhealing wound to include skin, subcutaneous tissue, portions of fat, fascia, muscle and bone, 20 cm in aggregate. 2. Application of wound VAC. SURGEON: Landon Kelley MD ANESTHESIA: General. INTRAOPERATIVE COMPLICATIONS: None. SUMMARY OF PATHOLOGIC FINDINGS: The sinus tract was opened up and it did go down to the greater trochanter, which had some granulation tissue over it; however, it was scraped to try and enhance healing. OPERATIVE SUMMARY IN DETAIL: After obtaining the appropriate preoperative orthopedic surgery consent as well as anesthetic consultation, evaluation and clearance, the patient was brought to the operating room and placed on the operating table in supine position. After general laryngeal mask was administered, the patient placed in a right lateral decubitus position. All pressure points were well padded to include down leg peroneal pad as well as axillary roll. The patient was held firmly to the operating table using the vacuum pack suction system. Left hip was prepped and draped in a routine sterile fashion. The packing had previously removed. The sinus tract was opened up and went down to the greater trochanter. At this point, incisional debridement was used with both the knife curettage as well as a rongeur to remove Ethibonds as well as any nonviable-appearing tissue or infectious tissue. Taken down to the lateral aspect of the trochanter and curettage was used to scrape into it and sight bleeding at this area. Copious bulb lavage was run through the wound. Cultures were then taken. Wound VAC was applied with appropriate pressure and sealed. The patient was then awakened and taken to recovery room in stable condition. All final needle and sponge counts were correct. TRANSINT:[id number] Voice Confirmation ID: [id number] DOCUMENT ID: [id number] OPERATIVE REPORT [id number] ROSEMARY KEY MD, LANDON REIS at 9891 CC: [id number] DICTATION DATE: 10/30/17 0754 CLINICAL DATA ABSTRACTOR: 10/30/[address] [facility] 10/30/17 [place] [id number] [place] [id number]
[~2017-10-30 05:04] MED LIST changes: -BACTRIM 400-801 TAB PO; -DOXYCYCLINE HY100 M2 PO
[2017-10-30 05:55] VITALS: BP 128/67; Ht 185.4 cm; Wt 136.4 kg
[2017-10-30 06:32] LABS: HEMATOCRIT 28.6 % (42.0-54.0); HEMOGLOBIN 9.2 g/dL (13.5-17.5); MCH 21.5 pg (26.0-34.0); MCHC 32.2 g/dL (31.0-37.0); MEAN PLATELET VOLUME 8.5 fL (7.4-10.4); RBC 4.27 10x6/uL (4.20-6.10); RDW 17.1 % (11.5-14.5); WBC 4.8 10x3/uL (4.8-10.8)
[2017-10-30] MEDS ORDERED: DOXYCYCLINE HY100 M2 PO (07:54)
[2017-10-30] MEDS ORDERED: BACTRIM 400-801 TAB PO (07:54)
[2017-11-04 16:16] LABS: AEROBE ID Preliminary report (()); RESULT 1 Gram positive rods (())
== END 2017-10-30 09:50 | disposition home or self-care (01) ==
LOC: D.OPS 05:04 → D.PAN 08:30 → D.OPS 08:30 → D.PAN 14:15 → D.OPS 14:15
PROVIDERS: Anesthesiology; Orthopaedic Surgery
DX: S71.002A Unspecified open wound, left hip, initial encounter (principal); T84.031A Mechanical loosening of internal left hip prosthetic joint, initial encounter; Z96.649 Presence of unspecified artificial hip joint; M25.552 Pain in left hip; F17.200 Nicotine dependence, unspecified, uncomplicated; I10 Essential (primary) hypertension; E11.9 Type 2 diabetes mellitus without complications; K21.9 Gastro-esophageal reflux disease without esophagitis; Z01.812 Encounter for preprocedural laboratory examination

== ENCOUNTER → 2017-12-15 16:21 | Outpatient (CLI) | payer MEDICARE ==
[2017-10-30 05:55] VITALS: BMI 39.6
[~2017-12-15 16:21] MED LIST changes: +BACTRIM 400-801 TAB PO; +DOXYCYCLINE HY100 M2 PO
== END | disposition home or self-care (01) ==
LOC: D.LABREF 16:21
DX: M25.552 Pain in left hip (principal)

== ENCOUNTER → 2017-12-30 11:03 | Outpatient (CLI) | payer MEDICARE ==
[2017-10-30 05:55] VITALS: BMI 39.6
== END | disposition home or self-care (01) ==
LOC: D.LABREF 11:03
DX: S71.002A Unspecified open wound, left hip, initial encounter (principal)

== ENCOUNTER → 2018-01-05 07:51 | Outpatient (CLI) | payer MEDICARE ==
[2017-10-30 05:55] VITALS: BMI 39.6
== END | disposition home or self-care (01) ==
LOC: D.NM 07:51
DX: M25.552 Pain in left hip (principal)

== ENCOUNTER → 2018-01-13 13:33 | Outpatient (CLI) | payer MEDICARE ==
[2017-10-30 05:55] VITALS: BMI 39.6
[2018-01-14 12:38] LABS: ERYTHROCYTE SEDIMENTATION RATE 43 mm/hr (0-20); HEMATOCRIT 29.9 % (42.0-54.0); HEMOGLOBIN 9.6 g/dL (13.5-17.5); MCH 21.9 pg (26.0-34.0); MCHC 32.1 g/dL (31.0-37.0); MCV 68.3 fL (80.0-100.0); MEAN PLATELET VOLUME 8.3 fL (7.4-10.4); NEUTROPHILS 48.4 % (40-80); PLATELET COUNT 235 10x3/uL (130-400); RBC 4.38 10x6/uL (4.20-6.10); RDW 17.5 % (11.5-14.5); WBC 5.9 10x3/uL (4.8-10.8)
[2018-01-14 12:39] LABS: BASOPHILS 0.5 % (0-2); EOSINOPHILS 4.7 % (0-7); LYMPHOCYTES 37.4 % (15-50); MONOCYTES 8.8 % (2-11)
[2018-01-14 12:40] LABS: IMMATURE GRANULOCYTES 0.2 % (0-5)
== END | disposition home or self-care (01) ==
LOC: D.LAB 13:33
PROVIDERS: Orthopaedic Surgery
DX: S71.002A Unspecified open wound, left hip, initial encounter (principal); X58.XXXA Exposure to other specified factors, initial encounter; Y93.89 Activity, other specified; Y92.89 Other specified places as the place of occurrence of the external cause

== ENCOUNTER → 2018-02-02 08:07 | Outpatient (CLI) | payer MEDICARE ==
[2017-10-30 05:55] VITALS: BMI 39.6
--- NOTE | ~2018-02-02 | HEMODYNAMI ---
PATIENT:ROSEMARY KEY MEDICAL RECORD: [id number] : 55 [id number] ADMISSION DATE: 02/02/18 Generatedon:02/02/20189:39 Patient name: ROSEMARY KEY Patient #: [id number] SSN: : 1955 Date of study: 02/02/2018 Page: Of Hemodynamic Procedure Report Patient Data Patient Demographics Procedure consent was obtained First Name: ROSEMARY Gender: Male Last Name: YESI : 1955 Middle Initial: SHREE Age: 62 year(s) Patient #: [id number] Race: Black Additional ID: [id number] Contact details [address]: [address] [place] [address] State: [place] City: [place] Zip code: [address] Admission Admission Data Admission Date: 02/02/2018 Admission Time: 8:07 Procedure Procedure Types Cath Procedure Peripheral Cath Diagnostic Procedure Miscellaneous Fistula Sinus Tract Procedure Description Procedure Date Procedure Date: 02/02/2018 Procedure Start Time: 9:29 Procedure Staff Name Function Jayme Wilks RT Monitor Geoff Castanon MD Performing Physician Mily Yost RT Scrub Blanquita Sim RN Nurse Procedure Data Cath Procedure Fluoroscopy Diagnostic fluoroscopy Total fluoroscopy Time: 1 time: 1 min min Diagnostic fluoroscopy Total fluoroscopy dose: 69 dose: 69 mGy mGy Contrast Material Contrast Material Type Amount (ml) Isovue 300 20 Hemodynamics Rest Pre Cath Intra NCS Post Cath Procedure Log Time Note 9:02:46 Time tracking: Regular hours (M-F 7:00 - 5:00) 9:02:58 Mily Yost RT (R) (CV) sent for patient. Start room use. 9:03:23 Signed procedure consent form obtained from patient. 9:03:28 Use device set PICC 9:03:33 Sterile Angiographic Pack opened to sterile field. 9:03:47 Patient received from Other to IR Alert and oriented. Tansferred to table in Supine position. 9:03:50 Pre-op teaching completed and patient verbalized understanding. 9:03:55 Patient pain scale 0/10 ?. 9:20:36 Left groin area was prepped with chlora-prep and draped in sterile fashion 9:20:37 --------ALL STOP TIME OUT------ 9:20:38 Final Timeout: patient, procedure, and site verified with staff and physician. All members of the team are in agreement. 9:20:44 Sedation plan: Local Anesthetic Medication:Lidocaine 9:22:36 Full Disclosure recording started 9:29:36 Procedure started. 9:30:15 DILATOR, VESSEL 8/20 opened to sterile field. 9:30:31 Procedure ended.(Physican Out) 9:30:48 Fluoroscopy time 01.00 minutes. 9:30:52 Fluoroscopy dose: 69 mGy 9:30:52 Flurop Dose total: 69 9:31:01 Contrast amount:Isovue 300 20ml. 9:31:03 Sharps counted by scrub and verified by R.N. 9:31:14 Post-op/insertion site Left hip dressed using a 4 x 4 and Tegaderm. 9:37:44 Procedure and supply charges have been captured, reviewed, submitted and are correct. 9:37:46 Post procedure instruction explained to patient.Patient verbalizes understanding. 9:37:48 Report given to Other. 9:37:51 Patient transfered to Other with Ambulatory. Device Usage Item Name Manufacture Quantity Catalog Hospital Part Current Minimal Lot# / Number Charge Number Stock Stock Serial# Code Sterile Freedom 1 [id number] 5 Angiographic Health Pack DILATOR, [facility] 1 [id number] 5 VESSEL 820 Signature Audit [place] Stage Time Signature Unsigned Intra-Procedure 02/02/2018 Mily 9:39:08 AM Priyank MISHRA (R) (CV) Signatures Monitor : Jayme Signature : Lashaun RT Date : Time : [facility] [address] [place] [id number]
[2018-02-09 17:10] LABS: AEROBE ID Final report (())
== END | disposition home or self-care (01) ==
LOC: D.RAD 08:07
PROVIDERS: Specialist
DX: S71.102S Unspecified open wound, left thigh, sequela (principal); X58.XXXA Exposure to other specified factors, initial encounter

== ENCOUNTER 2018-02-26 10:05 | Day surgery (SDC) | payer MEDICARE ==
[2018-02-25 15:46] LABS: BASOPHILS 0.1 % (0-2); EOSINOPHILS 2.4 % (0-7); HEMATOCRIT 30.6 % (42.0-54.0); HEMOGLOBIN 10.3 g/dL (13.5-17.5); IMMATURE GRANULOCYTES 0.1 % (0-5); MCH 22.8 pg (26.0-34.0); MCHC 33.7 g/dL (31.0-37.0); MCV 67.7 fL (80.0-100.0); MEAN PLATELET VOLUME 8.1 fL (7.4-10.4); MONOCYTES 8.2 % (2-11); NEUTROPHILS 53.2 % (40-80); PLATELET COUNT 249 10x3/uL (130-400); RBC 4.52 10x6/uL (4.20-6.10); RDW 16.3 % (11.5-14.5); WBC 6.7 10x3/uL (4.8-10.8)
[2018-02-25 15:57] LABS: APTT 33.5 SECONDS (22.8-39.4); INR 1.01 (0.85-1.17); PROTIME 12.9 SECONDS (11.6-15.0)
[2018-02-25 16:14] LABS: ANION GAP 11.1 mmol/L (8-16); BILIRUBIN - TOTAL 0.2 mg/dL (0.2-1.3); CALCIUM 8.8 mg/dL (8.5-10.1); CARBON DIOXIDE 27.9 mmol/L (21.0-32.0); CREATININE - SERUM 1.1 mg/dL (0.6-1.3); PROTEIN - SERUM 8.2 g/dL (6.4-8.2)
[~2018-02-26] VITALS: Ht 185.4 cm; Wt 136.1 kg
--- NOTE | ~2018-02-26 | OP ---
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 PROCEDURE: Excision of synovial cutaneous fistula with closure. SURGEON: Landon Kelley MD ANESTHESIA: General. INTRAOPERATIVE COMPLICATIONS: None. SUMMARY OF PATHOLOGIC FINDINGS: The fistula did appear to communicate to the hip joint. Cultures were taken before antibiotics were given. Copious irrigation was followed by closure of the fistula and multilayered closure with final skin closure. INDICATIONS: Mr. Partida is a fellow that was treated for a long time for infection. I took 2 rounds with an antibiotic spacer to finally get his numbers down, his numbers stayed down in the postoperative setting; however, he began to have chronic draining. The hole was about the size of an eraser tip. A fistulogram was performed and it did appear that it might communicate with the joint on the fistulogram, but was not certain. He was brought to the operating room for excision of the fistula with closure and cultures. His inflammatory markers have not been elevated. OPERATIVE SUMMARY IN DETAIL: After obtaining the appropriate preoperative orthopedic surgery consent as well as anesthetic consultation, evaluation and clearance, the patient was brought to the operating room and placed on the operating table in supine position. After general laryngeal mask airway was administered, the patient was placed in right lateral decubitus position. All pressure points were well padded to include down leg peroneal pad as well as axillary roll. The patient was held firmly to the operating table using the vacuum pack suction system. Left lower extremity and hip were then prepped and draped in routine sterile fashion. Before anything else was done, cultures were taken as deep as possible in triplicate for Gram stain, aerobic, and anaerobic culture. Having completed this, an elliptical incision was drawn about the area of the fistula and it was prior to incision, methylene blue was placed in the tract. Elliptical incision was taken and then the tract was carefully dissected down to its deepest level where upon excision of the tract, the methylene blue was seen, appeared to be communicated with the lateral aspect of the femur and joint itself. At this point, copious pulsatile lavage irrigation was followed by closure with #2 Ethibond. The IT band was closed with #2 Ethibond. This was then followed by elevating the skin edges with a good layer of subcutaneous fat to avoid any type of necrosis and then vertical mattress sutures were put in to toyin the wound edge. Having completed this, sterile dressings were applied. The patient was awakened, LMA was removed. He was taken to recovery room in stable condition. All final needle and sponge counts were correct. TRANSINT:[id number] Voice Confirmation ID: [id number] DOCUMENT ID: [id number] OPERATIVE REPORT [id number] ROSEMARY PARTIDA MD, LANDON REIS at 1158 CC: [id number] DICTATION DATE: 02/26/18 1442 CREATIVE STRATEGIST: 02/26/18 1526 [facility] 02/26/[address] [address]
[2018-02-26 11:38] VITALS: BP 108/57; Ht 185.4 cm; Wt 136.1 kg
[2018-02-26] MEDS ORDERED: PERCOCET 10/3251 TA1 PO (14:35)
== END 2018-02-26 16:45 | disposition home or self-care (01) ==
LOC: D.OPS 10:05 → D.PAN 12:15 → D.OPS 15:30 → D.PAN 15:30 → D.OPS 16:45
PROVIDERS: Anesthesiology
DX: M25.152 Fistula, left hip (principal); Z01.812 Encounter for preprocedural laboratory examination

== ENCOUNTER 2018-06-23 22:15 | Observation (INO) | payer MEDICARE ==
[~2018-06-23] VITALS: Ht 182.9 cm; Wt 127.0 kg
[2018-06-23 22:34] LABS: BASOPHILS 0.2 % (0-2); HEMATOCRIT 33.5 % (42.0-54.0); HEMOGLOBIN 11.4 g/dL (13.5-17.5); IMMATURE GRANULOCYTES 0.3 % (0-5); LYMPHOCYTES 16.2 % (15-50); MCH 25.3 pg (26.0-34.0); MCV 74.3 fL (80.0-100.0); MEAN PLATELET VOLUME 8.9 fL (7.4-10.4); MONOCYTES 2.7 % (2-11); NEUTROPHILS 77.6 % (40-80); PLATELET COUNT 206 10x3/uL (130-400); RBC 4.51 10x6/uL (4.20-6.10); RDW 16.9 % (11.5-14.5)
[2018-06-23 22:51] LABS: ALBUMIN 3.6 g/dL (3.4-5.0); ALKALINE PHOSPHATASE 276 U/L (46-116); ALT (SGPT) 291 U/L (10-68); BILIRUBIN - TOTAL 1.38 mg/dL (0.2-1.3); CALC OSMOLALITY 277 mosm/kg (275-300); CALCIUM 9.2 mg/dL (8.5-10.1); CARBON DIOXIDE 24.5 mmol/L (21.0-32.0); CHLORIDE - SERUM 105 mmol/L (98-107); CREATININE - SERUM 1.5 mg/dL (0.6-1.3); GLUCOSE 123 mg/dL (74-106); POTASSIUM - SERUM 5.4 mmol/L (3.5-5.1); PROTEIN - SERUM 9.1 g/dL (6.4-8.2); SODIUM 137 mmol/L (136-145); UREA NITROGEN 20 mg/dL (7-18); eGFR NON AFRICAN AMERICAN 50 mL/min (90-120)
[2018-06-23 23:01] LABS: AMYLASE - SERUM 90 U/L (25-115); CKMB 0.6 U/L (0.0-3.6); CREATINE KINASE 47 UL (21-232); LIPASE 460 U/L (73-393)
[2018-06-23 23:07] LABS: TROPONIN-I < 0.017 ng/mL (0.000-0.060)
[2018-06-23 23:50] LABS: APPEARANCE CLEAR (CLEAR); BILIRUBIN NEGATIVE (NEGATIVE); COLOR YELLOW (YELLOW); GLUCOSE NEGATIVE (NEGATIVE); KETONE NEGATIVE (NEGATIVE); NITRITE NEGATIVE (NEGATIVE); PROTEIN NEGATIVE (NEGATIVE)
[2018-06-23 23:52] VITALS: BP 115/61
[2018-06-24] VITALS (7 sets, daily range): BP systolic 108–141; BP diastolic 44–64; Ht 182.9 cm; Wt 127.0 kg
[2018-06-24 06:38] LABS: BASOPHILS 0.1 % (0-2); EOSINOPHILS 0.1 % (0-7); HEMATOCRIT 30.2 % (42.0-54.0); IMMATURE GRANULOCYTES 0.3 % (0-5); MCH 24.8 pg (26.0-34.0); MCHC 33.1 g/dL (31.0-37.0); MCV 74.8 fL (80.0-100.0); MEAN PLATELET VOLUME 9.7 fL (7.4-10.4); MONOCYTES 4.3 % (2-11); NEUTROPHILS 91.2 % (40-80); PLATELET COUNT 216 10x3/uL (130-400); RBC 4.04 10x6/uL (4.20-6.10); RDW 16.9 % (11.5-14.5)
[2018-06-24 06:43] LABS: WBC 16.7 10x3/uL (4.8-10.8)
[2018-06-24 07:02] LABS: ALBUMIN 3.1 g/dL (3.4-5.0); ANION GAP 12.3 mmol/L (8-16); BILIRUBIN - TOTAL 2.89 mg/dL (0.2-1.3); CALCIUM 8.4 mg/dL (8.5-10.1); CARBON DIOXIDE 22.9 mmol/L (21.0-32.0); CREATININE - SERUM 1.6 mg/dL (0.6-1.3); POTASSIUM - SERUM 5.2 mmol/L (3.5-5.1)
[2018-06-24 15:54] LABS: % SATURATION 3 % (15-55); IRON 9 ug/dl (35-150); TOTAL IRON BIND CAPACITY 261 ug/dl (260-445); UNSAT IRON BIND CAPACITY 252 ug/dl (150-375)
[2018-06-25] VITALS: BP 123/57
[2018-06-25 04:00] VITALS: BP 154/69
[2018-06-25 07:44] LABS: ALBUMIN 2.7 g/dL (3.4-5.0); ANION GAP 14.1 mmol/L (8-16); BILIRUBIN - DIRECT 2.83 mg/dL (0.00-0.30); BILIRUBIN - INDIRECT 0.8 mg/dL (0.00-1.00); BILIRUBIN - TOTAL 3.63 mg/dL (0.2-1.3); CALCIUM 8.7 mg/dL (8.5-10.1); CARBON DIOXIDE 20.7 mmol/L (21.0-32.0); CREATININE - SERUM 1.5 mg/dL (0.6-1.3); POTASSIUM - SERUM 4.8 mmol/L (3.5-5.1); PROTEIN - SERUM 7.7 g/dL (6.4-8.2)
[2018-06-25 08:19] VITALS: BP 135/56
[2018-06-25 08:20] LABS: FOLATE (FOLIC ACID) - SERUM 12.2 ng/mL (>3.0)
[2018-06-25 11:42] VITALS: BP 118/56
[2018-06-26 09:18] LABS: HEPATITIS C ANTIBODY >11.0 (0.0-0.9)
[2018-06-26 14:23] LABS: ANA REFLEX - DIRECT Negative (Negative)
[2018-06-29 13:13] LABS: HCVGENO - HEP C QUANT HCV Not Detected IU/mL (())
[2018-06-29 15:21] LABS: MITOCHONDRIAL ANTIBODY 6.2 Units (0.0-20.0); SMOOTH MUSCLE ABS (ACTIN) 23 Units (0-19)
== END 2018-06-25 14:30 | disposition home or self-care (01) ==
LOC: D.ER 22:15 → D.M2 06-24 02:46 → D.ER 06-24 03:00 → OBSVTIME 06-25 13:31 → D.M2 06-25 14:30
PROVIDERS: Family Medicine; Internal Medicine Gastroenterology; Legal Medicine
DX: R10.11 Right upper quadrant pain (principal); R74.8 Abnormal levels of other serum enzymes; B19.20 Unspecified viral hepatitis C without hepatic coma; E11.40 Type 2 diabetes mellitus with diabetic neuropathy, unspecified; I10 Essential (primary) hypertension

== ENCOUNTER 2018-07-12 19:52 | Inpatient (IN) | payer MEDICARE ==
[~2018-07-12] VITALS: Ht 182.9 cm; Wt 136.1 kg
--- NOTE | ~2018-07-12 | MORECARE ---
CASE MANAGEMENT DISCHARGE SUMMARY PATIENT: ROSEMARY PARTIDA UNIT: [id number] ADM DATE: 07/12/18 AGE: 62 : 55 SEX: M ROOM/BED: D.2227 AUTHOR: JOSUÉ JAUREGUI PHYSICIAN: REFERRING PHYSICIAN: MAULIK SCHOFIELD MD DATE OF SERVICE: 07/20/18 Discharge Plan Patient Name: ROSEMARY PARTIDA Facility: [facility]:Max : 1955 Planned Disposition: Home Anticipated Discharge Date: Discharge Date: 07/17/2018 Expected LOS: Initial Reviewer: [email or web address] Initial Review Date: 07/13/2018 Generated: 07/20/18 5:32 pm Comments DCP- Discharge Planning Updated by [email or web address]: Ronel Alamo on 07/17/18 1:[address] Patient Name: ROSEMARY PARTIDA Encounter No: [id number] : 1955 Primary Insurance: [employer] CHO[employer] PPO MCR ADVANT Anticipated DC Date: Planned Disposition: Home External Planned Provider: : DCP follow-up note: Patient in agreement with discharge plan. Declines HHS. State his is picking him up. No changes to plan. Case management will follow and assist as needed. Ronel Alamo DCP- Discharge Planning Updated by [email or web address]: Ronel Alamo on 07/15/18 3:[address] Patient Name: ROSEMARY PARTIDA Admission Status: ER Accout number: [id number] Admission Date: 07-12-2018 : 1955 Admission Diagnosis:ACUTE PANCREATITIS WITHOUT NECROSIS OR INFECTION, UNSP Attending: MAULIK SCHOFIELD Current LOS: 3 Anticipated DC Date: Planned Disposition: Home Primary Insurance: [employer] CHOICE PPO MCR ADVANT Discharge Planning Comments: CM met with patient to discuss discharge planning, he is alone in the room. He states he lives with his . States he is independent with all ADL's and IADL's. Discussed availability of medical equipment, rehab and home health. Declines need for further equipment or home health. No needs identified at this time. CM will continue to follow and assist with discharge planning/needs. Welding Machine Operator Electro Gas: Ronel Alamo DCPIA - Discharge Planning Initial Assessment Updated by [email or web address]: Ronel Combsell on 07/15/18 4:52 pm * Is the patient Alert and Oriented? Yes * How many steps to enter\exit or inside your home? * PCP Dr. Schofield * [facility] [address] * Preadmission Environment Home with Family * ADLs Independent * Equipment Cane Glucometer Shower Chair Walker Wheelchair * List name and contact numbers for known caregivers / representatives who currently or will assist patient after discharge: Katherine Partida - - [phone] * Verbal permission to speak to the caregivers and representatives has been obtained from the patient. Yes * Community resources currently utilized None * Additional services required to return to the preadmission environment? No * Can the patient safely return to the preadmission environment? Yes * Has this patient been hospitalized within the prior 30 days at any hospital? Yes Coverage Notice Reviewer: [email or web address] - Ronel Jasmeet Notice Issued Date-Time: 07/17/2018 14:16 Notice Type: IM Discharge Notice Notice Delivered To: Patient Relationship to Patient: Self Material Loader Name: Delivery Method: HAND - Hand Delivered Brandi Days: Prior Verbal Notification: Recipient Understood Notice: Yes Recipient Signature: Yes Med Rec Note Co-signed by Attending: Coverage Notice Comment: IMM explained, signed, copy given, original placed in MR Last DP export: 07/17/18 1:17 Patient Name: ROSEMARY PARTIDA Page 27983 at 1633 All edits/amendments must be made on the electronic document DICTATION DATE: 07/20/18 1632 MEDICAL DOCTOR MD/MEDICAL DIRECTOR: VINCENT 07/20/18 163 RPT#: [id number] DC DATE:07/17/18 STATUS: DIS IN [facility] [address] [place] [address] END OF REPORT
--- NOTE | ~2018-07-12 | MORECARE ---
CASE MANAGEMENT DISCHARGE SUMMARY PATIENT: ROSEMARY KEY UNIT: [id number] ADM DATE: 07/12/18 AGE: 62 : 55 SEX: M ROOM/BED: D.2227 AUTHOR: JOSUÉ JAUREGUI PHYSICIAN: REFERRING PHYSICIAN: MAULIK SCHOFIELD MD DATE OF SERVICE: 07/14/18 Discharge Plan Patient Name: ROSEMARY KEY [facility] [facility] 1955 Planned Disposition: Anticipated Discharge Date: Discharge Date: Expected LOS: Initial Reviewer: [email or web address] Initial Review Date: 07/13/2018 Generated: 07/14/18 11:17 am Patient Name: ROSEMARY KEY Page [phone] at 1017 All edits/amendments must be made on the electronic document DICTATION DATE: 07/14/18 1017 LABORER TIN CAN: VINCENT 07/14/18 1017 RPT#: [id number] DC DATE: STATUS: ADM IN [facility] [address] [place] [address] END OF REPORT
--- NOTE | ~2018-07-12 | MORECARE ---
CASE MANAGEMENT DISCHARGE SUMMARY PATIENT: ROSEMARY PARTIDA UNIT: [id number] ADM DATE: 07/12/18 AGE: 62 : 55 SEX: M ROOM/BED: D.2227 AUTHOR: JUVENTINODOC PHYSICIAN: REFERRING PHYSICIAN: MAULIK SCHOFIELD MD DATE OF SERVICE: 07/17/18 Discharge Plan Patient Name: ROSEMARY PARTIDA Facility: [facility]:[place] : 1955 Planned Disposition: Home Anticipated Discharge Date: Discharge Date: Expected LOS: Initial Reviewer: [email or web address] Initial Review Date: 07/13/2018 Generated: 07/17/18 3:17 pm Comments DCP- Discharge Planning Updated by [email or web address]: Ronel Alamo on 07/17/18 1:[address] Patient Name: ROSEMARY PARTIDA Encounter No: [id number] : 1955 Primary Insurance: [employer] CHOICE PPO MCR ADVANT Anticipated DC Date: Planned Disposition: Home External Planned Provider: : DCP follow-up note: Patient in agreement with discharge plan. Declines HHS. State his is picking him up. No changes to plan. Case management will follow and assist as needed. Ronel Alamo DCP- Discharge Planning Updated by [email or web address]: Ronel Alamo on 07/15/18 3:[address] Patient Name: ROSEMARY PARTIDA Admission Status: ER Accout number: [id number] Admission Date: 07-12-2018 : 1955 Admission Diagnosis:ACUTE PANCREATITIS WITHOUT NECROSIS OR INFECTION, UNSP Attending: MAULIK SCHOFIELD Current LOS: 3 Anticipated DC Date: Planned Disposition: Home Primary Insurance: [employer] CHOICE PPO MCR ADVANT Discharge Planning Comments: CM met with patient to discuss discharge planning, he is alone in the room. He states he lives with his . States he is independent with all ADL's and IADL's. Discussed availability of medical equipment, rehab and home health. Declines need for further equipment or home health. No needs identified at this time. CM will continue to follow and assist with discharge planning/needs. Quality Lab Technician: Ronel Alamo DCPIA - Discharge Planning Initial Assessment Updated by [email or web address]: Ronel Alamo on 07/15/18 4:52 pm * Is the patient Alert and Oriented? Yes * How many steps to enter\exit or inside your home? * PCP Dr. Schofield * [facility] [address] * Preadmission Environment Home with Family * ADLs Independent * Equipment Cane Glucometer Shower Chair Walker Wheelchair * List name and contact numbers for known caregivers / representatives who currently or will assist patient after discharge: Katherine Partida - - [phone] * Verbal permission to speak to the caregivers and representatives has been obtained from the patient. Yes * Community resources currently utilized None * Additional services required to return to the preadmission environment? No * Can the patient safely return to the preadmission environment? Yes * Has this patient been hospitalized within the prior 30 days at any hospital? Yes Coverage Notice Reviewer: [email or web address] - Ronel Alamo Notice Issued Date-Time: 07/17/2018 14:16 Notice Type: IM Discharge Notice Notice Delivered To: Patient Relationship to Patient: Self Assessment Coordinator Name: Delivery Method: - Brandi Days: Prior Verbal Notification: Recipient Understood Notice: Recipient Signature: Med Rec Note Co-signed by Attending: Coverage Notice Comment: Last DP export: 07/15/18 3:56 Patient Name: ROSEMARY PARTIDA Page [phone] at 1417 All edits/amendments must be made on the electronic document DICTATION DATE: 07/17/181415 MATERIALS PLANNING ANALYST: VINCENT 07/17/181415 RPT#: [id number] DC DATE: STATUS: ADM IN [facility] [address] [place] [address] END OF REPORT
--- NOTE | ~2018-07-12 | MORECARE ---
CASE MANAGEMENT DISCHARGE SUMMARY PATIENT: ROSEMARY PARTIDA UNIT: [id number] ADM DATE: 07/12/18 AGE: 62 : 55 SEX: M ROOM/BED: D.2227 AUTHOR: JUVENTINO,DOC PHYSICIAN: REFERRING PHYSICIAN: MAULIK SCHOFIELD MD DATE OF SERVICE: 07/15/18 Discharge Plan Patient Name: ROSEMARY PARTIDA Facility: [facility]:[place] : 1955 Planned Disposition: Home Anticipated Discharge Date: Discharge Date: Expected LOS: Initial Reviewer: [email or web address] Initial Review Date: 07/13/2018 Generated: 07/15/18 5:56 pm Comments DCP- Discharge Planning Updated by [email or web address]: Ronel Alamo on 07/15/18 3:[address] Patient Name: ROSEMARY PARTIDA Admission Status: ER Accout number: [id number] Admission Date: 07-12-2018 : 1955 Admission Diagnosis:ACUTE PANCREATITIS WITHOUT NECROSIS OR INFECTION, UNSP Attending: MAULIK SCHOFIELD Current LOS: 3 Anticipated DC Date: Planned Disposition: Home Primary Insurance: [employer] CHOICE PPO MCR ADVANT Discharge Planning Comments: CM met with patient to discuss discharge planning, he is alone in the room. He states he lives with his . States he is independent with all ADL's and IADL's. Discussed availability of medical equipment, rehab and home health. Declines need for further equipment or home health. No needs identified at this time. CM will continue to follow and assist with discharge planning/needs. Wood Barrel Reconditioner: Ronel Alamo DCPIA - Discharge Planning Initial Assessment Updated by [email or web address]: Ronel Alamo on 07/15/18 4:52 pm * Is the patient Alert and Oriented? Yes * How many steps to enter\exit or inside your home? * PCP Dr. Schofield * Pharmacy [facility] [address] * Preadmission Environment Home with Family * ADLs Independent * Equipment Cane Glucometer Shower Chair Walker Wheelchair * List name and contact numbers for known caregivers / representatives who currently or will assist patient after discharge: Katherine Partida - [facility] - [phone] * Verbal permission to speak to the caregivers and representatives has been obtained from the patient. Yes * Community resources currently utilized None * Additional services required to return to the preadmission environment? No * Can the patient safely return to the preadmission environment? Yes * Has this patient been hospitalized within the prior 30 days at any hospital? Yes Last DP export: 07/14/18 9:17 Patient Name: ROSEMARY PARTIDA Page [id number] at 1656 All edits/amendments must be made on the electronic document DICTATION DATE: 07/15/181654 CLINICAL PARTNER: VINCENT 07/15/181654 RPT#: [id number] DC DATE: STATUS: ADM IN [facility] [address] [place] [address] END OF REPORT
[2018-07-12] MEDS ORDERED: OXYCONTIN10 MG PO (20:12)
[2018-07-12 20:25] LABS: BASOPHILS 0.2 % (0-2); EOSINOPHILS 2.8 % (0-7); HEMATOCRIT 34.4 % (42.0-54.0); HEMOGLOBIN 11.7 g/dL (13.5-17.5); IMMATURE GRANULOCYTES 0.3 % (0-5); LYMPHOCYTES 21.1 % (15-50); MCH 25.5 pg (26.0-34.0); MCV 75.1 fL (80.0-100.0); MONOCYTES 4.5 % (2-11); NEUTROPHILS 71.1 % (40-80); RBC 4.58 10x6/uL (4.20-6.10); RDW 16.5 % (11.5-14.5); WBC 5.7 10x3/uL (4.8-10.8)
[2018-07-12 20:28] LABS: PLATELET COUNT 289 10x3/uL (130-400)
[2018-07-12 20:40] LABS: ALBUMIN 3.5 g/dL (3.4-5.0); ANION GAP 14.7 mmol/L (8-16); BILIRUBIN - TOTAL 1.46 mg/dL (0.2-1.3); CALCIUM 9.3 mg/dL (8.5-10.1); CARBON DIOXIDE 23.5 mmol/L (21.0-32.0); CREATININE - SERUM 1.4 mg/dL (0.6-1.3); POTASSIUM - SERUM 5.2 mmol/L (3.5-5.1); PROTEIN - SERUM 8.9 g/dL (6.4-8.2)
[2018-07-12 21:39] LABS: APPEARANCE CLEAR (CLEAR); COLOR DK YELLOW (YELLOW); NITRITE NEGATIVE (NEGATIVE); PROTEIN NEGATIVE (NEGATIVE)
[2018-07-12 21:40] LABS: BILIRUBIN NEGATIVE (NEGATIVE); GLUCOSE 50 mg/dL (NEGATIVE); KETONE NEGATIVE (NEGATIVE)
[2018-07-12 21:41] LABS: WHITE CELLS - URINE 0-5 /hpf (0-5)
[2018-07-12 21:42] LABS: BACTERIA FEW /hpf (NONE SEEN); RED CELLS - URINE 0-5 /hpf (0-5)
[2018-07-12] MEDS ORDERED: MOBIC7.5 MG PO (23:47)
[2018-07-12] MEDS ORDERED: ZANAFLEX2 M1 PO (23:47)
[2018-07-12] MEDS ORDERED: ZOFRAN8 MG PO (23:48)
[2018-07-12 23:57] VITALS: BP 129/56; BMI 40.8
[2018-07-13 05:36] LABS: BASOPHILS 0 % (0-2); EOSINOPHILS 0.1 % (0-7); HEMATOCRIT 31.7 % (42.0-54.0); HEMOGLOBIN 10.8 g/dL (13.5-17.5); IMMATURE GRANULOCYTES 0.2 % (0-5); MCH 25.2 pg (26.0-34.0); MCHC 34.1 g/dL (31.0-37.0); MCV 74.1 fL (80.0-100.0); MEAN PLATELET VOLUME 9.2 fL (7.4-10.4); MONOCYTES 7.5 % (2-11); NEUTROPHILS 89.2 % (40-80); RBC 4.28 10x6/uL (4.20-6.10); RDW 16.6 % (11.5-14.5)
[2018-07-13 06:05] LABS: PLATELET COUNT 228 10x3/uL (130-400); WBC 11.9 10x3/uL (4.8-10.8)
[2018-07-13 06:06] LABS: ALBUMIN 2.9 g/dL (3.4-5.0); ANION GAP 14.2 mmol/L (8-16); BILIRUBIN - TOTAL 3.67 mg/dL (0.2-1.3); CALCIUM 8.6 mg/dL (8.5-10.1); CARBON DIOXIDE 22.3 mmol/L (21.0-32.0); CREATININE - SERUM 1.4 mg/dL (0.6-1.3); POTASSIUM - SERUM 4.5 mmol/L (3.5-5.1); PROTEIN - SERUM 7.7 g/dL (6.4-8.2)
[2018-07-13 06:18] VITALS: BP 106/58
[2018-07-13 07:59] VITALS: BP 99/52
[2018-07-13 12:11] VITALS: BP 108/56
[2018-07-13 15:18] VITALS: Ht 182.9 cm; Wt 136.1 kg
[2018-07-13 17:01] VITALS: BP 128/55
[2018-07-13 21:17] VITALS: BP 116/62
[2018-07-14 04:48] LABS: BASOPHILS 0.1 % (0-2); EOSINOPHILS 0.9 % (0-7); HEMATOCRIT 26.1 % (42.0-54.0); HEMOGLOBIN 8.9 g/dL (13.5-17.5); IMMATURE GRANULOCYTES 0.2 % (0-5); MCH 24.9 pg (26.0-34.0); MCHC 34.1 g/dL (31.0-37.0); MCV 73.1 fL (80.0-100.0); MONOCYTES 9.7 % (2-11); NEUTROPHILS 78.1 % (40-80); RBC 3.57 10x6/uL (4.20-6.10); RDW 16.7 % (11.5-14.5); WBC 11.9 10x3/uL (4.8-10.8)
[2018-07-14 04:57] LABS: PLATELET COUNT 174 10x3/uL (130-400)
[2018-07-14 05:04] VITALS: BP 108/72
[2018-07-14 05:11] LABS: ALBUMIN 2.5 g/dL (3.4-5.0); ANION GAP 15.2 mmol/L (8-16); BILIRUBIN - TOTAL 2.97 mg/dL (0.2-1.3); CALCIUM 8.5 mg/dL (8.5-10.1); CARBON DIOXIDE 21.7 mmol/L (21.0-32.0); CREATININE - SERUM 1.4 mg/dL (0.6-1.3); POTASSIUM - SERUM 4.9 mmol/L (3.5-5.1)
[2018-07-14 08:18] VITALS: BP 120/62
[2018-07-14 12:18] VITALS: BP 128/63
[2018-07-14 17:49] VITALS: BP 126/77
[2018-07-14 20:00] VITALS: BP 110/56
[2018-07-15 05:48] LABS: BASOPHILS 0 % (0-2); EOSINOPHILS 2.3 % (0-7); HEMATOCRIT 24.3 % (42.0-54.0); HEMOGLOBIN 8.3 g/dL (13.5-17.5); IMMATURE GRANULOCYTES 0.3 % (0-5); LYMPHOCYTES 17.1 % (15-50); MCHC 34.2 g/dL (31.0-37.0); MCV 73.2 fL (80.0-100.0); MEAN PLATELET VOLUME 9.2 fL (7.4-10.4); MONOCYTES 7.2 % (2-11); NEUTROPHILS 73.1 % (40-80); PLATELET COUNT 179 10x3/uL (130-400); RBC 3.32 10x6/uL (4.20-6.10); RDW 16.7 % (11.5-14.5)
[2018-07-15 06:00] VITALS: BP 94/53
[2018-07-15 06:13] LABS: IGG SUBCLASS 1 954 mg/dL (248-810); IGG SUBCLASS 2 540 mg/dL (130-555); IGG SUBCLASS 3 111 mg/dL (15-102); IGG SUBCLASS 4 54 mg/dL (2-96)
[2018-07-15 06:19] LABS: ALBUMIN 2.5 g/dL (3.4-5.0); ANION GAP 15.5 mmol/L (8-16); BILIRUBIN - TOTAL 1.51 mg/dL (0.2-1.3); CALCIUM 8.7 mg/dL (8.5-10.1); CARBON DIOXIDE 20.9 mmol/L (21.0-32.0); CREATININE - SERUM 1.1 mg/dL (0.6-1.3); POTASSIUM - SERUM 4.4 mmol/L (3.5-5.1); PROTEIN - SERUM 7.2 g/dL (6.4-8.2)
[2018-07-15 06:25] LABS: WBC 7.9 10x3/uL (4.8-10.8)
[2018-07-15 09:07] VITALS: BP 124/66
[2018-07-15 17:14] VITALS: BP 118/57
[2018-07-15 20:00] VITALS: BP 138/69
[2018-07-16 04:00] VITALS: BP 117/63
[2018-07-16 05:45] LABS: BASOPHILS 0.2 % (0-2); EOSINOPHILS 4.4 % (0-7); HEMATOCRIT 25.7 % (42.0-54.0); HEMOGLOBIN 8.7 g/dL (13.5-17.5); IMMATURE GRANULOCYTES 0.2 % (0-5); LYMPHOCYTES 29.9 % (15-50); MCH 24.7 pg (26.0-34.0); MCHC 33.9 g/dL (31.0-37.0); MONOCYTES 10.7 % (2-11); NEUTROPHILS 54.6 % (40-80); PLATELET COUNT 167 10x3/uL (130-400); RBC 3.52 10x6/uL (4.20-6.10); RDW 16.8 % (11.5-14.5)
[2018-07-16 05:59] LABS: WBC 5.2 10x3/uL (4.8-10.8)
[2018-07-16 06:03] LABS: ALBUMIN 2.4 g/dL (3.4-5.0); ALKALINE PHOSPHATASE 179 U/L (46-116); ALT (SGPT) 65 U/L (10-68); BILIRUBIN - TOTAL 0.82 mg/dL (0.2-1.3); CALCIUM 8.7 mg/dL (8.5-10.1); CARBON DIOXIDE 23.7 mmol/L (21.0-32.0); CHLORIDE - SERUM 109 mmol/L (98-107); LIPASE 418 U/L (73-393); POTASSIUM - SERUM 4.7 mmol/L (3.5-5.1); PROTEIN - SERUM 7.1 g/dL (6.4-8.2); SODIUM 140 mmol/L (136-145); UREA NITROGEN 13 mg/dL (7-18); eGFR NON AFRICAN AMERICAN 80 mL/min (90-120)
[2018-07-16 06:10] LABS: AMYLASE - SERUM 62 U/L (25-115); CALC OSMOLALITY 279 mosm/kg (275-300); GLUCOSE 115 mg/dL (74-106)
[2018-07-16 09:45] VITALS: BP 112/68
[2018-07-16 13:20] VITALS: BP 134/71
[2018-07-16 17:07] VITALS: BP 120/63
[2018-07-16 20:00] VITALS: BP 129/63
[2018-07-17 04:00] VITALS: BP 140/69
[2018-07-17 08:54] VITALS: BP 125/61
[2018-07-17 12:37] VITALS: BP 141/75
== END 2018-07-17 14:39 | disposition home or self-care (01) | DRG 440 ==
LOC: D.ER 19:52 → D.MS 22:59
PROVIDERS: Family Medicine; Internal Medicine Gastroenterology; Legal Medicine
DX: K85.90 Acute pancreatitis without necrosis or infection, unspecified (principal); D50.9 Iron deficiency anemia, unspecified; B19.20 Unspecified viral hepatitis C without hepatic coma; E11.9 Type 2 diabetes mellitus without complications; I10 Essential (primary) hypertension; F17.210 Nicotine dependence, cigarettes, uncomplicated

== ENCOUNTER 2018-09-11 18:12 | Emergency (ER) | payer MEDICARE ==
[~2018-09-11] VITALS: Ht 182.9 cm; Wt 136.4 kg
[~2018-09-11 18:12] MED LIST changes: +ZANAFLEX2 M1 PO; +ZOFRAN8 MG PO
[2018-09-11 18:32] VITALS: Ht 182.9 cm; Wt 136.4 kg
[2018-09-11 19:38] LABS: APPEARANCE CLEAR (CLEAR); BILIRUBIN NEGATIVE (NEGATIVE); COLOR YELLOW (YELLOW); GLUCOSE NEGATIVE (NEGATIVE); KETONE NEGATIVE (NEGATIVE); NITRITE NEGATIVE (NEGATIVE); PROTEIN NEGATIVE (NEGATIVE)
[2018-09-11 19:40] LABS: BACTERIA FEW /hpf (NONE SEEN); RED CELLS - URINE OCC /hpf (0-5); WHITE CELLS - URINE RARE /hpf (0-5)
[2018-09-11 19:53] LABS: BASOPHILS 0.1 % (0-2); HEMATOCRIT 34.8 % (42.0-54.0); HEMOGLOBIN 12.3 g/dL (13.5-17.5); IMMATURE GRANULOCYTES 0.1 % (0-5); LYMPHOCYTES 7.8 % (15-50); MCH 26.2 pg (26.0-34.0); MCHC 35.3 g/dL (31.0-37.0); MCV 74.2 fL (80.0-100.0); MEAN PLATELET VOLUME 9.4 fL (7.4-10.4); RBC 4.69 10x6/uL (4.20-6.10); RDW 17.1 % (11.5-14.5)
[2018-09-11 20:05] LABS: PLATELET COUNT 214 10x3/uL (130-400)
[2018-09-11 20:24] LABS: ALBUMIN 3.6 g/dL (3.4-5.0); ANION GAP 17.8 mmol/L (8-16); BILIRUBIN - TOTAL 3.02 mg/dL (0.2-1.3); CALCIUM 9.1 mg/dL (8.5-10.1); CARBON DIOXIDE 22.5 mmol/L (21.0-32.0); CREATININE - SERUM 1.2 mg/dL (0.6-1.3); MAGNESIUM - SERUM 1.8 mg/dL (1.8-2.4); POTASSIUM - SERUM 5.3 mmol/L (3.5-5.1); PROTEIN - SERUM 8.6 g/dL (6.4-8.2)
[2018-09-11] MEDS ORDERED: ZOFRAN ODT4 MG/UDTAB PO (21:11)
[2018-09-11 22:30] VITALS: BP 119/62
== END 2018-09-11 22:31 | disposition home or self-care (01) ==
LOC: D.ER 18:12
PROVIDERS: Emergency Medicine; Family Medicine
DX: R10.9 Unspecified abdominal pain (principal); K76.9 Liver disease, unspecified; R11.10 Vomiting, unspecified; E11.9 Type 2 diabetes mellitus without complications; I10 Essential (primary) hypertension

== ENCOUNTER 2018-09-12 18:27 | Inpatient (IN) | payer MEDICARE ==
[~2018-09-12] VITALS: Ht 182.9 cm; Wt 131.1 kg
--- NOTE | ~2018-09-12 | MORECARE ---
CASE MANAGEMENT DISCHARGE SUMMARY PATIENT: ROSEMARY KEY UNIT: [id number] ADM DATE: 09/12/18 AGE: 62 : 55 SEX: M ROOM/BED: D.2216 AUTHOR: JOSUÉ JAUREGUI PHYSICIAN: REFERRING PHYSICIAN: MAULIK SCHOFIELD MD DATE OF SERVICE: 09/16/18 Discharge Plan Patient Name: ROSEMARY KEY Facility: [facility]:[place] : 1955 Planned Disposition: Home Anticipated Discharge Date: Discharge Date: Expected LOS: Initial Reviewer: [email or web address] Initial Review Date: 09/12/2018 Generated: 09/16/18 10:15 am Comments DCP- Discharge Planning Updated by [email or web address]: Ronel Alamo on 09/16/18 8:[address] Patient Name: ROSEMARY KEY Encounter No: [id number] : 1955 Primary Insurance: [employer] CHOICE PPO MCR ADVANT Anticipated DC Date: Planned Disposition: Home External Planned Provider: : DCP follow-up note: Patient in agreement with discharge plan. States his brother is picking him up for discharge. Declines home health. No changes to plan. Case management will follow and assist as needed. Ronel Alamo DCP- Discharge Planning Updated by [email or web address]: Katherine Garcia on 09/14/18 10:[address] Patient Name: ROSEMARY KEY Admission Status: ER Accout number: [id number] Admission Date: 09-12-2018 : 1955 Admission Diagnosis: Attending: MAULIK SCHOFIELD Current LOS: 2 Anticipated DC Date: Planned Disposition: Home Primary Insurance: [employer] CHOICE PPO MCR ADVANT Discharge Planning Comments: CM met with patient to assess discharge planning needs. Patient lives independently at home with his where he plans to return at [place]. He has a shower chair, walker, wheelchair at home .There is a ramp to get in his home. He stated that his will be the one to drive him home. He Does not use home health and does not think he will need any when he is discharged. CM will continue to follow and assist with DC planning as needed Medical Collector: Katherine Garcia DCPIA - Discharge Planning Initial Assessment Updated by [email or web address]: Katherine Garcia on 09/14/18 11:48 am * Is the patient Alert and Oriented? Yes * How many steps to enter\exit or inside your home? * PCP KANWAL * Pharmacy [facility] [address] * Preadmission Environment Home with Family * ADLs Independent * Equipment Rolling Walker Shower Chair Walker * List name and contact numbers for known caregivers / representatives who currently or will assist patient after discharge: KATHERINE KEY () [phone] * Verbal permission to speak to the caregivers and representatives has been obtained from the patient. N/A * Community resources currently utilized None * Additional services required to return to the preadmission environment? No * Can the patient safely return to the preadmission environment? Yes * Has this patient been hospitalized within the prior 30 days at any hospital? No Coverage Notice Reviewer: [email or web address] Quique Alamo Notice Issued Date-Time: 09/16/2018 9:09 Notice Type: IM Discharge Notice Notice Delivered To: Patient Relationship to Patient: Self Nnp Name: Delivery Method: HAND - Hand Delivered Brandi Days: Prior Verbal Notification: Recipient Understood Notice: Yes Recipient Signature: Yes Med Rec Note Co-signed by Attending: Coverage Notice Comment: IMM explained, signed, copy given, original placed in MR Last DP export: 09/14/18 10:52 Patient Name: ROSEMARY KEY Page 10804 at 0915 All edits/amendments must be made on the electronic document DICTATION DATE: 09/16/18913 ENVELOPE FOLD OPERATOR: VINCENT 09/16/18913 RPT#: [id number] DC DATE: STATUS: ADM IN [facility] [address] [place] [address] END OF REPORT
--- NOTE | ~2018-09-12 | MORECARE ---
CASE MANAGEMENT DISCHARGE SUMMARY PATIENT: ROSEMARY KEY UNIT: [id number] ADM DATE: 09/12/18 AGE: 62 : 55 SEX: M ROOM/BED: D.2216 AUTHOR: JOSUÉ JAUREGUI PHYSICIAN: REFERRING PHYSICIAN: MAULIK SCHOFIELD MD DATE OF SERVICE: 09/17/18 Discharge Plan Patient Name: ROSEMARY KEY Facility: [facility]:[place] : 1955 Planned Disposition: Home Anticipated Discharge Date: Discharge Date: 09/16/2018 Expected LOS: 0 Initial Reviewer: [email or web address] Initial Review Date: 09/12/2018 Generated: 09/17/18 4:54 pm Comments DCP- Discharge Planning Updated by [email or web address]: Ronel Alamo on 09/16/18 8:[address] Patient Name: ROSEMARY KEY Encounter No: [id number] : 1955 Primary Insurance: [employer] CHOICE PPO MCR ADVANT Anticipated DC Date: Planned Disposition: Home External Planned Provider: : DCP follow-up note: Patient in agreement with discharge plan. States his brother is picking him up for discharge. Declines home health. No changes to plan. Case management will follow and assist as needed. Ronel Alamo DCP- Discharge Planning Updated by [email or web address]: Katherine Garcia on 09/14/18 10:[address] Patient Name: ROSEMARY KEY Admission Status: ER Accout number: [id number] Admission Date: 09-12-2018 : 1955 Admission Diagnosis: Attending: MAULIK SCHOFIELD Current LOS: 2 Anticipated DC Date: Planned Disposition: Home Primary Insurance: [employer] CHOICE PPO MCR ADVANT Discharge Planning Comments: CM met with patient to assess discharge planning needs. Patient lives independently at home with his where he plans to return at [place]. He has a shower chair, walker, wheelchair at home .There is a ramp to get in his home. He stated that his will be the one to drive him home. He Does not use home health and does not think he will need any when he is discharged. CM will continue to follow and assist with DC planning as needed Civil Engineering Manager: Katherine Garcia DCPIA - Discharge Planning Initial Assessment Updated by [email or web address]: Katherine Garcia on 09/14/18 11:48 am * Is the patient Alert and Oriented? Yes * How many steps to enter\exit or inside your home? * PCP KANWAL * Pharmacy [facility] [address] * Preadmission Environment Home with Family * ADLs Independent * Equipment Rolling Walker Shower Chair Walker * List name and contact numbers for known caregivers / representatives who currently or will assist patient after discharge: KATHERINE KEY () [phone] * Verbal permission to speak to the caregivers and representatives has been obtained from the patient. N/A * Community resources currently utilized None * Additional services required to return to the preadmission environment? No * Can the patient safely return to the preadmission environment? Yes * Has this patient been hospitalized within the prior 30 days at any hospital? No Coverage Notice Reviewer: [email or web address] Quique Alamo Notice Issued Date-Time: 09/16/2018 9:09 Notice Type: IM Discharge Notice Notice Delivered To: Patient Relationship to Patient: Self Breakfast Cook Name: Delivery Method: HAND - Hand Delivered Brandi Days: Prior Verbal Notification: Recipient Understood Notice: Yes Recipient Signature: Yes Med Rec Note Co-signed by Attending: Coverage Notice Comment: IMM explained, signed, copy given, original placed in MR Last DP export: 09/16/18 8:15 Patient Name: ROSEMARY KEY Page [id number] at 1554 All edits/amendments must be made on the electronic document DICTATION DATE: 09/17/181552 WAREHOUSE LOADER: VINCENT 09/17/181552 RPT#: [id number] DC DATE:09/16/18 STATUS: DIS IN [facility] [address] [place] [address] END OF REPORT
--- NOTE | ~2018-09-12 | MORECARE ---
CASE MANAGEMENT DISCHARGE SUMMARY PATIENT: ROSEMARY KEY UNIT: [id number] ADM DATE: 09/12/18 AGE: 62 : 55 SEX: M ROOM/BED: D.2216 AUTHOR: JOSUÉ JAUREGUI PHYSICIAN: REFERRING PHYSICIAN: MAULIK SCHOFIELD MD DATE OF SERVICE: 09/14/18 Discharge Plan Patient Name: ROSEMARY KEY Facility: [facility]:[place] : 1955 Planned Disposition: Home Anticipated Discharge Date: Discharge Date: Expected LOS: Initial Reviewer: [email or web address] Initial Review Date: 09/12/2018 Generated: 09/14/18 12:52 pm Comments DCP- Discharge Planning Updated by [email or web address]: Katherine Garcia on 09/14/18 10:[address] Patient Name: ROSEMARY KEY Admission Status: ER Accout number: [id number] Admission Date: 09-12-2018 : 1955 Admission Diagnosis: Attending: MAULIK SCHOFIELD Current LOS: 2 Anticipated DC Date: Planned Disposition: Home Primary Insurance: [employer] CHOICE PPO MCR ADVANT Discharge Planning Comments: CM met with patient to assess discharge planning needs. Patient lives independently at home with his where he plans to return at [place]. He has a shower chair, walker, wheelchair at home .There is a ramp to get in his home. He stated that his will be the one to drive him home. He Does not use home health and does not think he will need any when he is discharged. CM will continue to follow and assist with DC planning as needed Certified Addiction Counselor: Katherine Garcia DCPIA - Discharge Planning Initial Assessment Updated by [email or web address]: Katherine Garcia on 09/14/18 11:48 am * Is the patient Alert and Oriented? Yes * How many steps to enter\exit or inside your home? * PCP KANWAL * Pharmacy [facility] [address] * Preadmission Environment Home with Family * ADLs Independent * Equipment Rolling Walker Shower Chair Walker * List name and contact numbers for known caregivers / representatives who currently or will assist patient after discharge: KATHERINE KEY () [phone] * Verbal permission to speak to the caregivers and representatives has been obtained from the patient. N/A * Community resources currently utilized None * Additional services required to return to the preadmission environment? No * Can the patient safely return to the preadmission environment? Yes * Has this patient been hospitalized within the prior 30 days at any hospital? No Patient Name: ROSEMARY KEY Page 17830 at 1152 All edits/amendments must be made on the electronic document DICTATION DATE: 09/14/18 115 FLIGHT TEST MECHANIC: VINCENT 09/14/18 115 RPT#: [id number] DC DATE: STATUS: ADM IN [facility] [address] [place] [address] END OF REPORT
[~2018-09-12 18:27] MED LIST changes: +ZOFRAN ODT4 MG/UDTAB PO
[2018-09-12 19:16] LABS: BASOPHILS 0.1 % (0-2); EOSINOPHILS 0.7 % (0-7); HEMATOCRIT 31.8 % (42.0-54.0); HEMOGLOBIN 11.2 g/dL (13.5-17.5); IMMATURE GRANULOCYTES 0.3 % (0-5); LYMPHOCYTES 6.6 % (15-50); MCHC 35.2 g/dL (31.0-37.0); MEAN PLATELET VOLUME 9.2 fL (7.4-10.4); MONOCYTES 8.7 % (2-11); NEUTROPHILS 83.6 % (40-80); PLATELET COUNT 193 10x3/uL (130-400); RDW 17.3 % (11.5-14.5)
[2018-09-12 19:18] LABS: WBC 10.7 10x3/uL (4.8-10.8)
[2018-09-12 19:31] LABS: ALBUMIN 3.2 g/dL (3.4-5.0); ALKALINE PHOSPHATASE 219 U/L (46-116); ALT (SGPT) 234 U/L (10-68); BILIRUBIN - TOTAL 6.66 mg/dL (0.2-1.3); CALC OSMOLALITY 279 mosm/kg (275-300); CALCIUM 9.2 mg/dL (8.5-10.1); CHLORIDE - SERUM 102 mmol/L (98-107); CREATININE - SERUM 1.1 mg/dL (0.6-1.3); GLUCOSE 195 mg/dL (74-106); POTASSIUM - SERUM 4.6 mmol/L (3.5-5.1); PROTEIN - SERUM 8.4 g/dL (6.4-8.2); SODIUM 136 mmol/L (136-145); UREA NITROGEN 21 mg/dL (7-18); eGFR NON AFRICAN AMERICAN 72 mL/min (90-120)
[2018-09-12 19:35] LABS: AMYLASE - SERUM 87 U/L (25-115); LIPASE 997 U/L (73-393)
[2018-09-12 19:36] LABS: TROPONIN-I < 0.017 ng/mL (0.000-0.060)
[2018-09-12 21:09] LABS: APPEARANCE CLEAR (CLEAR); BILIRUBIN 2+ (NEGATIVE); COLOR YELLOW (YELLOW); EPITHELIAL CELLS 0-5 /hpf (0-5); GLUCOSE 250 mg/dL (NEGATIVE); KETONE NEGATIVE (NEGATIVE); NITRITE NEGATIVE (NEGATIVE); PROTEIN TRACE mg/dL (NEGATIVE); RED CELLS - URINE OCC /hpf (0-5); SPECIFIC GRAVITY 1.015 (1.005-1.020); WHITE CELLS - URINE NSEEN /hpf (0-5)
[2018-09-12 22:16] VITALS: BP 136/68; BMI 39.3
[2018-09-13] VITALS: BP 153/73
[2018-09-13 04:00] VITALS: BP 157/62
[2018-09-13 07:30] LABS: BASOPHILS 0.1 % (0-2); EOSINOPHILS 0.1 % (0-7); HEMATOCRIT 30.9 % (42.0-54.0); HEMOGLOBIN 10.8 g/dL (13.5-17.5); IMMATURE GRANULOCYTES 0.4 % (0-5); LYMPHOCYTES 3.5 % (15-50); MCH 26.1 pg (26.0-34.0); MCV 74.6 fL (80.0-100.0); MEAN PLATELET VOLUME 9.8 fL (7.4-10.4); MONOCYTES 8.7 % (2-11); NEUTROPHILS 87.2 % (40-80); PLATELET COUNT 205 10x3/uL (130-400); RBC 4.14 10x6/uL (4.20-6.10); RDW 17.2 % (11.5-14.5)
[2018-09-13 07:38] LABS: WBC 15.6 10x3/uL (4.8-10.8)
[2018-09-13 07:55] LABS: ALBUMIN 2.9 g/dL (3.4-5.0); ANION GAP 20.3 mmol/L (8-16); BILIRUBIN - TOTAL 5.8 mg/dL (0.2-1.3); CARBON DIOXIDE 17.4 mmol/L (21.0-32.0); CHOL - HDL RATIO 5.9 ratio (2.3-4.9); CREATININE - SERUM 1.1 mg/dL (0.6-1.3); LDL-HDL RATIO 3.7 ratio (1.5-3.5); MAGNESIUM - SERUM 2.1 mg/dL (1.8-2.4); POTASSIUM - SERUM 4.7 mmol/L (3.5-5.1); PROTEIN - SERUM 8.2 g/dL (6.4-8.2)
[2018-09-13 09:03] VITALS: BP 156/64
[2018-09-13 12:30] VITALS: BP 120/71
[2018-09-13 15:06] VITALS: Ht 182.9 cm; Wt 131.1 kg
[2018-09-13 17:15] VITALS: BP 118/70
[2018-09-13 20:00] VITALS: BP 114/50
[2018-09-14 04:00] VITALS: BP 148/86
[2018-09-14 05:30] LABS: ALBUMIN 2.5 g/dL (3.4-5.0); ALKALINE PHOSPHATASE 174 U/L (46-116); ALT (SGPT) 118 U/L (10-68); AMYLASE - SERUM 71 U/L (25-115); BILIRUBIN - TOTAL 5.71 mg/dL (0.2-1.3); CALC OSMOLALITY 280 mosm/kg (275-300); CALCIUM 8.7 mg/dL (8.5-10.1); CHLORIDE - SERUM 105 mmol/L (98-107); GLUCOSE 149 mg/dL (74-106); LIPASE 710 U/L (73-393); POTASSIUM - SERUM 4.3 mmol/L (3.5-5.1); PROTEIN - SERUM 6.7 g/dL (6.4-8.2); SODIUM 138 mmol/L (136-145); UREA NITROGEN 19 mg/dL (7-18); eGFR NON AFRICAN AMERICAN 80 mL/min (90-120)
[2018-09-14 07:14] LABS: BASOPHILS 0.2 % (0-2); EOSINOPHILS 1.9 % (0-7); HEMATOCRIT 25.6 % (42.0-54.0); IMMATURE GRANULOCYTES 0.9 % (0-5); MCH 25.6 pg (26.0-34.0); MCHC 35.2 g/dL (31.0-37.0); MCV 72.9 fL (80.0-100.0); MEAN PLATELET VOLUME 10.1 fL (7.4-10.4); MONOCYTES 9.7 % (2-11); NEUTROPHILS 74.3 % (40-80); PLATELET COUNT 169 10x3/uL (130-400); RBC 3.51 10x6/uL (4.20-6.10)
[2018-09-14 07:20] LABS: WBC 9.7 10x3/uL (4.8-10.8)
[2018-09-14 08:10] VITALS: BP 124/60
[2018-09-14 12:03] VITALS: BP 124/55
[2018-09-14 16:16] VITALS: BP 135/67
[2018-09-14 21:06] VITALS: BP 143/73
[2018-09-15] VITALS: BP 137/64
[2018-09-15 06:35] VITALS: BP 138/64
[2018-09-15 06:37] LABS: LIPASE 178 U/L (73-393)
[2018-09-15 06:39] LABS: AMYLASE - SERUM 29 U/L (25-115)
[2018-09-15 09:17] VITALS: BP 127/65
[2018-09-15 09:44] LABS: ALBUMIN 2.4 g/dL (3.4-5.0); ALKALINE PHOSPHATASE 185 U/L (46-116); ALT (SGPT) 103 U/L (10-68); BILIRUBIN - TOTAL 3.89 mg/dL (0.2-1.3); CARBON DIOXIDE 22.3 mmol/L (21.0-32.0); CHLORIDE - SERUM 108 mmol/L (98-107); POTASSIUM - SERUM 3.9 mmol/L (3.5-5.1); PROTEIN - SERUM 7.4 g/dL (6.4-8.2); SODIUM 142 mmol/L (136-145); UREA NITROGEN 17 mg/dL (7-18); eGFR NON AFRICAN AMERICAN 80 mL/min (90-120)
[2018-09-15 09:59] LABS: CALC OSMOLALITY 284 mosm/kg (275-300); GLUCOSE 99 mg/dL (74-106)
[2018-09-15 12:44] VITALS: BP 109/59
[2018-09-15 16:19] VITALS: BP 133/59
[2018-09-15 20:00] VITALS: BP 128/67
[2018-09-16 01:00] VITALS: BP 131/65
[2018-09-16 04:19] LABS: BASOPHILS 0.2 % (0-2); EOSINOPHILS 3.4 % (0-7); HEMATOCRIT 25.4 % (42.0-54.0); IMMATURE GRANULOCYTES 0.3 % (0-5); LYMPHOCYTES 24.9 % (15-50); MCHC 35.4 g/dL (31.0-37.0); MCV 73.4 fL (80.0-100.0); MEAN PLATELET VOLUME 9.2 fL (7.4-10.4); NEUTROPHILS 63.2 % (40-80); RBC 3.46 10x6/uL (4.20-6.10)
[2018-09-16 04:25] LABS: PLATELET COUNT 204 10x3/uL (130-400); WBC 6.5 10x3/uL (4.8-10.8)
[2018-09-16 04:30] VITALS: BP 134/66
[2018-09-16 04:41] LABS: ALBUMIN 2.4 g/dL (3.4-5.0); ALKALINE PHOSPHATASE 196 U/L (46-116); ALT (SGPT) 90 U/L (10-68); AMYLASE - SERUM 30 U/L (25-115); BILIRUBIN - TOTAL 2.12 mg/dL (0.2-1.3); CALC OSMOLALITY 280 mosm/kg (275-300); CALCIUM 8.5 mg/dL (8.5-10.1); CARBON DIOXIDE 22.6 mmol/L (21.0-32.0); CHLORIDE - SERUM 106 mmol/L (98-107); GLUCOSE 136 mg/dL (74-106); LIPASE 128 U/L (73-393); POTASSIUM - SERUM 3.4 mmol/L (3.5-5.1); PROTEIN - SERUM 7.4 g/dL (6.4-8.2); SODIUM 140 mmol/L (136-145); UREA NITROGEN 13 mg/dL (7-18); eGFR NON AFRICAN AMERICAN 80 mL/min (90-120)
[2018-09-16 08:17] VITALS: BP 128/62
== END 2018-09-16 10:49 | disposition home or self-care (01) | DRG 440 ==
LOC: D.ER 18:27 → D.MS 21:01
PROVIDERS: Family Medicine; Legal Medicine
DX: K85.00 Idiopathic acute pancreatitis without necrosis or infection (principal); D64.9 Anemia, unspecified; E88.09 Other disorders of plasma-protein metabolism, not elsewhere classified; E11.65 Type 2 diabetes mellitus with hyperglycemia; I10 Essential (primary) hypertension

== ENCOUNTER → 2018-11-11 16:33 | Outpatient (CLI) | payer MEDICARE ==
[2018-09-13 15:06] VITALS: BMI 39.2
== END | disposition home or self-care (01) ==
LOC: D.LABREF 16:33
PROVIDERS: Family Medicine
DX: Z00.00 Encounter for general adult medical examination without abnormal findings (principal)

== ENCOUNTER → 2018-11-18 13:56 | Outpatient (CLI) | payer MEDICARE ==
[2018-09-13 15:06] VITALS: BMI 39.2
== END | disposition home or self-care (01) ==
LOC: D.LABREF 13:56
PROVIDERS: ATTEND Internal Medicine Infectious Disease
DX: T81.41XA Infection following a procedure, superficial incisional surgical site, initial encounter (principal)